=== PATIENT | male | born 1985 | race African-American/Black ===

== ENCOUNTER 2016-09-14 19:05 | Inpatient (IN) | payer SELFPAY ==
[~2016-09-14] VITALS: Ht 160 cm; Wt 56.0 kg
[2016-09-14] MEDS ORDERED: IV NORMAL SALINE 1000ML BAG 1,000 ML IV SCH (19:35)
--- NOTE | 2016-09-14 19:35 | PHYS DOC ---
Past Medical History Past Medical History: Pancreatitis Past Surgical History: No Surgical History Alcohol Use: Heavy Drug Use: None Adult General Chief Complaint Chief Complaint: ABDOMINAL PAIN HPI HPI Patient is a 31 year old male who presents with abdominal pain. Patient reports since Friday night (when he drank some alcohol) he has been having LUQ pain and N/V. Patient describes a pressure-like pain that is worse when he tries to eat or drink. He has been feeling nauseous as well; he vomited on but not since then. No fever, no diarrhea. Patient reports symptoms similar to prior episodes of pancreatitis. Review of Systems Review of Systems Constitutional: Denies fever or chills Eyes: Denies change in visual acuity or eye pain HENT: Denies nasal congestion or sore throat Respiratory: Denies cough or shortness of breath Cardiovascular: Denies chest pain GI: LUQ abdominal pain, nausea, vomiting. Denies bloody stools or diarrhea : Denies dysuria or hematuria Musculoskeletal: Denies back pain or joint pain Integument: Denies rash or skin lesions Neurologic: Denies headache, focal weakness or sensory changes Current Medications Current Medications Current Medications Medications (Trade) Dose Ordered Sig/Estuardo Start Time Stop Time Status Last Admin Dose Admin Famotidine (Pepcid) 20 mg 1X ONCE 09/14/16 19:45 09/14/16 19:46 DC 09/14/16 19:56 20 MG Morphine Sulfate 2 mg 1X ONCE 09/14/16 19:45 09/14/16 19:46 DC 09/14/16 19:55 2 MG Sodium Chloride (Iv Sodium Chloride 0.9% 1000ml Bag) 1,000 ml @ 1,000 mls/hr Q1H 09/14/16 19:35 09/14/16 20:34 DC 09/14/16 19:59 1,000 MLS/HR Allergies Allergies Allergies Coded Allergies Type Severity Reaction Last Updated Verified No Known Drug Allergies 03/24/14 No Physical Exam Physical Exam Constitutional: Well developed, well nourished, no acute distress, non-toxic appearance HENT: Normocephalic, atraumatic, bilateral external ears normal Eyes: EOMI, conjunctiva normal, no discharge Neck: Normal range of motion, no stridor Cardiovascular: Heart rate normal, regular rhythm, no murmur Lungs & Thorax: Bilateral breath sounds clear to auscultation Abdomen: Bowel sounds normal, soft, non-distended, LUQ/epigastric TTP without guarding or rebound Skin: Warm, dry, no erythema, no rash Extremities: No obvious deformity, no edema Neurologic: Alert and oriented X 3, no gross deficits noted Current Patient Data Vital Signs Vital Signs Date Time Temp Pulse Resp B/P Pulse Ox O2 Delivery O2 Flow Rate FiO2 09/14/16 19:55 13 98 Room Air 09/14/16 19:08 98.2 93 143/104 98.2 Lab Values Laboratory Tests Test 09/14/16 19:15 White Blood Count 8.8x10^3/uL (4.0-11.0) Red Blood Count 5.20x10^6/uL (4.30-5.70) Hemoglobin 14.5g/dL (13.0-17.5) Hematocrit 44.7% (39.0-53.0) Mean Corpuscular Volume 86fL (79-100) Mean Corpuscular Hemoglobin 28pg (25-35) Mean Corpuscular Hemoglobin Concent 33g/dL (31-37) Red Cell Distribution Width 15.6% (11.5-14.5) H Platelet Count 181x10^3/uL (140-400) Neutrophils (%) (Auto) 82% (31-73) H Lymphocytes (%) (Auto) 9% (24-48) L Monocytes (%) (Auto) 8% (0-9) Eosinophils (%) (Auto) 1% (0-3) Basophils (%) (Auto) 0% (0-3) Neutrophils # (Auto) 7.2x10^3uL (1.8-7.7) Lymphocytes # (Auto) 0.8x10^3/uL (1.0-4.8) L Monocytes # (Auto) 0.7x10^3/uL (0.0-1.1) Eosinophils # (Auto) 0.1x10^3/uL (0.0-0.7) Basophils # (Auto) 0.0x10^3/uL (0.0-0.2) Platelet Estimate Adequate (ADEQUATE) Giant Platelets Occ Sodium Level 140mmol/L (136-145) Potassium Level 4.1mmol/L (3.5-5.1) Chloride Level 99mmol/L (98-107) Carbon Dioxide Level 29mmol/L (21-32) Anion Gap 12 (6-14) Blood Urea Nitrogen 9mg/dL (8-26) Creatinine 0.8mg/dL (0.7-1.3) Estimated GFR (Cockcroft-Gault) 137.3 BUN/Creatinine Ratio 11 (6-20) Glucose Level 86mg/dL (70-99) Calcium Level 9.9mg/dL (8.5-10.1) Total Bilirubin 0.5mg/dL (0.2-1.0) Aspartate Amino Transferase (AST) 31U/L (15-37) Alanine Aminotransferase (ALT) 22U/L (16-63) Alkaline Phosphatase 54U/L (46-116) Total Protein 8.5g/dL (6.4-8.2) H Albumin 4.5g/dL (3.4-5.0) Albumin/Globulin Ratio 1.1 (1.0-1.7) Lipase 5026U/L (73-393) H Laboratory Tests 09/14/16 19:15 Laboratory Tests 09/14/16 19:15 EKG EKG [] Radiology/Procedures Radiology/Procedures [] Course & Med Decision Making Course & Med Decision Making Pertinent Labs and Imaging studies reviewed. (See chart for details) Patient is 31 year old male who presents with abdominal pain, nausea for the past few days after drinking alcohol. DDx includes pancreatitis, gastritis. Will check labs to evaluate. IVF bolus, pepcid, nausea meds, pain meds ordered for relief of symptoms. Labs notable for lipase >5000. Calcium, glucose wnl. Discussed results with patient, who continues to have significant pain. Discussed with Dr. Rose, will admit under his care for further evaluation and treatment. Dragon Disclaimer Dragon Disclaimer This electronic medical record was generated, in whole or in part, using a voice recognition dictation system. Departure Departure Impression: Primary Impression: Pancreatitis Disposition: ADMITTED INPATIENT Admitting Physician: Shaun Rose Condition: STABLE Referrals: NO PCP (PCP) Scripts No Active Prescriptions or Reported Meds OSBALDO HOGAN MD Sep 14, 2016 19:35
[2016-09-14 19:44] LABS: BASO % 0 % (0-3); EOS % 1 % (0-3); HEMATOCRIT 44.7 % (39.0-53.0); HEMOGLOBIN 14.5 g/dL (13.0-17.5); LYMPH # 0.8 x10^3/uL (1.0-4.8); LYMPH % 9 % (24-48); MEAN CORPUSCULAR HEMOGLOBIN 28 pg (25-35); MEAN CORPUSCULAR HGB CONC 33 g/dL (31-37); MEAN CORPUSCULAR VOLUME 86 fL (79-100); MONO % 8 % (0-9); NEUT % 82 % (31-73); PLATELET COUNT 181 x10^3/uL (140-400); RED CELL DISTRIBUTION WIDTH 15.6 % (11.5-14.5); WHITE BLOOD COUNT 8.8 x10^3/uL (4.0-11.0)
[2016-09-14] MEDS ORDERED: MORPHINE SULFATE 4 MG/ML DISP.SYRIN. IV ONE ×2 (19:45→21:30)
[2016-09-14] MEDS ORDERED: FAMOTIDINE 20 MG/2 ML VIAL IVP ONE (19:45)
[2016-09-14 19:59] LABS: CALCIUM 9.9 mg/dL (8.5-10.1); CREATININE 0.8 mg/dL (0.7-1.3); GFR 137.3
[2016-09-14 20:01] LABS: POTASSIUM 4.1 mmol/L (3.5-5.1)
[2016-09-14 20:05] LABS: ALBUMIN 4.5 g/dL (3.4-5.0); ALBUMIN/GLOBULIN RATIO 1.1 (1.0-1.7); TOTAL BILIRUBIN 0.5 mg/dL (0.2-1.0); TOTAL PROTEIN 8.5 g/dL (6.4-8.2)
[2016-09-14 20:35] LABS: PLT ESTIMATE ADEQUATE (ADEQUATE)
[2016-09-14] MEDS ORDERED: ONDANSETRON PF 4 MG/2 ML VIAL. IV ONE (21:30)
--- NOTE | 2016-09-14 21:50 | ACF ---
Admission Forms Criteria PANCREATITIS Clinical Indications for Admission to Inpatient Care (Place 'X' for any and all applicable criteria): Admission is indicated for ANY ONE of the following (1)(2)(3)(4): [X]I. Acute pancreatitis[A] as indicated by 2 or more of the following: [X]a) Abdominal pain (eg, epigastric, left upper quadrant) [X]b) Serum amylase or serum lipase greater than 3 times the upper limit of normal [ ]c) Characteristic findings from abdominal imaging (eg, pancreatic inflammation, pancreatic necrosis, peripancreatic fluid collection)[B] [ ]II. Pancreatitis (acute or chronic ) requiring inpatient care as indicated by 1 or more of the following : [ ]a) Inability to maintain oral hydration Hypoxemia [ ]b) Evidence of infection (eg, fever, peripancreatic abscess) [ ]c) Severe pain requiring acute inpatient management [ ]d) Hemodynamic instability [ ]e) Hypoxemia [ ]f) Acute renal failure [ ]g) Severe electrolyte abnormalities Extended stay beyond goal length of stay may be needed for (1)(11) [ ]a) Severe acute pancreatitis (10)(19) [ ]b) Persistent symptoms, ascites, or pleural effusion [ ]c) Abdominal compartment syndrome (10) [ ]d) Late complications [ ]e) Acute renal failure (27) [ ]f) Gallstones in gallbladder The original [employer] content created by [employer] has been revised. The portions of the content which have been revised are identified through the use of italic text or in bold,and [facility] has neither reviewed nor approved the modified material.All other unmodified content is copyright [employer]. Please see references footnoted in the original [employer] edition 2016 Admission Criteria Met?: Yes ALIA MCKINNEY Sep 14, 2016 21:50
[2016-09-14] MEDS: IV NORMAL SALINE 1000ML BAG 1,000 ML IV SCH (22:13)
[2016-09-14 22:25] VITALS: BP 118/78
[2016-09-14 23:00] VITALS: BP 141/76
[2016-09-15] MEDS: MORPHINE SULFATE 4 MG/ML DISP.SYRIN. IV PRN ×3 (00:10→14:49)
[2016-09-15 03:08] VITALS: BP 116/74
[2016-09-15] MEDS: IV NORMAL SALINE 1000ML BAG 1,000 ML IV SCH ×4 (05:48→20:20)
[2016-09-15 06:14] LABS: BASO % 1 % (0-3); EOS % 3 % (0-3); HEMATOCRIT 36.4 % (39.0-53.0); HEMOGLOBIN 11.9 g/dL (13.0-17.5); LYMPH # 1.1 x10^3/uL (1.0-4.8); LYMPH % 21 % (24-48); MEAN CORPUSCULAR HEMOGLOBIN 28 pg (25-35); MEAN CORPUSCULAR HGB CONC 33 g/dL (31-37); MEAN CORPUSCULAR VOLUME 85 fL (79-100); MONO % 11 % (0-9); NEUT % 65 % (31-73); PLATELET COUNT 144 x10^3/uL (140-400); RED BLOOD COUNT 4.27 x10^6/uL (4.30-5.70); RED CELL DISTRIBUTION WIDTH 15.6 % (11.5-14.5); WHITE BLOOD COUNT 5.4 x10^3/uL (4.0-11.0)
[2016-09-15 06:54] LABS: CALCIUM 8.5 mg/dL (8.5-10.1); CREATININE 0.8 mg/dL (0.7-1.3); GFR 137.3
[2016-09-15 07:00] VITALS: BP 123/73
[2016-09-15 07:30] LABS: POTASSIUM 2.9 mmol/L (3.5-5.1)
[2016-09-15] MEDS: ONDANSETRON PF 4 MG/2 ML VIAL. IV PRN ×3 (08:43→23:59)
[2016-09-15] MEDS: POTASSIUM CHLORIDE 10MEQ 100 ML IV SCH ×4 (08:44→12:42)
[2016-09-15] MEDS ORDERED: LORAZEPAM 2 MG/ML VIAL IV PRN (10:30)
[2016-09-15] MEDS ORDERED: HALOPERIDOL LACT 5 MG/ML VIAL. IVP PRN (10:30)
--- NOTE | 2016-09-15 10:32 | PDOC1 ---
History and Physical Past Medical History Past Medical History pancreatitis. Family History Family History no pancreatitis. Social History Smoke: No ALCOHOL: heavy Current Problem List Problem List Problems Medical Problems: (1) Pancreatitis Status: Acute Current Medications Current Medications Current Medications Medications (Trade) Dose Ordered Sig/Estuardo Start Time Stop Time Status Last Admin Dose Admin Famotidine (Pepcid) 20 mg 1X ONCE 09/14/16 19:45 09/14/16 19:46 DC 09/14/16 19:56 20 MG Haloperidol Lactate (Haldol) 5 mg PRN Q4HRS PRN 09/15/16 10:30 Lorazepam (Ativan) 2 mg PRN Q1HR PRN 09/15/16 10:30 Morphine Sulfate 4 mg 4 mg PRN Q2HR PRN 09/14/16 21:30 09/15/16 21:29 09/15/16 05:48 4 MG Multivitamins/ Minerals/Thiamine HCl/Folic Acid/ Sodium Chloride (Infuvite Adult/ Iv Sodium Chloride 0.9% 1000ml Bag) 1,011.2 ml @ 100 mls/ hr DAILY 09/15/16 11:30 09/21/16 11:29 Ondansetron HCl (Zofran) 4 mg PRN Q8HRS PRN 09/14/16 21:30 09/15/16 21:29 09/15/16 08:43 4 MG Potassium Chloride 100 ml @ 100 mls/hr Q1H 09/15/16 08:30 09/15/16 12:29 09/15/16 08:44 100 MLS/HR Sodium Chloride 1,000 ml @ 125 mls/hr Q8H 09/14/16 21:30 09/15/16 21:29 09/15/16 05:48 125 MLS/HR Sodium Chloride (Iv Sodium Chloride 0.9% 1000ml Bag) 1,000 ml @ 1,000 mls/hr Q1H 09/14/16 19:35 09/14/16 20:34 DC 09/14/16 19:59 1,000 MLS/HR Allergies Allergies Allergies Coded Allergies Type Severity Reaction Last Updated Verified No Known Drug Allergies 03/24/14 No ROS Review of System CONSTITUTIONAL: No fever or chills EYES: No recent changes SKIN: No rash or itching CARDIOVASCULAR: No chest pain, syncope, palpitations, or edema RESPIRATORY: No SOB or cough GASTROINTESTINAL: nausea, vomiting or abdominal pain NEUROLOGICAL: No headaches or weakness ENDOCRINE: No cold or heat intolerance GENITOURINARY: No urgency or frequency of urination MUSCULOSKELETAL: No back pain or joint pain LYMPHATICS: No enlarged lymph nodes PSYCHIATRIC: No anxiety or depression Physical Exam Physical Exam GEN.: No apparent distress. Alert and oriented. HEENT: Head is normocephalic, atraumatic NECK: Supple. no jvd LUNGS: Clear to auscultation. normal airflow HEART: RRR, S1, S2 present. Peripheral pulses intact ABDOMEN: Soft, nontender. Positive bowel sounds. EXTREMITIES: Without any cyanosis. NEUROLOGIC: Normal speech, normal tone PSYCHIATRIC: Normal affect, normal mood. SKIN: No visible ulcerations Vitals Vitals Vital Signs Date Time Temp Pulse Resp B/P Pulse Ox O2 Delivery O2 Flow Rate FiO2 09/15/16 08:00 Room Air 09/15/16 07:00 97.3 75 16 123/73 96 97.3 09/15/16 05:48 3.0 Labs Labs Laboratory Tests Test 09/14/16 19:15 09/15/16 05:10 White Blood Count 8.8x10^3/uL (4.0-11.0) 5.4x10^3/uL (4.0-11.0) Red Blood Count 5.20x10^6/uL (4.30-5.70) 4.27x10^6/uL (4.30-5.70) Hemoglobin 14.5g/dL (13.0-17.5) 11.9g/dL (13.0-17.5) Hematocrit 44.7% (39.0-53.0) 36.4% (39.0-53.0) Mean Corpuscular Volume 86fL (79-100) 85fL (79-100) Mean Corpuscular Hemoglobin 28pg (25-35) 28pg (25-35) Mean Corpuscular Hemoglobin Concent 33g/dL (31-37) 33g/dL (31-37) Red Cell Distribution Width 15.6% (11.5-14.5) 15.6% (11.5-14.5) Platelet Count 181x10^3/uL (140-400) 144x10^3/uL (140-400) Neutrophils (%) (Auto) 82% (31-73) 65% (31-73) Lymphocytes (%) (Auto) 9% (24-48) 21% (24-48) Monocytes (%) (Auto) 8% (0-9) 11% (0-9) Eosinophils (%) (Auto) 1% (0-3) 3% (0-3) Basophils (%) (Auto) 0% (0-3) 1% (0-3) Neutrophils # (Auto) 7.2x10^3uL (1.8-7.7) 3.5x10^3uL (1.8-7.7) Lymphocytes # (Auto) 0.8x10^3/uL (1.0-4.8) 1.1x10^3/uL (1.0-4.8) Monocytes # (Auto) 0.7x10^3/uL (0.0-1.1) 0.6x10^3/uL (0.0-1.1) Eosinophils # (Auto) 0.1x10^3/uL (0.0-0.7) 0.1x10^3/uL (0.0-0.7) Basophils # (Auto) 0.0x10^3/uL (0.0-0.2) 0.0x10^3/uL (0.0-0.2) Platelet Estimate Adequate (ADEQUATE) Giant Platelets Occ Sodium Level 140mmol/L (136-145) 139mmol/L (136-145) Potassium Level 4.1mmol/L (3.5-5.1) 2.9mmol/L (3.5-5.1) Chloride Level 99mmol/L (98-107) 104mmol/L (98-107) Carbon Dioxide Level 29mmol/L (21-32) 27mmol/L (21-32) Anion Gap 12 (6-14) 8 (6-14) Blood Urea Nitrogen 9mg/dL (8-26) 8mg/dL (8-26) Creatinine 0.8mg/dL (0.7-1.3) 0.8mg/dL (0.7-1.3) Estimated GFR (Cockcroft-Gault) 137.3 137.3 BUN/Creatinine Ratio 11 (6-20) Glucose Level 86mg/dL (70-99) 129mg/dL (70-99) Calcium Level 9.9mg/dL (8.5-10.1) 8.5mg/dL (8.5-10.1) Total Bilirubin 0.5mg/dL (0.2-1.0) Aspartate Amino Transf (AST/SGOT) 31U/L (15-37) Alanine Aminotransferase (ALT/SGPT) 22U/L (16-63) Alkaline Phosphatase 54U/L (46-116) Total Protein 8.5g/dL (6.4-8.2) Albumin 4.5g/dL (3.4-5.0) Albumin/Globulin Ratio 1.1 (1.0-1.7) Lipase 5026U/L (73-393) Laboratory Tests Test 09/14/16 19:15 09/15/16 05:10 White Blood Count 8.8x10^3/uL (4.0-11.0) 5.4x10^3/uL (4.0-11.0) Red Blood Count 5.20x10^6/uL (4.30-5.70) 4.27x10^6/uL (4.30-5.70) Hemoglobin 14.5g/dL (13.0-17.5) 11.9g/dL (13.0-17.5) Hematocrit 44.7% (39.0-53.0) 36.4% (39.0-53.0) Mean Corpuscular Volume 86fL (79-100) 85fL (79-100) Mean Corpuscular Hemoglobin 28pg (25-35) 28pg (25-35) Mean Corpuscular Hemoglobin Concent 33g/dL (31-37) 33g/dL (31-37) Red Cell Distribution Width 15.6% (11.5-14.5) 15.6% (11.5-14.5) Platelet Count 181x10^3/uL (140-400) 144x10^3/uL (140-400) Neutrophils (%) (Auto) 82% (31-73) 65% (31-73) Lymphocytes (%) (Auto) 9% (24-48) 21% (24-48) Monocytes (%) (Auto) 8% (0-9) 11% (0-9) Eosinophils (%) (Auto) 1% (0-3) 3% (0-3) Basophils (%) (Auto) 0% (0-3) 1% (0-3) Neutrophils # (Auto) 7.2x10^3uL (1.8-7.7) 3.5x10^3uL (1.8-7.7) Lymphocytes # (Auto) 0.8x10^3/uL (1.0-4.8) 1.1x10^3/uL (1.0-4.8) Monocytes # (Auto) 0.7x10^3/uL (0.0-1.1) 0.6x10^3/uL (0.0-1.1) Eosinophils # (Auto) 0.1x10^3/uL (0.0-0.7) 0.1x10^3/uL (0.0-0.7) Basophils # (Auto) 0.0x10^3/uL (0.0-0.2) 0.0x10^3/uL (0.0-0.2) Platelet Estimate Adequate (ADEQUATE) Giant Platelets Occ Sodium Level 140mmol/L (136-145) 139mmol/L (136-145) Potassium Level 4.1mmol/L (3.5-5.1) 2.9mmol/L (3.5-5.1) Chloride Level 99mmol/L (98-107) 104mmol/L (98-107) Carbon Dioxide Level 29mmol/L (21-32) 27mmol/L (21-32) Anion Gap 12 (6-14) 8 (6-14) Blood Urea Nitrogen 9mg/dL (8-26) 8mg/dL (8-26) Creatinine 0.8mg/dL (0.7-1.3) 0.8mg/dL (0.7-1.3) Estimated GFR (Cockcroft-Gault) 137.3 137.3 BUN/Creatinine Ratio 11 (6-20) Glucose Level 86mg/dL (70-99) 129mg/dL (70-99) Calcium Level 9.9mg/dL (8.5-10.1) 8.5mg/dL (8.5-10.1) Total Bilirubin 0.5mg/dL (0.2-1.0) Aspartate Amino Transf (AST/SGOT) 31U/L (15-37) Alanine Aminotransferase (ALT/SGPT) 22U/L (16-63) Alkaline Phosphatase 54U/L (46-116) Total Protein 8.5g/dL (6.4-8.2) Albumin 4.5g/dL (3.4-5.0) Albumin/Globulin Ratio 1.1 (1.0-1.7) Lipase 5026U/L (73-393) VTE Prophylaxis Ordered VTE Prophylaxis Devices: Yes VTE Pharmacological Prophylaxi: Yes PAVAN BROWN MD Sep 15, 2016 10:32
[2016-09-15 11:00] VITALS: BP 127/76
[2016-09-15] MEDS: MVI, ADULT NO.4 WITH VIT K 10 ML, THIAMINE 100 MG, FOLIC ACID 1 MG in IV NORMAL SALINE ... IV SCH ×4 (11:28)
[2016-09-15] MEDS: ENOXAPARIN 40 MG/0.4 ML DISP.SYRIN. SQ SCH (11:29)
[2016-09-15 15:00] VITALS: BP 131/82
--- NOTE | 2016-09-15 18:11 | HP ---
ADMIT DATE: 09/15/2016 CHIEF COMPLAINT: Abdominal pain. HISTORY OF PRESENT ILLNESS: This is a 31-year-old -[place] male. The patient has prior history of pancreatitis who presented to the ER with severe abdominal pain since Friday. It was started after he drank some alcohol. The patient has a prior history of pancreatitis. Abdominal pain is located in the left upper quadrant and epigastric in nature. He also noted to have some nausea and vomiting. The patient noted this is his fourth episode of pancreatitis and is getting better with treatment and pain control. However, he tried to eat something and his pain made worse again. He denies any fever, chills, nausea, vomiting or any complications ____ in the past. PAST MEDICAL HISTORY: Please see my electronic H and P. REVIEW OF SYSTEMS: Please see my electronic H and P. PHYSICAL EXAMINATION: Please see my electronic H and P. LABORATORY FINDINGS: Sodium 140, potassium 4.1, chloride is 99, carbon dioxide 29, anion gap is 12, BUN is 9, creatinine 0.3, glucose is 86, albumin is 1.1, lipase is 5026. Hematology: Hemoglobin is 14.5, MCV is 86, platelets 181. Potassium is down to 2.9 today this morning. IMAGING STUDIES: No imaging studies done. However, I did review his old CAT scan from 02/2016. There was suspicion for acute pancreatitis. ASSESSMENT: 1. Acute on chronic pancreatitis. 2. Severe hypokalemia. 3. Intractable abdominal pain due to above. PLAN: 1. Keep the patient n.p.o. and IV hydration at least 125 mL/hour and replace potassium chloride with IV KCl. 2. Pain control with IV morphine q. 2 hours as needed and avoid CO2 narcosis 3. Multivitamin replacement and CIWA protocol to prevent alcohol withdrawal prevention with Ativan and p.r.n. Haldol. 4. If the patient symptoms did not improve or have worsening of symptoms such as fever or increased abdominal pain, consult Gastroenterology and repeat CT of the abdomen. 5. No DVT prophylaxis. 6. Plan has been explained to the patient. All questions answered. PAVAN BROWN MD DR: LUIS/david JOB#: [id number] / [id number] MTDD
[2016-09-15 19:09] VITALS: BP 130/88
[2016-09-15 23:00] VITALS: BP 126/90
[2016-09-15] MEDS ORDERED: MORPHINE SULFATE 4 MG/ML DISP.SYRIN. IV PRN (23:45)
[2016-09-16] MEDS: IV NORMAL SALINE 1000ML BAG 1,000 ML IV SCH ×3 (02:21→10:28)
[2016-09-16 03:00] VITALS: BP 121/77
[2016-09-16 07:00] VITALS: BP 123/86
--- NOTE | 2016-09-16 07:59 | PDOC ---
PROGRESS NOTES Chief Complaint Chief Complaint Alcoholic pancreatitis ASSESEMENT AND PLAN: 1. pancreatitis: acute. worsening by labs, although clinically improved. keep clear liquids for now, advance poss tonight 2. Hypokalemia: improving. replete IV 3. Hypomagnesimia: new. replete IV 4. Abd pain: on Morphine PRN. minimize use 5. EtOH W/D: CIWA protocol 6. Prophylaxis: lovenox Vitals Vitals Vital Signs Date Time Temp Pulse Resp B/P Pulse Ox O2 Delivery O2 Flow Rate FiO2 09/16/16 03:00 97.6 78 20 121/77 99 Room Air 97.6 Physical Exam General: Alert, Oriented X3, Cooperative Heart: Regular rate Lungs: Clear Abdomen: Normal bowel sounds, Other (min TTP throughout) Extremities: No edema Skin: No rashes Labs LABS Laboratory Tests Test 09/16/16 05:00 Lipase 8989U/L (73-393) Review of Systems Review of Systems feels much improved. abd pain with movement or pressure only. Comment Review of Relevant I have reviewed the following items donnie (where applicable) has been applied. Labs Laboratory Tests Test 09/14/16 19:15 09/15/16 05:10 09/16/16 05:00 White Blood Count 8.8x10^3/uL (4.0-11.0) 5.4x10^3/uL (4.0-11.0) Red Blood Count 5.20x10^6/uL (4.30-5.70) 4.27x10^6/uL (4.30-5.70) Hemoglobin 14.5g/dL (13.0-17.5) 11.9g/dL (13.0-17.5) Hematocrit 44.7% (39.0-53.0) 36.4% (39.0-53.0) Mean Corpuscular Volume 86fL (79-100) 85fL (79-100) Mean Corpuscular Hemoglobin 28pg (25-35) 28pg (25-35) Mean Corpuscular Hemoglobin Concent 33g/dL (31-37) 33g/dL (31-37) Red Cell Distribution Width 15.6% (11.5-14.5) 15.6% (11.5-14.5) Platelet Count 181x10^3/uL (140-400) 144x10^3/uL (140-400) Neutrophils (%) (Auto) 82% (31-73) 65% (31-73) Lymphocytes (%) (Auto) 9% (24-48) 21% (24-48) Monocytes (%) (Auto) 8% (0-9) 11% (0-9) Eosinophils (%) (Auto) 1% (0-3) 3% (0-3) Basophils (%) (Auto) 0% (0-3) 1% (0-3) Neutrophils # (Auto) 7.2x10^3uL (1.8-7.7) 3.5x10^3uL (1.8-7.7) Lymphocytes # (Auto) 0.8x10^3/uL (1.0-4.8) 1.1x10^3/uL (1.0-4.8) Monocytes # (Auto) 0.7x10^3/uL (0.0-1.1) 0.6x10^3/uL (0.0-1.1) Eosinophils # (Auto) 0.1x10^3/uL (0.0-0.7) 0.1x10^3/uL (0.0-0.7) Basophils # (Auto) 0.0x10^3/uL (0.0-0.2) 0.0x10^3/uL (0.0-0.2) Platelet Estimate Adequate (ADEQUATE) Giant Platelets Occ Sodium Level 140mmol/L (136-145) 139mmol/L (136-145) Potassium Level 4.1mmol/L (3.5-5.1) 2.9mmol/L (3.5-5.1) Chloride Level 99mmol/L (98-107) 104mmol/L (98-107) Carbon Dioxide Level 29mmol/L (21-32) 27mmol/L (21-32) Anion Gap 12 (6-14) 8 (6-14) Blood Urea Nitrogen 9mg/dL (8-26) 8mg/dL (8-26) Creatinine 0.8mg/dL (0.7-1.3) 0.8mg/dL (0.7-1.3) Estimated GFR (Cockcroft-Gault) 137.3 137.3 BUN/Creatinine Ratio 11 (6-20) Glucose Level 86mg/dL (70-99) 129mg/dL (70-99) Calcium Level 9.9mg/dL (8.5-10.1) 8.5mg/dL (8.5-10.1) Total Bilirubin 0.5mg/dL (0.2-1.0) Aspartate Amino Transf (AST/SGOT) 31U/L (15-37) Alanine Aminotransferase (ALT/SGPT) 22U/L (16-63) Alkaline Phosphatase 54U/L (46-116) Total Protein 8.5g/dL (6.4-8.2) Albumin 4.5g/dL (3.4-5.0) Albumin/Globulin Ratio 1.1 (1.0-1.7) Lipase 5026U/L (73-393) 8989U/L (73-393) Laboratory Tests Test 09/16/16 05:00 Lipase 8989U/L (73-393) Medications Current Medications Sodium Chloride (Iv Sodium Chloride 0.9% 1000ml Bag) 1,000 ml @ 1,000 mls/hr Q1H IV Last administered on 09/14/16 19:59; Start 09/14/16 at 19:35; Stop at 20:34; Status DC Famotidine (Pepcid) 20 mg 1X ONCE IVP Last administered on 09/14/16 19:56; Start 09/14/16 at 19:45; Stop 09/14/16 at 19:46; Status DC Morphine Sulfate 2 mg 1X ONCE IV Last administered on 09/14/16 19:55; Start 09/14/16 at 19:45; Stop 09/14/16 at 19:46; Status DC Morphine Sulfate 4 mg 1X ONCE IV Last administered on 09/14/16 21:36; Start 09/14/16 at 21:30; Stop 09/14/16 at 21:31; Status DC Ondansetron HCl (Zofran) 4 mg 1X ONCE IV Last administered on 09/14/16 21:32 ; Start 09/14/16 at 21:30; Stop 09/14/16 at 21:31; Status DC Ondansetron HCl (Zofran) 4 mg PRN Q8HRS PRN IV NAUSEA/VOMITING Last administered on 09/15/16 16:48; Start 09/14/16 at 21:30; Stop 09/15/16 at 21:29 ; Status DC Morphine Sulfate 4 mg 4 mg PRN Q2HR PRN IV PAIN Last administered on 09/15/16 14:49; Start 09/14/16 at 21:30; Stop 09/15/16 at 21:29; Status DC Sodium Chloride 1,000 ml @ 125 mls/hr Q8H IV Last administered on 09/15/16 05 :48; Start 09/14/16 at 21:30; Stop 09/15/16 at 10:30; Status DC Potassium Chloride 100 ml @ 100 mls/hr Q1H IV Last administered on 09/15/16 12:42; Start 09/15/16 at 08:30; Stop 09/15/16 at 12:29; Status DC Multivitamins/ Minerals/Thiamine HCl/Folic Acid/ Sodium Chloride (Infuvite Adult / Iv Sodium Chloride 0.9% 1000ml Bag) 1,011.2 ml @ 100 mls/ hr DAILY IV Last administered on 09/15/16 11:28; Start 09/15/16 at 11:30; Stop 09/21/16 at 11:29 Lorazepam (Ativan) 2 mg PRN Q1HR PRN IV For CIWA 8-14; Start 09/15/16 at 10:30 Haloperidol Lactate 5 mg 5 mg PRN Q4HRS PRN IVP Hallucinatns,Confusn,Delirium; Start 09/15/16 at 10:30 Sodium Chloride (Iv Sodium Chloride 0.9% 1000ml Bag) 1,000 ml @ 125 mls/hr Q8H IV Last administered on 09/16/16 02:21; Start 09/15/16 at 10:28; Stop at 10:27 Enoxaparin Sodium 40 mg 40 mg Q24H SQ Last administered on 09/15/16 11:29; Start 09/15/16 at 11:00 Sodium Chloride (Iv Sodium Chloride 0.9% 1000ml Bag) 1,000 ml @ 125 mls/hr Q8H IV Last administered on 09/16/16 02:21; Start 09/15/16 at 19:30 Morphine Sulfate 4 mg PRN Q4HRS PRN IV PAIN Last administered on 09/16/16 00: 00; Start 09/15/16 at 23:45 Ondansetron HCl (Zofran) 4 mg PRN Q6HRS PRN IV NAUSEA/VOMITING Last administered on 09/15/16 23:59; Start 09/15/16 at 23:45 Active Scripts Active No Active Prescriptions or Reported Medications Vitals/I & O Vital Sign - Last 24 Hours 09/15/16 09/15/16 09/15/16 09/15/16 08:00 11:00 15:00 19:09 Temp 97.9 98.1 98.0 97.9 98.1 98.0 Pulse 84 71 70 Resp 16 16 20 B/P 127/76 131/82 130/88 Pulse Ox 99 100 99 O2 Delivery Room Air Room Air Room Air Room Air 09/15/16 09/15/16 09/16/16 09/16/16 20:03 23:00 00:00 00:32 Temp 98.2 98.2 Pulse 74 Resp 20 18 18 B/P 126/90 Pulse Ox 97 97 97 O2 Delivery Room Air Room Air Room Air Room Air 09/16/16 03:00 Temp 97.6 97.6 Pulse 78 Resp 20 B/P 121/77 Pulse Ox 99 O2 Delivery Room Air Intake and Output 09/15/16 09/15/16 09/16/16 15:00 23:00 07:00 Intake Total 480 ml 1491.2 ml 1895 ml Output Total 800 ml 700 ml Balance 480 ml 691.2 ml 1195 ml MIRA LIU MD Sep 16, 2016 07:59
[2016-09-16 08:11] LABS: BASO % 0 % (0-3); EOS % 2 % (0-3); HEMATOCRIT 35.6 % (39.0-53.0); HEMOGLOBIN 11.5 g/dL (13.0-17.5); LYMPH % 21 % (24-48); MEAN CORPUSCULAR HEMOGLOBIN 28 pg (25-35); MEAN CORPUSCULAR HGB CONC 32 g/dL (31-37); MEAN CORPUSCULAR VOLUME 86 fL (79-100); MONO % 8 % (0-9); NEUT % 68 % (31-73); PLATELET COUNT 143 x10^3/uL (140-400); RED BLOOD COUNT 4.13 x10^6/uL (4.30-5.70); RED CELL DISTRIBUTION WIDTH 15.2 % (11.5-14.5); WHITE BLOOD COUNT 4.6 x10^3/uL (4.0-11.0)
[2016-09-16 08:16] LABS: CALCIUM 8.8 mg/dL (8.5-10.1); CREATININE 0.8 mg/dL (0.7-1.3); GFR 137.3; POTASSIUM 3.3 mmol/L (3.5-5.1)
[2016-09-16 08:22] LABS: ALBUMIN 3.2 g/dL (3.4-5.0); ALBUMIN/GLOBULIN RATIO 0.9 (1.0-1.7); MAGNESIUM 1.7 mg/dL (1.8-2.4); TOTAL BILIRUBIN 0.4 mg/dL (0.2-1.0); TOTAL PROTEIN 6.8 g/dL (6.4-8.2)
[2016-09-16] MEDS: MVI, ADULT NO.4 WITH VIT K 10 ML, THIAMINE 100 MG, FOLIC ACID 1 MG in IV NORMAL SALINE ... IV SCH ×4 (09:55)
[2016-09-16] MEDS ORDERED: MORPHINE SULFATE 2 MG/ML DISP.SYRIN. IV PRN (11:00)
[2016-09-16 11:20] VITALS: BP 124/82
[2016-09-16] MEDS: ENOXAPARIN 40 MG/0.4 ML DISP.SYRIN. SQ SCH (11:29)
[2016-09-16] MEDS ORDERED: MAGNESIUM SULFATE 2GM 50 ML IV ONE (11:30)
[2016-09-16 15:00] VITALS: BP 132/81
[2016-09-16] MEDS: POTASSIUM CHLORIDE 30 MEQ in IV 1/2 NORMAL SALINE 1,000 ML IV SCH (15:15)
[2016-09-16 19:00] VITALS: BP 135/88
[2016-09-16] MEDS: ONDANSETRON PF 4 MG/2 ML VIAL. IV PRN (21:03)
[2016-09-16] MEDS: MORPHINE SULFATE 2 MG/ML DISP.SYRIN. IV PRN (21:11)
[2016-09-16 23:00] VITALS: BP 129/89
[2016-09-17] MEDS: MORPHINE SULFATE 2 MG/ML DISP.SYRIN. IV PRN ×2 (01:13→23:07)
[2016-09-17 05:39] LABS: BASO % 1 % (0-3); EOS % 2 % (0-3); HEMATOCRIT 35.4 % (39.0-53.0); HEMOGLOBIN 11.3 g/dL (13.0-17.5); LYMPH # 1.2 x10^3/uL (1.0-4.8); LYMPH % 27 % (24-48); MEAN CORPUSCULAR HEMOGLOBIN 28 pg (25-35); MEAN CORPUSCULAR HGB CONC 32 g/dL (31-37); MEAN CORPUSCULAR VOLUME 86 fL (79-100); MONO % 11 % (0-9); NEUT % 59 % (31-73); PLATELET COUNT 152 x10^3/uL (140-400); RED CELL DISTRIBUTION WIDTH 15.1 % (11.5-14.5); WHITE BLOOD COUNT 4.3 x10^3/uL (4.0-11.0)
[2016-09-17 05:50] LABS: ALBUMIN 3.1 g/dL (3.4-5.0); ALBUMIN/GLOBULIN RATIO 0.8 (1.0-1.7); CALCIUM 8.7 mg/dL (8.5-10.1); CREATININE 0.9 mg/dL (0.7-1.3); GFR 119.9; MAGNESIUM 2.2 mg/dL (1.8-2.4); POTASSIUM 3.8 mmol/L (3.5-5.1); TOTAL BILIRUBIN 0.2 mg/dL (0.2-1.0); TOTAL PROTEIN 6.8 g/dL (6.4-8.2)
[2016-09-17 07:00] VITALS: BP 120/84
[2016-09-17] MEDS: POTASSIUM CHLORIDE 30 MEQ in IV 1/2 NORMAL SALINE 1,000 ML IV SCH ×2 (10:01→23:01)
[2016-09-17] MEDS: MVI, ADULT NO.4 WITH VIT K 10 ML, THIAMINE 100 MG, FOLIC ACID 1 MG in IV NORMAL SALINE ... IV SCH ×4 (10:01)
[2016-09-17] MEDS: ENOXAPARIN 40 MG/0.4 ML DISP.SYRIN. SQ SCH (10:03)
[2016-09-17] MEDS ORDERED: ACETAMINOPHEN 325 MG TABLET. PO PRN (10:15)
--- NOTE | 2016-09-17 10:21 | PDOC ---
PROGRESS NOTES Chief Complaint Chief Complaint Alcoholic pancreatitis ASSESEMENT AND PLAN: 1. pancreatitis: acute. worsening by labs, although clinically improved. keep clear liquids for now, advance poss tonight 2. Hypokalemia: improving. replete IV 3. Hypomagnesimia: new. replete IV 4. Abd pain: on Morphine PRN. minimize use 5. EtOH W/D: CIWA protocol 6. Prophylaxis: lovenox increase IVF, hope lipase to decrease tm and dc tmr Vitals Vitals Vital Signs Date Time Temp Pulse Resp B/P Pulse Ox O2 Delivery O2 Flow Rate FiO2 09/17/16 08:00 Room Air 09/17/16 07:00 97.8 75 17 120/84 100 97.8 Physical Exam General: Alert, Oriented X3, Cooperative Heart: Regular rate Lungs: Clear Abdomen: Normal bowel sounds, No tenderness, Other ( ) Extremities: No edema Skin: No rashes Labs LABS Laboratory Tests Test 09/17/16 04:55 White Blood Count 4.3x10^3/uL (4.0-11.0) Red Blood Count 4.10x10^6/uL (4.30-5.70) Hemoglobin 11.3g/dL (13.0-17.5) Hematocrit 35.4% (39.0-53.0) Mean Corpuscular Volume 86fL (79-100) Mean Corpuscular Hemoglobin 28pg (25-35) Mean Corpuscular Hemoglobin Concent 32g/dL (31-37) Red Cell Distribution Width 15.1% (11.5-14.5) Platelet Count 152x10^3/uL (140-400) Neutrophils (%) (Auto) 59% (31-73) Lymphocytes (%) (Auto) 27% (24-48) Monocytes (%) (Auto) 11% (0-9) Eosinophils (%) (Auto) 2% (0-3) Basophils (%) (Auto) 1% (0-3) Neutrophils # (Auto) 2.5x10^3uL (1.8-7.7) Lymphocytes # (Auto) 1.2x10^3/uL (1.0-4.8) Monocytes # (Auto) 0.5x10^3/uL (0.0-1.1) Eosinophils # (Auto) 0.1x10^3/uL (0.0-0.7) Basophils # (Auto) 0.0x10^3/uL (0.0-0.2) Sodium Level 141mmol/L (136-145) Potassium Level 3.8mmol/L (3.5-5.1) Chloride Level 108mmol/L (98-107) Carbon Dioxide Level 26mmol/L (21-32) Anion Gap 7 (6-14) Blood Urea Nitrogen 5mg/dL (8-26) Creatinine 0.9mg/dL (0.7-1.3) Estimated GFR (Cockcroft-Gault) 119.9 BUN/Creatinine Ratio 6 (6-20) Glucose Level 105mg/dL (70-99) Calcium Level 8.7mg/dL (8.5-10.1) Magnesium Level 2.2mg/dL (1.8-2.4) Total Bilirubin 0.2mg/dL (0.2-1.0) Aspartate Amino Transf (AST/SGOT) 22U/L (15-37) Alanine Aminotransferase (ALT/SGPT) 18U/L (16-63) Alkaline Phosphatase 42U/L (46-116) Total Protein 6.8g/dL (6.4-8.2) Albumin 3.1g/dL (3.4-5.0) Albumin/Globulin Ratio 0.8 (1.0-1.7) Lipase 2044U/L (73-393) Review of Systems Review of Systems no fever, chills, sob or chest pain Assessment and Plan Assessmemt and Plan Problems Medical Problems: (1) Pancreatitis Status: Acute Problems: Comment Review of Relevant I have reviewed the following items donnie (where applicable) has been applied. Labs Laboratory Tests Test 09/16/16 05:00 09/17/16 04:55 White Blood Count 4.6x10^3/uL (4.0-11.0) 4.3x10^3/uL (4.0-11.0) Red Blood Count 4.13x10^6/uL (4.30-5.70) 4.10x10^6/uL (4.30-5.70) Hemoglobin 11.5g/dL (13.0-17.5) 11.3g/dL (13.0-17.5) Hematocrit 35.6% (39.0-53.0) 35.4% (39.0-53.0) Mean Corpuscular Volume 86fL (79-100) 86fL (79-100) Mean Corpuscular Hemoglobin 28pg (25-35) 28pg (25-35) Mean Corpuscular Hemoglobin Concent 32g/dL (31-37) 32g/dL (31-37) Red Cell Distribution Width 15.2% (11.5-14.5) 15.1% (11.5-14.5) Platelet Count 143x10^3/uL (140-400) 152x10^3/uL (140-400) Neutrophils (%) (Auto) 68% (31-73) 59% (31-73) Lymphocytes (%) (Auto) 21% (24-48) 27% (24-48) Monocytes (%) (Auto) 8% (0-9) 11% (0-9) Eosinophils (%) (Auto) 2% (0-3) 2% (0-3) Basophils (%) (Auto) 0% (0-3) 1% (0-3) Neutrophils # (Auto) 3.2x10^3uL (1.8-7.7) 2.5x10^3uL (1.8-7.7) Lymphocytes # (Auto) 1.0x10^3/uL (1.0-4.8) 1.2x10^3/uL (1.0-4.8) Monocytes # (Auto) 0.4x10^3/uL (0.0-1.1) 0.5x10^3/uL (0.0-1.1) Eosinophils # (Auto) 0.1x10^3/uL (0.0-0.7) 0.1x10^3/uL (0.0-0.7) Basophils # (Auto) 0.0x10^3/uL (0.0-0.2) 0.0x10^3/uL (0.0-0.2) Sodium Level 140mmol/L (136-145) 141mmol/L (136-145) Potassium Level 3.3mmol/L (3.5-5.1) 3.8mmol/L (3.5-5.1) Chloride Level 106mmol/L (98-107) 108mmol/L (98-107) Carbon Dioxide Level 27mmol/L (21-32) 26mmol/L (21-32) Anion Gap 7 (6-14) 7 (6-14) Blood Urea Nitrogen 3mg/dL (8-26) 5mg/dL (8-26) Creatinine 0.8mg/dL (0.7-1.3) 0.9mg/dL (0.7-1.3) Estimated GFR (Cockcroft-Gault) 137.3 119.9 BUN/Creatinine Ratio 4 (6-20) 6 (6-20) Glucose Level 111mg/dL (70-99) 105mg/dL (70-99) Calcium Level 8.8mg/dL (8.5-10.1) 8.7mg/dL (8.5-10.1) Magnesium Level 1.7mg/dL (1.8-2.4) 2.2mg/dL (1.8-2.4) Total Bilirubin 0.4mg/dL (0.2-1.0) 0.2mg/dL (0.2-1.0) Aspartate Amino Transf (AST/SGOT) 25U/L (15-37) 22U/L (15-37) Alanine Aminotransferase (ALT/SGPT) 17U/L (16-63) 18U/L (16-63) Alkaline Phosphatase 41U/L (46-116) 42U/L (46-116) Total Protein 6.8g/dL (6.4-8.2) 6.8g/dL (6.4-8.2) Albumin 3.2g/dL (3.4-5.0) 3.1g/dL (3.4-5.0) Albumin/Globulin Ratio 0.9 (1.0-1.7) 0.8 (1.0-1.7) Lipase 8989U/L (73-393) 2044U/L (73-393) Laboratory Tests Test 09/17/16 04:55 White Blood Count 4.3x10^3/uL (4.0-11.0) Red Blood Count 4.10x10^6/uL (4.30-5.70) Hemoglobin 11.3g/dL (13.0-17.5) Hematocrit 35.4% (39.0-53.0) Mean Corpuscular Volume 86fL (79-100) Mean Corpuscular Hemoglobin 28pg (25-35) Mean Corpuscular Hemoglobin Concent 32g/dL (31-37) Red Cell Distribution Width 15.1% (11.5-14.5) Platelet Count 152x10^3/uL (140-400) Neutrophils (%) (Auto) 59% (31-73) Lymphocytes (%) (Auto) 27% (24-48) Monocytes (%) (Auto) 11% (0-9) Eosinophils (%) (Auto) 2% (0-3) Basophils (%) (Auto) 1% (0-3) Neutrophils # (Auto) 2.5x10^3uL (1.8-7.7) Lymphocytes # (Auto) 1.2x10^3/uL (1.0-4.8) Monocytes # (Auto) 0.5x10^3/uL (0.0-1.1) Eosinophils # (Auto) 0.1x10^3/uL (0.0-0.7) Basophils # (Auto) 0.0x10^3/uL (0.0-0.2) Sodium Level 141mmol/L (136-145) Potassium Level 3.8mmol/L (3.5-5.1) Chloride Level 108mmol/L (98-107) Carbon Dioxide Level 26mmol/L (21-32) Anion Gap 7 (6-14) Blood Urea Nitrogen 5mg/dL (8-26) Creatinine 0.9mg/dL (0.7-1.3) Estimated GFR (Cockcroft-Gault) 119.9 BUN/Creatinine Ratio 6 (6-20) Glucose Level 105mg/dL (70-99) Calcium Level 8.7mg/dL (8.5-10.1) Magnesium Level 2.2mg/dL (1.8-2.4) Total Bilirubin 0.2mg/dL (0.2-1.0) Aspartate Amino Transf (AST/SGOT) 22U/L (15-37) Alanine Aminotransferase (ALT/SGPT) 18U/L (16-63) Alkaline Phosphatase 42U/L (46-116) Total Protein 6.8g/dL (6.4-8.2) Albumin 3.1g/dL (3.4-5.0) Albumin/Globulin Ratio 0.8 (1.0-1.7) Lipase 2044U/L (73-393) Medications Current Medications Sodium Chloride (Iv Sodium Chloride 0.9% 1000ml Bag) 1,000 ml @ 1,000 mls/hr Q1H IV Last administered on 09/14/16 19:59; Start 09/14/16 at 19:35; Stop at 20:34; Status DC Famotidine (Pepcid) 20 mg 1X ONCE IVP Last administered on 09/14/16 19:56; Start 09/14/16 at 19:45; Stop 09/14/16 at 19:46; Status DC Morphine Sulfate 2 mg 1X ONCE IV Last administered on 09/14/16 19:55; Start 09/14/16 at 19:45; Stop 09/14/16 at 19:46; Status DC Morphine Sulfate 4 mg 1X ONCE IV Last administered on 09/14/16 21:36; Start 09/14/16 at 21:30; Stop 09/14/16 at 21:31; Status DC Ondansetron HCl (Zofran) 4 mg 1X ONCE IV Last administered on 09/14/16 21:32 ; Start 09/14/16 at 21:30; Stop 09/14/16 at 21:31; Status DC Ondansetron HCl (Zofran) 4 mg PRN Q8HRS PRN IV NAUSEA/VOMITING Last administered on 09/15/16 16:48; Start 09/14/16 at 21:30; Stop 09/15/16 at 21:29 ; Status DC Morphine Sulfate 4 mg 4 mg PRN Q2HR PRN IV PAIN Last administered on 09/15/16 14:49; Start 09/14/16 at 21:30; Stop 09/15/16 at 21:29; Status DC Sodium Chloride 1,000 ml @ 125 mls/hr Q8H IV Last administered on 09/15/16 05 :48; Start 09/14/16 at 21:30; Stop 09/15/16 at 10:30; Status DC Potassium Chloride 100 ml @ 100 mls/hr Q1H IV Last administered on 09/15/16 12:42; Start 09/15/16 at 08:30; Stop 09/15/16 at 12:29; Status DC Multivitamins/ Minerals/Thiamine HCl/Folic Acid/ Sodium Chloride (Infuvite Adult / Iv Sodium Chloride 0.9% 1000ml Bag) 1,011.2 ml @ 100 mls/ hr DAILY IV Last administered on 09/17/16 10:01; Start 09/15/16 at 11:30; Stop 09/21/16 at 11:29 Lorazepam (Ativan) 2 mg PRN Q1HR PRN IV For CIWA 8-14; Start 09/15/16 at 10:30 Haloperidol Lactate 5 mg 5 mg PRN Q4HRS PRN IVP Hallucinatns,Confusn,Delirium; Start 09/15/16 at 10:30 Sodium Chloride (Iv Sodium Chloride 0.9% 1000ml Bag) 1,000 ml @ 125 mls/hr Q8H IV Last administered on 09/16/16 02:21; Start 09/15/16 at 10:28; Stop at 10:27 Enoxaparin Sodium 40 mg 40 mg Q24H SQ Last administered on 09/17/16 10:03; Start 09/15/16 at 11:00 Sodium Chloride (Iv Sodium Chloride 0.9% 1000ml Bag) 1,000 ml @ 125 mls/hr Q8H IV Last administered on 09/16/16 02:21; Start 09/15/16 at 19:30; Stop at 15:29; Status DC Morphine Sulfate 4 mg PRN Q4HRS PRN IV PAIN Last administered on 09/16/16 00: 00; Start 09/15/16 at 23:45; Stop 09/16/16 at 10:49; Status DC Ondansetron HCl 4 mg 4 mg PRN Q6HRS PRN IV NAUSEA/VOMITING Last administered on 09/16/16 21:03; Start 09/15/16 at 23:45 Potassium Chloride/Sodium Chloride (Iv Sodium Chloride 0.45%) 1,015 ml @ 75 mls /hr [id number] IV Last administered on 09/17/16 10:01; Start 09/16/16 at 11:00 Morphine Sulfate 1 mg 1 mg PRN Q4HRS PRN IV PAIN SCORE 5-7; Start 09/16/16 at 11:00 Magnesium Sulfate/ Dextrose (Magnesium Sulfate PREMIX 2GM) 50 ml @ 25 mls/hr 1X ONCE IV Last administered on 09/16/16 11:30; Start 09/16/16 at 11:30; Stop 09/16/16 at 13:29; Status DC Morphine Sulfate 2 mg PRN Q4HRS PRN IV PAIN SCORE 8/10 Last administered on 01:13; Start 09/16/16 at 11:00 Active Scripts Active No Active Prescriptions or Reported Medications Vitals/I & O Vital Sign - Last 24 Hours 09/16/16 09/16/16 09/16/16 09/16/16 11:20 15:00 19:00 20:00 Temp 97.5 97.6 98.1 97.5 97.6 98.1 Pulse 87 78 86 Resp 16 16 17 B/P 124/82 132/81 135/88 Pulse Ox 95 100 99 O2 Delivery Room Air Room Air Room Air Room Air 09/16/16 09/16/16 09/17/16 09/17/16 21:11 23:00 01:13 01:43 Temp 97.9 97.9 Pulse 74 Resp 20 17 20 20 B/P 129/89 Pulse Ox 99 O2 Delivery Room Air Room Air Room Air Room Air 09/17/16 09/17/16 07:00 08:00 Temp 97.8 97.8 Pulse 75 Resp 17 B/P 120/84 Pulse Ox 100 O2 Delivery Room Air Room Air Intake and Output 09/16/16 09/16/16 09/17/16 15:00 23:00 07:00 Intake Total 840 ml Output Total 900 ml 490 ml Balance -60 ml -490 ml ELVIN MANN MD Sep 17, 2016 10:21
[2016-09-17 11:16] VITALS: BP 119/76
[2016-09-17 15:00] VITALS: BP 126/84
[2016-09-17 19:00] VITALS: BP 118/81
[2016-09-17 23:00] VITALS: BP 119/88
[2016-09-18 03:00] VITALS: BP 121/87
[2016-09-18 07:00] VITALS: BP 120/73
[2016-09-18] MEDS: MVI, ADULT NO.4 WITH VIT K 10 ML, THIAMINE 100 MG, FOLIC ACID 1 MG in IV NORMAL SALINE ... IV SCH ×4 (07:58)
[2016-09-18 10:54] VITALS: BP 114/74
--- NOTE | 2016-09-18 13:15 | PDOC3 ---
Discharge Summary [facility] Date of Admission: Sep 14, 2016 Discharge Date: Sep 18, 2016 Admitting Diagnosis 1. pancreatitis, acute, etoh induced 2. Hypokalemia 3. Hypomagnesimia 4. Abd pain 5. EtOH W/D: 6. h/o etoh pancreatitis Problems: Final Diagnosis Problems Medical Problems: (1) Pancreatitis Status: Acute Brief Hospital Course Mr. 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 HE DRank some ETOH then started to feel abd pain, lipase >5000. abd pain and lipase improved with bowl rest, IVF. dc home dc time 35min General: Alert, Oriented X3, Cooperative Heart: Regular rate Lungs: Clear Abdomen: Normal bowel sounds, No tenderness, Other ( ) Extremities: No edema Skin: No rashes Patient History: Problems: Disposition home CONDITION AT DISCHARGE: Improved Diet regular No Active Prescriptions or Reported Meds Follow Up pcp in 2 weeks ELVIN MANN MD Sep 18, 2016 13:14
== END 2016-09-18 11:46 | disposition home or self-care (01) | DRG 439 ==
LOC: ER 19:05 → 5 SOUTH 21:21
PROVIDERS: ADMIT Internal Medicine; ATTEND Internal Medicine
DX: K85.20 Alcohol induced acute pancreatitis without necrosis or infection (principal); F10.239 Alcohol dependence with withdrawal, unspecified; E87.6 Hypokalemia; K86.1 Other chronic pancreatitis
CPT/HCPCS: 36415; 80048; 80053; 83690; 83735; 85007; 85027; 96374; 96375; 96376; J1650; J2270; J2405; J3480; J7030; J7060; S0028; 99285-25

== ENCOUNTER 2017-04-09 14:09 | Emergency (ER) | payer SELFPAY ==
[~2017-04-09] VITALS: Ht 160 cm; Wt 56.7 kg
[2017-04-09 14:21] VITALS: BP 116/74
--- NOTE | 2017-04-09 14:35 | PHYS DOC ---
Past Medical History Past Medical History: Pancreatitis Past Surgical History: No Surgical History Alcohol Use: Heavy Drug Use: None Adult General Chief Complaint Chief Complaint: HEMORRHOIDS HPI HPI Patient is a 32 year old male presents to the emergency department stating that he has a history of hemorrhoids in the past. Patient states that last night had hemorrhoids they were not is painful as they are at this time. He denies any constipation. Denies any bleeding or drainage coming around the sites. He states that he's used some hemorrhoids with elevator cream however this is made her feel worse and felt like it is larger. Patient denies any straining when having a bowel movement. Denies any fever, chills he denies any abdominal pain or discomfort. Review of Systems Review of Systems Constitutional: Denies fever or chills [] Eyes: Denies change in visual acuity, redness, or eye pain [] HENT: Denies nasal congestion or sore throat [] Respiratory: Denies cough or shortness of breath [] Cardiovascular: No additional information not addressed in HPI [] GI: Denies abdominal pain, nausea, vomiting, bloody stools or diarrhea [] : Denies dysuria or hematuria. Complaint of hemorrhoids Musculoskeletal: Denies back pain or joint pain [] Integument: Denies rash or skin lesions [] Neurologic: Denies headache, focal weakness or sensory changes [] Endocrine: Denies polyuria or polydipsia [] Allergies Allergies Allergies Coded Allergies Type Severity Reaction Last Updated Verified No Known Drug Allergies 03/24/14 No Physical Exam Physical Exam Constitutional: Well developed, well nourished, no acute distress, non-toxic appearance. [] HENT: Normocephalic, atraumatic, bilateral external ears normal, oropharynx moist, no oral exudates, nose normal. [] Eyes: PERRLA, EOMI, conjunctiva normal, no discharge. [] Neck: Normal range of motion, no tenderness, supple, no stridor. [] Cardiovascular:Heart rate regular rhythm, no murmur [] Lungs & Thorax: Bilateral breath sounds clear to auscultation [] Skin: Warm, dry, no erythema, no rash. [] Back: No tenderness] Extremities: No tenderness, no cyanosis, no clubbing, ROM intact, no edema. [] Neurologic: Alert and oriented X 3, normal motor function, normal sensory function, no focal deficits noted. [] Psychologic: Affect normal, judgement normal, mood normal. [] Current Patient Data Vital Signs Vital Signs Date Time Temp Pulse Resp B/P (MAP) Pulse Ox O2 Delivery O2 Flow Rate FiO2 04/09/17 14:21 98.9 92 16 96 Room Air 98.9 EKG EKG [] Radiology/Procedures Radiology/Procedures [] Course & Med Decision Making Course & Med Decision Making Pertinent Labs and Imaging studies reviewed. (See chart for details) Rectal area appears to have a thrombosed hemorrhoid area appears hard tender and red. I was assisted with examination by RN. Patient will be referred to a colorectal surgeon at [facility] as the patient states he does not have insurance. Recommended warm sitz baths. Patient will be provided with hydrocodone for severe pain and discomfort. Recommended Colace and MiraLAX to help promote bowel movements. Patient was also encouraged to use ibuprofen or Tylenol [id number]. Patient will be discharged home in stable condition signs and symptoms to return back to emergency department as been provided. All questions and concerns have been answered at the patient's bedside. Patient will be provided with hydrocodone for severe pain and discomfort in which she was instructed will cause drowsiness as well as constipation. Recommended him not to be driving or doing anything that requires him to be alert and oriented. Also highly recommended Colace and MiraLAX as mentioned above. Dragon Disclaimer Dragon Disclaimer This electronic medical record was generated, in whole or in part, using a voice recognition dictation system. Departure Departure Impression: Primary Impression: Thrombosed hemorrhoids Disposition: 01 HOME, SELF-CARE Condition: STABLE Referrals: NO PCP (PCP) Patient Instructions: Hemorrhoids, [id number] Additional Instructions: Activity as tolerated. Medications as prescribed. Hydrocodone will cause drowsiness do not take any be alert and oriented. This medication will also cause constipation so make sure you take the Colace and MiraLAX. Follow-up with colorectal physician as listed below. Return back to emergency prior signs symptoms of become worse. Maia Mejia MD Scripts Hydrocodone/Apap 5-325 (NORCO 5-325 TABLET) 1 Each Tablet 1 TAB PO PRN Q6HRS Y for PAIN, #15 TAB 0 Refills Prov: JOCE OCAMPO [employer] 04/09/17 JOCE OCAMPO APRN Apr 09, 2017 14:35
[2017-04-09] MEDS ORDERED: HYDR-971 PO (14:55)
== END 2017-04-09 15:00 | disposition home or self-care (01) ==
LOC: ER 14:09
DX: K64.5 Perianal venous thrombosis (principal)
CPT/HCPCS: 99283

== ENCOUNTER 2017-08-01 19:00 | Emergency (ER) | payer SELFPAY ==
[~2017-08-01] VITALS: Ht 160 cm; Wt 59.0 kg
[2017-08-01 19:00] VITALS: BP 133/87
[~2017-08-01 19:00] MED LIST: HYDR-971 PO
--- NOTE | 2017-08-01 19:11 | PHYS DOC ---
Past Medical History Past Medical History: Pancreatitis Past Surgical History: No Surgical History Alcohol Use: Heavy Drug Use: None Adult General Chief Complaint Chief Complaint: HAND PROBLEM HPI HPI Patient is a 32 year old male presents the ED complaining of right hand injury times one week ago. Patient states he got mad and punched a wall. Describes the pain as sharp. Rates the pain as 7/10. Denies wrist pain, laceration, head/neck injury, nausea/vomiting, weakness, dizziness, chest pain or shortness of breath. Review of Systems Review of Systems Constitutional: Denies fever or chills [] Eyes: Denies change in visual acuity, redness, or eye pain [] HENT: Denies nasal congestion or sore throat [] Respiratory: Denies cough or shortness of breath [] Cardiovascular: No additional information not addressed in HPI [] GI: Denies abdominal pain, nausea, vomiting, bloody stools or diarrhea [] : Denies dysuria or hematuria [] Musculoskeletal: Complains of right hand injury. Denies back pain. [] Integument: Denies rash or skin lesions [] Neurologic: Denies headache, focal weakness or sensory changes [] Endocrine: Denies polyuria or polydipsia [] All other systems were reviewed and found to be within normal limits, except as documented in this note. Allergies Allergies Allergies Coded Allergies Type Severity Reaction Last Updated Verified No Known Drug Allergies 03/24/14 No Physical Exam Physical Exam Constitutional: Well developed, well nourished, no acute distress, non-toxic appearance. [] HENT: Normocephalic, atraumatic, oropharynx moist Skin: Warm, dry, no erythema, no rash. [] Back: No tenderness, no CVA tenderness. [] Extremities: MILD RIGHT 5TH FINGER TENDERNESS, NO SWELLING OR OVERLYING SKIN CHANGES. NO SNUFFBOX TENDERNESS. no cyanosis, no clubbing, ROM intact, no edema. [] Neurologic: Alert and oriented X 3, normal motor function, normal sensory function, no focal deficits noted. [] Psychologic: Affect normal, judgement normal, mood normal. [] Current Patient Data Vital Signs Vital Signs Date Time Temp Pulse Resp B/P (MAP) Pulse Ox O2 Delivery O2 Flow Rate FiO2 08/01/17 19:00 98.4 80 16 100 Room Air 98.4 EKG EKG [] Radiology/Procedures Radiology/Procedures [] PROCEDURE: HAND RIGHT 3V 3 views right hand 08/01/2017 Clinical indication: Right hand pain status post injury. Comparison: None. Findings: There is a transverse fracture of the fifth metacarpal neck with impaction and palmar angulation of the distal fracture fragment. No evidence of intra-articular extension. There is soft tissue swelling at the ulnar aspect of the hand. Joint spaces are maintained. Impression: Fifth metacarpal neck fracture with distal palmar angulation. Course & Med Decision Making Course & Med Decision Making Pertinent Labs and Imaging studies reviewed. (See chart for details) []Discussed imaging findings with patient. Patient's pain improved. Ulnar gutter splint placed. Neurovascular intact post placement. Discussed follow-up with hand surgeon early next week. Provided contact information/education. Discussed reasons to return to the ED. Patient understands and agrees with plan. Dragon Disclaimer Dragon Disclaimer This electronic medical record was generated, in whole or in part, using a voice recognition dictation system. Departure Departure Impression: Primary Impression: Boxers fracture Disposition: 01 HOME, SELF-CARE Condition: IMPROVED Referrals: NO PCP (PCP) KRISTINA RAMOS MD Patient Instructions: Boxer's Fracture Additional Instructions: HAND SURGEON: DR. SOHA Lopez Tramadol Hcl (TRAMADOL HCL) 50 Mg Tablet 1 TAB PO PRN Q6HRS, #12 TAB Prov: GINGER DAUGHERTY 08/01/17 GINGER DAUGHERTY Aug 01, 2017 19:11
[2017-08-01] MEDS ORDERED: TRAM50TA PO (19:42)
--- NOTE | 2017-08-02 08:15 | RAD ---
3 views right hand 08/01/2017 Clinical indication: Right hand pain status post injury. Comparison: None. Findings: There is a transverse fracture of the fifth metacarpal neck with impaction and palmar angulation of the distal fracture fragment. No evidence of intra-articular extension. There is soft tissue swelling at the ulnar aspect of the hand. Joint spaces are maintained. Impression: Fifth metacarpal neck fracture with distal palmar angulation.
== END 2017-08-01 20:15 | disposition home or self-care (01) ==
LOC: ER 19:00
DX: S62.336A Displaced fracture of neck of fifth metacarpal bone, right hand, initial encounter for closed fracture (principal); F10.20 Alcohol dependence, uncomplicated; Y33.XXXA Other specified events, undetermined intent, initial encounter; Y93.89 Activity, other specified; Y92.89 Other specified places as the place of occurrence of the external cause; Y99.8 Other external cause status
CPT/HCPCS: 29125; 73130; 99284-25

== ENCOUNTER 2017-09-29 06:47 | Inpatient (IN) | payer SELFPAY ==
[2017-09-29 07:21] LABS: BASO % 0 % (0-3); EOS % 0 % (0-3); HEMATOCRIT 46.4 % (39.0-53.0); HEMOGLOBIN 15.4 g/dL (13.0-17.5); LYMPH # 0.5 x10^3/uL (1.0-4.8); LYMPH % 4 % (24-48); MEAN CORPUSCULAR HEMOGLOBIN 28 pg (25-35); MEAN CORPUSCULAR HGB CONC 33 g/dL (31-37); MEAN CORPUSCULAR VOLUME 85 fL (79-100); MONO # 0.6 x10^3/uL (0.0-1.1); MONO % 4 % (0-9); NEUT # 12.4 x10^3uL (1.8-7.7); NEUT % 92 % (31-73); PLATELET COUNT 196 x10^3/uL (140-400); RED BLOOD COUNT 5.48 x10^6/uL (4.30-5.70); RED CELL DISTRIBUTION WIDTH 16.8 % (11.5-14.5); WHITE BLOOD COUNT 13.5 x10^3/uL (4.0-11.0)
[2017-09-29] MEDS: IV NORMAL SALINE 1000ML BAG 1,000 ML IV ×3 (07:22→16:43)
[2017-09-29] MEDS: MORPHINE SULFATE 10 MG/ML VIAL. IV (07:24)
[2017-09-29 07:25] LABS: ANION GAP 10 (6-14); BLOOD UREA NITROGEN 15 mg/dL (8-26); BUN/CREATININE RATIO 15 (6-20); CALCIUM 9.2 mg/dL (8.5-10.1); CARBON DIOXIDE 29 mmol/L (21-32); CHLORIDE 103 mmol/L (98-107); GFR 105.5; GLUCOSE 118 mg/dL (70-99); POTASSIUM 3.9 mmol/L (3.5-5.1); SODIUM 142 mmol/L (136-145)
[2017-09-29 07:28] LABS: ADD MAN DIFF? YES
[2017-09-29 07:31] LABS: ALK PHOS 50 U/L (46-116); ALT (SGPT) 26 U/L (16-63); AST (SGOT) 31 U/L (15-37); LIPASE 856 U/L (73-393); TOTAL BILIRUBIN 0.5 mg/dL (0.2-1.0); TOTAL PROTEIN 7.9 g/dL (6.4-8.2)
[2017-09-29] MEDS: ONDANSETRON PF 4 MG/2 ML VIAL. IV ×2 (07:45→09:03)
[2017-09-29 08:05] LABS: BILIRUBIN,URINE NEGATIVE (NEG); CLARITY,URINE CLEAR; COLOR,URINE YELLOW; GLUCOSE,URINE NEGATIVE (NEG); NITRITE,URINE NEGATIVE (NEG); PROTEIN,URINE NEGATIVE (NEG-TRACE); UROBILINOGEN,URINE 0.2 mg/dL (0.2 mg/dL)
[2017-09-29 08:08] LABS: BACTERIA,URINE FEW /HPF (0-FEW); RBC,URINE 0 /HPF (0-2)
[2017-09-29] MEDS ORDERED: diphenhydrAMINE 50 MG/ML VIAL IVP (09:15)
[2017-09-29] MEDS ORDERED: HALOPERIDOL LACTATE 5 MG/ML VIAL. IVP (09:15)
[2017-09-29] MEDS: fentaNYL PF VIAL 100 MCG/2 ML VIAL IV ×6 (09:24→21:42)
[2017-09-29 09:27] LABS: BARBITURATES NEG (NEG); BENZODIAZEPINES NEG (NEG); CANNABINOIDS NEG (NEG); COCAINE NEG (NEG); METHADONE NEG (NEG); OPIATES POS (NEG); PHENCYCLIDINE POS (NEG)
[2017-09-29 09:28] LABS: AMPHETAMINE/METHAMPHETAMINE NEG (NEG); ETHANOL, URINE NEG (NEG)
[2017-09-29 09:35] LABS: DIRECT BILIRUBIN 0.1 mg/dL (0.0-0.2)
[2017-09-29 10:37] LABS: % BANDS 1 % (0-9); % LYMPHS 7 % (24-48); % MONOS 4 % (0-10); % SEGS 88 % (35-66)
[2017-09-29 10:38] LABS: PLT ESTIMATE ADEQUATE (ADEQUATE)
[2017-09-29] MEDS: MULTIVIT INFUSN,ADULT 4,VIT K 10 ML, THIAMINE 100 MG, FOLIC ACID 1 MG in IV NORMAL SALI... IV (17:12)
[2017-09-30] MEDS: fentaNYL PF VIAL 100 MCG/2 ML VIAL IV ×6 (00:07→18:31)
[2017-09-30] MEDS: IV NORMAL SALINE 1000ML BAG 1,000 ML IV (02:14)
[2017-09-30] MEDS: ONDANSETRON PF 4 MG/2 ML VIAL. IV (02:19)
[2017-09-30 04:22] LABS: ADD MAN DIFF? NO
[2017-09-30 04:34] LABS: BASO % 0 % (0-3); EOS % 1 % (0-3); HEMATOCRIT 41.5 % (39.0-53.0); HEMOGLOBIN 13.8 g/dL (13.0-17.5); LYMPH # 0.6 x10^3/uL (1.0-4.8); LYMPH % 7 % (24-48); MEAN CORPUSCULAR HEMOGLOBIN 28 pg (25-35); MEAN CORPUSCULAR HGB CONC 33 g/dL (31-37); MEAN CORPUSCULAR VOLUME 86 fL (79-100); MONO # 0.8 x10^3/uL (0.0-1.1); MONO % 10 % (0-9); NEUT # 7.3 x10^3uL (1.8-7.7); NEUT % 83 % (31-73); PLATELET COUNT 155 x10^3/uL (140-400); RED BLOOD COUNT 4.85 x10^6/uL (4.30-5.70); RED CELL DISTRIBUTION WIDTH 16.8 % (11.5-14.5); WHITE BLOOD COUNT 8.8 x10^3/uL (4.0-11.0)
[2017-09-30 05:02] LABS: ALBUMIN 3.4 g/dL (3.4-5.0); ALBUMIN/GLOBULIN RATIO 1.1 (1.0-1.7); ALK PHOS 40 U/L (46-116); ALT (SGPT) 20 U/L (16-63); ANION GAP 9 (6-14); AST (SGOT) 23 U/L (15-37); BLOOD UREA NITROGEN 8 mg/dL (8-26); BUN/CREATININE RATIO 10 (6-20); CALCIUM 8.7 mg/dL (8.5-10.1); CARBON DIOXIDE 27 mmol/L (21-32); CHLORIDE 105 mmol/L (98-107); CREATININE 0.8 mg/dL (0.7-1.3); GFR 136.4; GLUCOSE 92 mg/dL (70-99); POTASSIUM 3.6 mmol/L (3.5-5.1); SODIUM 141 mmol/L (136-145); TOTAL BILIRUBIN 0.5 mg/dL (0.2-1.0); TOTAL PROTEIN 6.6 g/dL (6.4-8.2)
[2017-09-30] MEDS: MULTIVIT INFUSN,ADULT 4,VIT K 10 ML, THIAMINE 100 MG, FOLIC ACID 1 MG in IV NORMAL SALI... IV (09:14)
[2017-09-30] MEDS: LORazepam 1 MG TABLET PO (09:14)
[2017-09-30 13:09] LABS: LIPASE 4613 U/L (73-393)
[2017-10-01] MEDS: ONDANSETRON PF 4 MG/2 ML VIAL. IV ×2 (01:42→20:14)
[2017-10-01] MEDS: fentaNYL PF VIAL 100 MCG/2 ML VIAL IV ×4 (01:45→19:30)
[2017-10-01 06:19] LABS: ADD MAN DIFF? NO
[2017-10-01 06:48] LABS: BASO % 0 % (0-3); EOS # 0.2 x10^3/uL (0.0-0.7); EOS % 2 % (0-3); HEMATOCRIT 39.5 % (39.0-53.0); HEMOGLOBIN 13.1 g/dL (13.0-17.5); LYMPH # 0.8 x10^3/uL (1.0-4.8); LYMPH % 11 % (24-48); MEAN CORPUSCULAR HEMOGLOBIN 28 pg (25-35); MEAN CORPUSCULAR HGB CONC 33 g/dL (31-37); MEAN CORPUSCULAR VOLUME 85 fL (79-100); MONO # 0.6 x10^3/uL (0.0-1.1); MONO % 9 % (0-9); NEUT # 5.2 x10^3uL (1.8-7.7); NEUT % 77 % (31-73); PLATELET COUNT 149 x10^3/uL (140-400); RED BLOOD COUNT 4.65 x10^6/uL (4.30-5.70); RED CELL DISTRIBUTION WIDTH 16.6 % (11.5-14.5); WHITE BLOOD COUNT 6.8 x10^3/uL (4.0-11.0)
[2017-10-01 07:01] LABS: ANION GAP 6 (6-14); BLOOD UREA NITROGEN 5 mg/dL (8-26); CALCIUM 8.7 mg/dL (8.5-10.1); CARBON DIOXIDE 30 mmol/L (21-32); CHLORIDE 102 mmol/L (98-107); CREATININE 0.8 mg/dL (0.7-1.3); GFR 136.4; GLUCOSE 110 mg/dL (70-99); POTASSIUM 3.3 mmol/L (3.5-5.1); SODIUM 138 mmol/L (136-145)
[2017-10-01] MEDS: MULTIVIT INFUSN,ADULT 4,VIT K 10 ML, THIAMINE 100 MG, FOLIC ACID 1 MG in IV NORMAL SALI... IV (09:44)
[2017-10-01 11:17] LABS: LIPASE 2670 U/L (73-393)
[2017-10-01] MEDS: POTASSIUM CHLORIDE 20 MEQ TABLET.ER. PO (11:49)
[2017-10-01] MEDS ORDERED: CONTRAST GIVEN MC (14:30)
[2017-10-01] MEDS: IOHEXOL 300 MG/ML 100ML VIAL. IV (14:36)
[2017-10-01] MEDS: POLYETHYLENE GLYCOL 3350 17 GM PACKET. PO (14:59)
[2017-10-01] MEDS: LORazepam 1 MG TABLET PO (20:14)
[2017-10-02] MEDS: fentaNYL PF VIAL 100 MCG/2 ML VIAL IV ×6 (03:04→21:53)
[2017-10-02 06:22] LABS: ADD MAN DIFF? NO
[2017-10-02 06:48] LABS: ALBUMIN 3.2 g/dL (3.4-5.0); ALK PHOS 42 U/L (46-116); ALT (SGPT) 18 U/L (16-63); ANION GAP 7 (6-14); AST (SGOT) 22 U/L (15-37); BLOOD UREA NITROGEN 5 mg/dL (8-26); CARBON DIOXIDE 31 mmol/L (21-32); CHLORIDE 104 mmol/L (98-107); CREATININE 0.9 mg/dL (0.7-1.3); DIRECT BILIRUBIN 0.1 mg/dL (0.0-0.2); GFR 119.1; GLUCOSE 110 mg/dL (70-99); POTASSIUM 3.2 mmol/L (3.5-5.1); SODIUM 142 mmol/L (136-145); TOTAL BILIRUBIN 0.3 mg/dL (0.2-1.0); TOTAL PROTEIN 7.1 g/dL (6.4-8.2)
[2017-10-02 06:50] LABS: LIPASE 1749 U/L (73-393)
[2017-10-02 06:51] LABS: BASO % 1 % (0-3); EOS # 0.1 x10^3/uL (0.0-0.7); EOS % 4 % (0-3); HEMATOCRIT 41.7 % (39.0-53.0); LYMPH # 0.9 x10^3/uL (1.0-4.8); LYMPH % 21 % (24-48); MEAN CORPUSCULAR HEMOGLOBIN 28 pg (25-35); MEAN CORPUSCULAR HGB CONC 34 g/dL (31-37); MEAN CORPUSCULAR VOLUME 85 fL (79-100); MONO # 0.5 x10^3/uL (0.0-1.1); MONO % 11 % (0-9); NEUT # 2.7 x10^3uL (1.8-7.7); NEUT % 64 % (31-73); PLATELET COUNT 143 x10^3/uL (140-400); RED BLOOD COUNT 4.91 x10^6/uL (4.30-5.70); RED CELL DISTRIBUTION WIDTH 16.3 % (11.5-14.5); WHITE BLOOD COUNT 4.3 x10^3/uL (4.0-11.0)
[2017-10-02] MEDS: POLYETHYLENE GLYCOL 3350 17 GM PACKET. PO (08:39)
[2017-10-02] MEDS: MULTIVIT INFUSN,ADULT 4,VIT K 10 ML, THIAMINE 100 MG, FOLIC ACID 1 MG in IV NORMAL SALI... IV (08:39)
[2017-10-02] MEDS: ONDANSETRON PF 4 MG/2 ML VIAL. IV ×2 (09:17→19:24)
[2017-10-02 18:14] LABS: HCV ANTIBODY <0.1 s/co ratio (0.0-0.9); HEP A IGM ABDY Negative (Negative); HEP B SURFACE AG Negative (Negative)
[2017-10-03] MEDS: fentaNYL PF VIAL 100 MCG/2 ML VIAL IV ×9 (01:10→23:48)
[2017-10-03 06:04] LABS: ADD MAN DIFF? NO; BASO % 1 % (0-3); EOS # 0.1 x10^3/uL (0.0-0.7); EOS % 2 % (0-3); HEMATOCRIT 40.7 % (39.0-53.0); HEMOGLOBIN 13.7 g/dL (13.0-17.5); LYMPH # 0.9 x10^3/uL (1.0-4.8); LYMPH % 17 % (24-48); MEAN CORPUSCULAR HEMOGLOBIN 28 pg (25-35); MEAN CORPUSCULAR HGB CONC 34 g/dL (31-37); MEAN CORPUSCULAR VOLUME 83 fL (79-100); MONO # 0.5 x10^3/uL (0.0-1.1); MONO % 9 % (0-9); NEUT # 3.9 x10^3uL (1.8-7.7); NEUT % 71 % (31-73); PLATELET COUNT 151 x10^3/uL (140-400); RED BLOOD COUNT 4.91 x10^6/uL (4.30-5.70); RED CELL DISTRIBUTION WIDTH 16.2 % (11.5-14.5); WHITE BLOOD COUNT 5.5 x10^3/uL (4.0-11.0)
[2017-10-03] MEDS: ONDANSETRON PF 4 MG/2 ML VIAL. IV ×2 (06:16→20:31)
[2017-10-03 06:33] LABS: ANION GAP 7 (6-14); BLOOD UREA NITROGEN 5 mg/dL (8-26); CARBON DIOXIDE 32 mmol/L (21-32); CHLORIDE 104 mmol/L (98-107); CREATININE 0.8 mg/dL (0.7-1.3); GFR 136.4; GLUCOSE 95 mg/dL (70-99); POTASSIUM 3.6 mmol/L (3.5-5.1); SODIUM 143 mmol/L (136-145)
[2017-10-03 08:30] LABS: LIPASE 1745 U/L (73-393)
[2017-10-03] MEDS: POLYETHYLENE GLYCOL 3350 17 GM PACKET. PO ×3 (10:02→20:31)
[2017-10-03] MEDS: BISACODYL 5 MG TABLET.DR. PO (11:30)
[2017-10-03] MEDS: MULTIVIT INFUSN,ADULT 4,VIT K 10 ML, THIAMINE 100 MG, FOLIC ACID 1 MG in IV NORMAL SALI... IV (11:34)
[2017-10-04] MEDS: fentaNYL PF VIAL 100 MCG/2 ML VIAL IV ×4 (02:49→20:25)
[2017-10-04 04:29] LABS: ADD MAN DIFF? NO
[2017-10-04 04:36] LABS: BASO % 1 % (0-3); EOS # 0.1 x10^3/uL (0.0-0.7); EOS % 3 % (0-3); HEMATOCRIT 40.9 % (39.0-53.0); HEMOGLOBIN 13.6 g/dL (13.0-17.5); LYMPH % 21 % (24-48); MEAN CORPUSCULAR HEMOGLOBIN 28 pg (25-35); MEAN CORPUSCULAR HGB CONC 33 g/dL (31-37); MEAN CORPUSCULAR VOLUME 85 fL (79-100); MONO # 0.5 x10^3/uL (0.0-1.1); MONO % 10 % (0-9); NEUT # 3.1 x10^3uL (1.8-7.7); NEUT % 66 % (31-73); PLATELET COUNT 178 x10^3/uL (140-400); RED BLOOD COUNT 4.83 x10^6/uL (4.30-5.70); RED CELL DISTRIBUTION WIDTH 16.4 % (11.5-14.5); WHITE BLOOD COUNT 4.7 x10^3/uL (4.0-11.0)
[2017-10-04 05:24] LABS: ANION GAP 7 (6-14); BLOOD UREA NITROGEN 6 mg/dL (8-26); CALCIUM 9.6 mg/dL (8.5-10.1); CARBON DIOXIDE 29 mmol/L (21-32); CHLORIDE 104 mmol/L (98-107); CREATININE 0.8 mg/dL (0.7-1.3); GFR 136.4; GLUCOSE 115 mg/dL (70-99); POTASSIUM 4.3 mmol/L (3.5-5.1); SODIUM 140 mmol/L (136-145)
[2017-10-04] MEDS: ONDANSETRON PF 4 MG/2 ML VIAL. IV (05:25)
[2017-10-04 05:47] LABS: LIPASE 2971 U/L (73-393)
[2017-10-04] MEDS: MULTIVITAMIN with MINERAL TABLET. PO (09:40)
[2017-10-04] MEDS: BISACODYL 5 MG TABLET.DR. PO (09:41)
[2017-10-04] MEDS: POLYETHYLENE GLYCOL 3350 17 GM PACKET. PO ×2 (09:41→20:28)
[2017-10-04] MEDS: FOLIC ACID 1 MG TABLET. PO (09:41)
[2017-10-04] MEDS: oxyCODONE/APAP 5/325 1 TAB TABLET PO ×2 (09:41→22:34)
[2017-10-04] MEDS: MAGNESIUM HYDROXIDE 2,400 MG/30 ML ORAL.SUSP. PO (17:32)
[2017-10-05] MEDS: fentaNYL PF VIAL 100 MCG/2 ML VIAL IV ×2 (04:18→08:41)
[2017-10-05 05:51] LABS: LIPASE 2013 U/L (73-393)
[2017-10-05] MEDS: oxyCODONE/APAP 5/325 1 TAB TABLET PO (07:06)
[2017-10-05] MEDS: MULTIVITAMIN with MINERAL TABLET. PO (08:41)
[2017-10-05] MEDS: FOLIC ACID 1 MG TABLET. PO (08:41)
[2017-10-05] MEDS: POLYETHYLENE GLYCOL 3350 17 GM PACKET. PO (08:41)
== END 2017-10-05 11:59 | disposition home or self-care (01) | DRG 439 ==
LOC: ER 06:47 → 5 SOUTH 08:42
DX: K85.90 Acute pancreatitis without necrosis or infection, unspecified (principal); R18.8 Other ascites; F10.20 Alcohol dependence, uncomplicated; K86.0 Alcohol-induced chronic pancreatitis; E87.6 Hypokalemia; F17.200 Nicotine dependence, unspecified, uncomplicated; K59.00 Constipation, unspecified; K64.5 Perianal venous thrombosis
CPT/HCPCS: 36415; 74018; 74177; 80048; 80053; 80074; 80076; 80307; 81001; 82248; 83690; 85007; 85025; 96361; 96374; 96375; 99285; 99285-25; J2270; J2405; J3010; J7030; Q9967

== ENCOUNTER 2018-03-22 00:05 | Inpatient (IN) | payer SELFPAY ==
[2018-03-22] MEDS: IV NORMAL SALINE 1000ML BAG 1,000 ML IV ×5 (00:41→19:15)
[2018-03-22] MEDS: PANTOPRAZOLE IV PUSH 40 MG VIAL. IVP (00:41)
[2018-03-22] MEDS: MORPHINE SULFATE 10 MG/ML VIAL. IV (00:42)
[2018-03-22 00:43] LABS: BASO % 0 % (0-3); EOS % 0 % (0-3); HEMATOCRIT 47.2 % (39.0-53.0); HEMOGLOBIN 16.1 g/dL (13.0-17.5); LYMPH # 0.7 x10^3/uL (1.0-4.8); LYMPH % 7 % (24-48); MEAN CORPUSCULAR HEMOGLOBIN 29 pg (25-35); MEAN CORPUSCULAR HGB CONC 34 g/dL (31-37); MEAN CORPUSCULAR VOLUME 85 fL (79-100); MONO # 0.5 x10^3/uL (0.0-1.1); MONO % 5 % (0-9); NEUT # 9.1 x10^3uL (1.8-7.7); NEUT % 88 % (31-73); PLATELET COUNT 178 x10^3/uL (140-400); RED BLOOD COUNT 5.53 x10^6/uL (4.30-5.70); RED CELL DISTRIBUTION WIDTH 16.5 % (11.5-14.5); WHITE BLOOD COUNT 10.4 x10^3/uL (4.0-11.0)
[2018-03-22 00:56] LABS: ADD MAN DIFF? YES
[2018-03-22] MEDS ORDERED: CONTRAST GIVEN. MC (01:00)
[2018-03-22 02:16] LABS: ETHANOL < 10 mg/dL (0-10)
[2018-03-22 02:53] LABS: BILIRUBIN,URINE NEGATIVE (NEG); CLARITY,URINE CLEAR; COLOR,URINE YELLOW; GLUCOSE,URINE NEGATIVE (NEG); NITRITE,URINE NEGATIVE (NEG); PH,URINE 5.5; PROTEIN,URINE NEGATIVE (NEG-TRACE); UROBILINOGEN,URINE 0.2 mg/dL (0.2 mg/dL)
[2018-03-22] MEDS: MORPHINE SULFATE 4 MG/ML DISP.SYRIN. IV (02:55)
[2018-03-22 02:59] LABS: BARBITURATES NEG (NEG); BENZODIAZEPINES NEG (NEG); CANNABINOIDS NEG (NEG); COCAINE NEG (NEG); METHADONE NEG (NEG); OPIATES POS (NEG); PHENCYCLIDINE POS (NEG)
[2018-03-22 03:00] LABS: AMPHETAMINE/METHAMPHETAMINE NEG (NEG); ANION GAP 9 (6-14); BLOOD UREA NITROGEN 10 mg/dL (8-26); BUN/CREATININE RATIO 13 (6-20); CALCIUM 8.5 mg/dL (8.5-10.1); CARBON DIOXIDE 26 mmol/L (21-32); CHLORIDE 106 mmol/L (98-107); CREATININE 0.8 mg/dL (0.7-1.3); ETHANOL, URINE NEG (NEG); GFR 135.6; GLUCOSE 101 mg/dL (70-99); POTASSIUM 3.6 mmol/L (3.5-5.1); SODIUM 141 mmol/L (136-145)
[2018-03-22 03:06] LABS: ALBUMIN 3.1 g/dL (3.4-5.0); ALBUMIN/GLOBULIN RATIO 1.1 (1.0-1.7); ALK PHOS 43 U/L (46-116); ALT (SGPT) 24 U/L (16-63); AST (SGOT) 22 U/L (15-37); TOTAL BILIRUBIN 0.5 mg/dL (0.2-1.0)
[2018-03-22 03:07] LABS: BACTERIA,URINE 0 /HPF (0-FEW); RBC,URINE 0 /HPF (0-2); SQUAMOUS EPITHELIAL CELL,UR OCC /LPF; WBC,URINE OCC /HPF (0-4)
[2018-03-22] MEDS: IOHEXOL 300 MG/ML 100ML VIAL. IV (03:15)
[2018-03-22 03:19] LABS: LIPASE 2212 U/L (73-393)
[2018-03-22] MEDS ORDERED: ONDANSETRON PF 4 MG/2 ML VIAL. IV (03:45)
[2018-03-22 04:26] LABS: % EOS 1 % (0-5); % LYMPHS 13 % (24-48); % MONOS 4 % (0-10); % SEGS 82 % (35-66); PLT ESTIMATE ADEQUATE (ADEQUATE)
[2018-03-22] MEDS: MORPHINE SULFATE 2 MG/ML DISP.SYRIN. IV ×6 (05:55→21:22)
[2018-03-22] MEDS ORDERED: BISACODYL 10 MG SUPP.RECT. PR (14:00)
[2018-03-22] MEDS ORDERED: LORazepam 1 MG TABLET PO (14:00)
[2018-03-22] MEDS: MULTIVIT INFUSN,ADULT 4,VIT K 10 ML, THIAMINE 100 MG, FOLIC ACID 1 MG in IV NORMAL SALI... IV (14:01)
[2018-03-23] MEDS: MORPHINE SULFATE 2 MG/ML DISP.SYRIN. IV ×5 (00:34→22:51)
[2018-03-23 05:49] LABS: ADD MAN DIFF? NO
[2018-03-23 05:53] LABS: BASO % 1 % (0-3); EOS # 0.1 x10^3/uL (0.0-0.7); EOS % 2 % (0-3); HEMATOCRIT 41.8 % (39.0-53.0); LYMPH # 1.2 x10^3/uL (1.0-4.8); LYMPH % 23 % (24-48); MEAN CORPUSCULAR HEMOGLOBIN 29 pg (25-35); MEAN CORPUSCULAR HGB CONC 34 g/dL (31-37); MEAN CORPUSCULAR VOLUME 86 fL (79-100); MONO # 0.4 x10^3/uL (0.0-1.1); MONO % 8 % (0-9); NEUT # 3.5 x10^3uL (1.8-7.7); NEUT % 68 % (31-73); PLATELET COUNT 151 x10^3/uL (140-400); RED BLOOD COUNT 4.85 x10^6/uL (4.30-5.70); RED CELL DISTRIBUTION WIDTH 16.2 % (11.5-14.5); WHITE BLOOD COUNT 5.2 x10^3/uL (4.0-11.0)
[2018-03-23 06:36] LABS: ANION GAP 8 (6-14); BLOOD UREA NITROGEN 4 mg/dL (8-26); CARBON DIOXIDE 27 mmol/L (21-32); CHLORIDE 105 mmol/L (98-107); CREATININE 0.9 mg/dL (0.7-1.3); GFR 118.3; GLUCOSE 95 mg/dL (70-99); POTASSIUM 3.9 mmol/L (3.5-5.1); SODIUM 140 mmol/L (136-145)
[2018-03-24] MEDS: MORPHINE SULFATE 2 MG/ML DISP.SYRIN. IV ×7 (01:07→21:54)
[2018-03-24 05:43] LABS: ADD MAN DIFF? NO
[2018-03-24 05:48] LABS: BASO % 0 % (0-3); EOS # 0.1 x10^3/uL (0.0-0.7); EOS % 2 % (0-3); HEMATOCRIT 42.1 % (39.0-53.0); HEMOGLOBIN 14.3 g/dL (13.0-17.5); LYMPH # 1.1 x10^3/uL (1.0-4.8); LYMPH % 29 % (24-48); MEAN CORPUSCULAR HEMOGLOBIN 29 pg (25-35); MEAN CORPUSCULAR HGB CONC 34 g/dL (31-37); MEAN CORPUSCULAR VOLUME 86 fL (79-100); MONO # 0.4 x10^3/uL (0.0-1.1); MONO % 9 % (0-9); NEUT # 2.2 x10^3uL (1.8-7.7); NEUT % 59 % (31-73); PLATELET COUNT 152 x10^3/uL (140-400); RED CELL DISTRIBUTION WIDTH 16.4 % (11.5-14.5); WHITE BLOOD COUNT 3.8 x10^3/uL (4.0-11.0)
[2018-03-24 06:01] LABS: ANION GAP 6 (6-14); BLOOD UREA NITROGEN 8 mg/dL (8-26); CALCIUM 9.2 mg/dL (8.5-10.1); CARBON DIOXIDE 29 mmol/L (21-32); CHLORIDE 105 mmol/L (98-107); CREATININE 0.9 mg/dL (0.7-1.3); GFR 118.3; GLUCOSE 95 mg/dL (70-99); LIPASE 780 U/L (73-393); POTASSIUM 3.9 mmol/L (3.5-5.1); SODIUM 140 mmol/L (136-145)
[2018-03-25 05:16] LABS: ADD MAN DIFF? NO
[2018-03-25 05:34] LABS: ANION GAP 6 (6-14); BLOOD UREA NITROGEN 6 mg/dL (8-26); CALCIUM 9.1 mg/dL (8.5-10.1); CARBON DIOXIDE 28 mmol/L (21-32); CHLORIDE 105 mmol/L (98-107); CREATININE 0.9 mg/dL (0.7-1.3); GFR 118.3; GLUCOSE 119 mg/dL (70-99); POTASSIUM 3.7 mmol/L (3.5-5.1); SODIUM 139 mmol/L (136-145)
[2018-03-25 06:47] LABS: BASO % 1 % (0-3); EOS # 0.1 x10^3/uL (0.0-0.7); EOS % 2 % (0-3); HEMATOCRIT 43.3 % (39.0-53.0); HEMOGLOBIN 14.7 g/dL (13.0-17.5); LYMPH # 1.1 x10^3/uL (1.0-4.8); LYMPH % 32 % (24-48); MEAN CORPUSCULAR HEMOGLOBIN 29 pg (25-35); MEAN CORPUSCULAR HGB CONC 34 g/dL (31-37); MEAN CORPUSCULAR VOLUME 85 fL (79-100); MONO # 0.3 x10^3/uL (0.0-1.1); MONO % 9 % (0-9); NEUT % 56 % (31-73); PLATELET COUNT 160 x10^3/uL (140-400); RED BLOOD COUNT 5.08 x10^6/uL (4.30-5.70); RED CELL DISTRIBUTION WIDTH 16.2 % (11.5-14.5); WHITE BLOOD COUNT 3.6 x10^3/uL (4.0-11.0)
== END 2018-03-25 13:45 | disposition home or self-care (01) | DRG 440 ==
LOC: ER 00:05 → 5 SOUTH 03:45
DX: K85.20 Alcohol induced acute pancreatitis without necrosis or infection (principal); F16.10 Hallucinogen abuse, uncomplicated; F10.10 Alcohol abuse, uncomplicated; F11.10 Opioid abuse, uncomplicated; Y90.0 Blood alcohol level of less than 20 mg/100 ml; Z81.1 Family history of alcohol abuse and dependence
CPT/HCPCS: 36415; 74177; 80048; 80053; 80307; 81001; 83690; 85007; 85025; 85610; 96365; 96374; 96375; 96376; 99285; 99285-25; C9113; G0480; J2270; J7030; Q9967

== ENCOUNTER 2018-11-27 07:32 | Observation (INO) | payer SELFPAY ==
[~2018-11-27] VITALS: Ht 160 cm; Wt 59.0 kg
[~2018-11-27 07:32] MED LIST changes: +HYDR-3164 PO; -HYDR-971 PO; +TRAM50TA PO
--- NOTE | 2018-11-27 07:46 | PHYS DOC ---
Past Medical History Past Medical History: Alcoholism, Constipation, Pancreatitis Additional Past Medical Histor: finger fx Past Surgical History: No Surgical History Additional Information: non smoker Alcohol Use: Heavy Drug Use: None Adult General Chief Complaint Chief Complaint: ABDOMINAL PAIN HPI HPI 34-year-old male with history of chronic pancreatitis presenting to the emergency department today with epigastric abdominal pain. It is sharp shooting pain that started about 3 days ago. It radiates to the back similar to his previous episodes of pancreatitis. He has stopped eating because he says that's what normally helps. It mildly helped that he still is having the pain. He has not had any vomiting. He denies fevers or chills. Review of systems is negative for chest pain shortness of breath nausea vomiting. All other review of systems is negative unless otherwise noted in history of present illness. ED course: 33-year-old male presenting to the emergency department today with epigastric abdominal pain. CBC unremarkable. Chemistry panel shows lipase of the upper limits of normal. Otherwise unremarkable. Urinalysis negative. Patient clinically seems to be more acute on chronic pancreatitis. We will place the patient nothing by mouth and admit the patient for IV fluids and pain medication. Also we will seek GI consultation. Basic bridge orders placed. I spoke with Dr. Molina who accepts the patient for admission. Review of Systems Review of Systems SEE ABOVE. Current Medications Current Medications Current Medications Medications (Trade) Dose Ordered Sig/Estuardo Start Time Stop Time Status Last Admin Dose Admin Hydromorphone HCl (Dilaudid) 0.5 mg PRN Q1HR PRN 11/27/18 08:00 11/28/18 07:59 11/27/18 08:07 0.5 MG Iohexol (Omnipaque 300 Mg/ml) 75 ml 1X ONCE 11/27/18 10:00 11/27/18 10:01 DC Ondansetron HCl (Zofran) 4 mg 1X ONCE 11/27/18 08:00 11/27/18 08:01 DC 11/27/18 08:07 4 MG Sodium Chloride 1,000 ml @ 1,000 mls/hr Q1H 11/27/18 07:50 11/27/18 08:49 DC 11/27/18 08:07 1,000 MLS/HR Allergies Allergies Allergies Coded Allergies Type Severity Reaction Last Updated Verified No Known Drug Allergies 03/24/14 No Physical Exam Physical Exam SEE ABOVE Constitutional: Well developed, well nourished, no acute distress, non-toxic appearance. [] HENT: Normocephalic, atraumatic, bilateral external ears normal, oropharynx moist, no oral exudates, nose normal. [] Eyes: PERRLA, EOMI, conjunctiva normal, no discharge. [] Neck: Normal range of motion, no tenderness, supple, no stridor. [] Cardiovascular:Heart rate regular rhythm, no murmur [] Lungs & Thorax: Bilateral breath sounds clear to auscultation [] Abdomen: Bowel sounds normal, soft, no tenderness, no masses, no pulsatile masses. [] Skin: Warm, dry, no erythema, no rash. [] Back: No tenderness, no CVA tenderness. [] Extremities: No tenderness, no cyanosis, no clubbing, ROM intact, no edema. [] Neurologic: Alert and oriented X 3, normal motor function, normal sensory function, no focal deficits noted. [] Psychologic: Affect normal, judgement normal, mood normal. [] Current Patient Data Vital Signs Vital Signs Date Time Temp Pulse Resp B/P (MAP) Pulse Ox O2 Delivery O2 Flow Rate FiO2 11/27/18 08:44 74 118/81 (93) 97 Room Air 11/27/18 08:07 16 11/27/18 07:55 98.6 98.6 Lab Values Laboratory Tests Test 11/27/18 08:00 White Blood Count 6.4 x10^3/uL (4.0-11.0) Red Blood Count 5.84 x10^6/uL (4.30-5.70) H Hemoglobin 16.6 g/dL (13.0-17.5) Hematocrit 50.1 % (39.0-53.0) Mean Corpuscular Volume 86 fL (79-100) Mean Corpuscular Hemoglobin 28 pg (25-35) Mean Corpuscular Hemoglobin Concent 33 g/dL (31-37) Red Cell Distribution Width 16.0 % (11.5-14.5) H Platelet Count 210 x10^3/uL (140-400) Neutrophils (%) (Auto) 69 % (31-73) Lymphocytes (%) (Auto) 23 % (24-48) L Monocytes (%) (Auto) 7 % (0-9) Eosinophils (%) (Auto) 1 % (0-3) Basophils (%) (Auto) 0 % (0-3) Neutrophils # (Auto) 4.4 x10^3uL (1.8-7.7) Lymphocytes # (Auto) 1.5 x10^3/uL (1.0-4.8) Monocytes # (Auto) 0.4 x10^3/uL (0.0-1.1) Eosinophils # (Auto) 0.1 x10^3/uL (0.0-0.7) Basophils # (Auto) 0.0 x10^3/uL (0.0-0.2) Sodium Level 139 mmol/L (136-145) Potassium Level 3.7 mmol/L (3.5-5.1) Chloride Level 102 mmol/L (98-107) Carbon Dioxide Level 24 mmol/L (21-32) Anion Gap 13 (6-14) Blood Urea Nitrogen 7 mg/dL (8-26) L Creatinine 0.9 mg/dL (0.7-1.3) Estimated GFR (Cockcroft-Gault) 118.3 Glucose Level 104 mg/dL (70-99) H Calcium Level 9.4 mg/dL (8.5-10.1) Total Bilirubin 0.3 mg/dL (0.2-1.0) Direct Bilirubin 0.1 mg/dL (0.0-0.2) Aspartate Amino Transferase (AST) 29 U/L (15-37) Alanine Aminotransferase (ALT) 29 U/L (16-63) Alkaline Phosphatase 51 U/L (46-116) Total Protein 7.8 g/dL (6.4-8.2) Albumin 4.0 g/dL (3.4-5.0) Lipase 380 U/L (73-393) Laboratory Tests 11/27/18 08:00 Laboratory Tests 11/27/18 08:00 EKG EKG [] Radiology/Procedures Radiology/Procedures [] Course & Med Decision Making Course & Med Decision Making Pertinent Labs and Imaging studies reviewed. (See chart for details) [] Dragon Disclaimer Dragon Disclaimer This electronic medical record was generated, in whole or in part, using a voice recognition dictation system. Departure Departure Impression: Primary Impression: Pancreatitis Disposition: ADMITTED INPATIENT Admitting Physician: Taylor Molina Condition: STABLE Referrals: NO PCP (PCP) Scripts No Active Prescriptions or Reported Meds YONG HURT MD Nov 27, 2018 07:46
[2018-11-27] MEDS ORDERED: IV NORMAL SALINE 1000ML BAG 1,000 ML IV SCH (07:50)
[2018-11-27] MEDS ORDERED: HYDROmorphone 2 MG/ML VIAL IV/SQ PRN (08:00)
[2018-11-27] MEDS ORDERED: ONDANSETRON PF 4 MG/2 ML VIAL. IV ONE (08:00)
[2018-11-27 08:11] LABS: BASO % 0 % (0-3); EOS # 0.1 x10^3/uL (0.0-0.7); EOS % 1 % (0-3); HEMATOCRIT 50.1 % (39.0-53.0); HEMOGLOBIN 16.6 g/dL (13.0-17.5); LYMPH # 1.5 x10^3/uL (1.0-4.8); LYMPH % 23 % (24-48); MEAN CORPUSCULAR HEMOGLOBIN 28 pg (25-35); MEAN CORPUSCULAR HGB CONC 33 g/dL (31-37); MEAN CORPUSCULAR VOLUME 86 fL (79-100); MONO # 0.4 x10^3/uL (0.0-1.1); MONO % 7 % (0-9); NEUT # 4.4 x10^3uL (1.8-7.7); NEUT % 69 % (31-73); PLATELET COUNT 210 x10^3/uL (140-400); RED BLOOD COUNT 5.84 x10^6/uL (4.30-5.70); WHITE BLOOD COUNT 6.4 x10^3/uL (4.0-11.0)
[2018-11-27 08:23] LABS: CALCIUM 9.4 mg/dL (8.5-10.1); CREATININE 0.9 mg/dL (0.7-1.3); GFR 118.3; POTASSIUM 3.7 mmol/L (3.5-5.1)
[2018-11-27 08:29] LABS: DIRECT BILIRUBIN 0.1 mg/dL (0.0-0.2); TOTAL BILIRUBIN 0.3 mg/dL (0.2-1.0); TOTAL PROTEIN 7.8 g/dL (6.4-8.2)
[2018-11-27] MEDS ORDERED: IOHEXOL 300 MG/ML 100ML VIAL. IV ONE (10:00)
--- NOTE | 2018-11-27 10:41 | RAD ---
PQRS Compliance Statement: One or more of the following individualized dose reduction techniques were utilized for this examination: 1. Automated exposure control 2. Adjustment of the mA and/or kV according to patient size 3. Use of iterative reconstruction technique CT abdomen/pelvis with contrast 11/27/2018 9:34 AM INDICATION: Abdominal pain COMPARISON: CT abdomen/pelvis March 22, 2018 TECHNIQUE: Multiple axial CT images of the abdomen and pelvis were obtained after the intravenous administration of 75 mL Omnipaque 300. Coronal and sagittal reformats are provided. FINDINGS: Visualized portions of the lung bases are clear. Heart size is within normal limits. No suspicious hepatic masses are identified. Liver is homogeneous in enhancement. Spleen, bilateral adrenal glands are normal in appearance. Gallbladder is present without adjacent inflammatory changes. Coarse calcification is identified in the region of the uncinate process of the pancreas, likely from chronic pancreatitis. There is no dilatation of the main pancreatic duct. The abdominal aorta is normal in course and caliber. There are no pathologically enlarged lymph nodes in the abdomen and pelvis. There is no abdominal free fluid. There is no free intraperitoneal air. Small and large bowel are normal in caliber. There is no evidence for bowel obstruction. There are no pericolonic inflammatory changes. A normal, nondilated appendix is visualized without adjacent inflammatory changes. The kidneys enhance symmetrically. There is no suspicious renal mass. There is no hydronephrosis. There are no suspected calculi within the kidneys, ureters or urinary bladder. Urinary bladder is within normal limits given degree of distention. Prostate and seminal vesicles are normal in appearance. No suspicious osseous amount is identified. IMPRESSION: Stable coarse calcifications are identified within the uncinate process of the pancreas suggestive of sequela of chronic pancreatitis. Further evaluation with MRCP may be of benefit assess for any pancreatic ductal abnormality. No evidence for bowel obstruction or inflammation. Electronically signed by: Ginger Jasso MD (11/27/2018 10:38 AM) [id number]
[2018-11-27] MEDS ORDERED: ONDANSETRON PF 4 MG/2 ML VIAL. IV PRN (11:00)
[2018-11-27] MEDS ORDERED: ACETAMINOPHEN 500 MG TABLET PO PRN (11:00)
[2018-11-27] MEDS ORDERED: ONDANSETRON ODT 4 MG TAB.RAPDIS. PO PRN (11:00)
[2018-11-27] MEDS: IV NORMAL SALINE 1000ML BAG 1,000 ML IV SCH ×2 (11:49→20:58)
--- NOTE | 2018-11-27 12:47 | PDOC2 ---
GI CONSULT Reason For Consult: MRCP? HPI: HPI: 33 y/o male who has seen Dr. Townsend before. Back to ER w/ upper abd pain x 2 days, associated w/ nausea. Feels like previous episodes of pancreatitis. Precipitated by drinking alcohol (drinks 1/2 pint of vodka QOD and 24 can of beer daily). Improved at home w/ hydrocodone and aggravated by eating. Denies reflux/heartburn, dysphagia, vomiting, diarrhea, constipation, hematochezia, and melena. Weight fluctuates. Was eating/drinking normally until pain recurred. No previous EGD or colonoscopy. No GB or PUD history. Chart lists h/o Hep C - viral serologies negative here in the past. No NSAIDs. Asks how he can find a primary care doctor. PMH: PMH: pancreatitis, substance abuse, hemorrhoids FH: Family History: No pertinent hx (denies GI cancer, pancreatitis, liver disease) Social History: Smoke: No ALCOHOL: heavy Drugs: Other (past PCP use) ROS: GEN: Denies fevers, chills, sweats HEENT: Denies blurred vision, sore throat CV: Denies chest pain RESP: Denies shortness of air, cough GI: Per HPI : Denies hematuria, dysuria ENDO: fluctuating weight NEURO: Denies confusion, dizziness MSK: Denies weakness, joint pain/swelling SKIN: Denies jaundice, pruritus Vitals: Vitals: Vital Signs Date Time Temp Pulse Resp B/P (MAP) Pulse Ox O2 Delivery O2 Flow Rate FiO2 11/27/18 08:44 74 118/81 (93) 97 Room Air 11/27/18 08:07 16 11/27/18 07:55 98.6 98.6 Labs: Labs: Laboratory Tests Test 11/27/18 08:00 White Blood Count 6.4 x10^3/uL (4.0-11.0) Red Blood Count 5.84 x10^6/uL (4.30-5.70) Hemoglobin 16.6 g/dL (13.0-17.5) Hematocrit 50.1 % (39.0-53.0) Mean Corpuscular Volume 86 fL (79-100) Mean Corpuscular Hemoglobin 28 pg (25-35) Mean Corpuscular Hemoglobin Concent 33 g/dL (31-37) Red Cell Distribution Width 16.0 % (11.5-14.5) Platelet Count 210 x10^3/uL (140-400) Neutrophils (%) (Auto) 69 % (31-73) Lymphocytes (%) (Auto) 23 % (24-48) Monocytes (%) (Auto) 7 % (0-9) Eosinophils (%) (Auto) 1 % (0-3) Basophils (%) (Auto) 0 % (0-3) Neutrophils # (Auto) 4.4 x10^3uL (1.8-7.7) Lymphocytes # (Auto) 1.5 x10^3/uL (1.0-4.8) Monocytes # (Auto) 0.4 x10^3/uL (0.0-1.1) Eosinophils # (Auto) 0.1 x10^3/uL (0.0-0.7) Basophils # (Auto) 0.0 x10^3/uL (0.0-0.2) Sodium Level 139 mmol/L (136-145) Potassium Level 3.7 mmol/L (3.5-5.1) Chloride Level 102 mmol/L (98-107) Carbon Dioxide Level 24 mmol/L (21-32) Anion Gap 13 (6-14) Blood Urea Nitrogen 7 mg/dL (8-26) Creatinine 0.9 mg/dL (0.7-1.3) Estimated GFR (Cockcroft-Gault) 118.3 Glucose Level 104 mg/dL (70-99) Calcium Level 9.4 mg/dL (8.5-10.1) Total Bilirubin 0.3 mg/dL (0.2-1.0) Direct Bilirubin 0.1 mg/dL (0.0-0.2) Aspartate Amino Transf (AST/SGOT) 29 U/L (15-37) Alanine Aminotransferase (ALT/SGPT) 29 U/L (16-63) Alkaline Phosphatase 51 U/L (46-116) Total Protein 7.8 g/dL (6.4-8.2) Albumin 4.0 g/dL (3.4-5.0) Lipase 380 U/L (73-393) Allergies: Coded Allergies: No Known Drug Allergies (Unverified , 03/24/14) Medications: Current Medications Medications (Trade) Dose Ordered Sig/Estuardo Route PRN Reason Start Time Stop Time Status Last Admin Dose Admin Hydromorphone HCl (Dilaudid) 0.5 mg PRN Q1HR PRN IV/SQ PAIN GREATER THAN 3/10 11/27/18 08:00 11/28/18 07:59 11/27/18 08:07 Sodium Chloride 1,000 ml @ 1,000 mls/hr Q1H IV 11/27/18 07:50 11/27/18 08:49 DC 11/27/18 08:07 Ondansetron HCl (Zofran) 4 mg 1X ONCE IV 11/27/18 08:00 11/27/18 08:01 DC 11/27/18 08:07 Sodium Chloride 1,000 ml @ 100 mls/hr Q10H IV 11/27/18 11:00 11/27/18 11:49 Imaging: Imaging: CT A/P IMPRESSION: Stable coarse calcifications are identified within the uncinate process of the pancreas suggestive of sequela of chronic pancreatitis. Further evaluation with MRCP may be of benefit assess for any pancreatic ductal abnormality. No evidence for bowel obstruction or inflammation. PE: GEN: NAD - playing on his phone HEENT: Atraumatic, PERRL LUNGS: CTAB HEART: RRR ABD: quiet, S/ND, epigastric discomfort EXTREMITY: No edema SKIN: No rashes, no jaundice NEURO/PSYCH: A & O 3, flat A/P: A/P: Abd pain, nausea Chronic pancreatitis Alcohol abuse CRC screen - average risk -- Pain control per primary. Consider trying clear liquids, advance as tolerated. Will ask SW to see re: his questions about establishing care w/ a PCP. Quit drinking. Asked to see re: need for MRCP - will review this w/ Dr. Townsend. ZAY AMADOR Nov 27, 2018 12:47
--- NOTE | 2018-11-27 12:48 | PDOC1 ---
History and Physical Date of Admission Date of Admission DATE: 11/27/18 TIME: 12:45 Identification/Chief Complaint Chief Complaint abd pain Source Source: Caregiver, Chart review, Patient History of Present Illness History of Present Illness 33-year-old -[place] male who drinks alcohol, history of chronic pancreatitis comes in again because of abdominal pain with borderline high lipase. Acute on chronic pancreatitis. CAT scan: Stable coarse calcifications are identified within the uncinate process of the pancreas suggestive of sequela of chronic pancreatitis. Further evaluation with MRCP may be of benefit assess for any pancreatic ductal abnormality. No evidence for bowel obstruction or inflammation. He otherwise looks comfortable watching TV, no abdominal pain, I'm comfortable starting a liquid diet especially since lipase is only borderline high Past Medical History Cardiovascular: No pertinent hx Pulmonary: No pertinent hx GI: Other (chronic pancreatitis) Heme/Onc: No pertinent hx Hepatobiliary: No pertinent hx Psych: No pertinent hx Rheumatologic: No pertinent hx Infectious disease: No pertinent hx ENT: No pertinent hx Renal/: No pertinent hx Endocrine: No pertinent hx Dermatology: No pertinent hx Past Surgical History Past Surgical History: No pertinent history Family History Family History: No Significant Social History Smoke: No ALCOHOL: heavy Drugs: Other Current Medications Current Medications Current Medications Hydromorphone HCl (Dilaudid) 0.5 mg PRN Q1HR PRN IV/SQ PAIN GREATER THAN 3/10 Last administered on 11/27/18at 08:07; Start 11/27/18 at 08:00; Stop 11/28/18 at 07:59 Sodium Chloride 1,000 ml @ 1,000 mls/hr Q1H IV Last administered on 11/27/18at 08:07; Start 11/27/18 at 07:50; Stop 11/27/18 at 08:49; Status DC Ondansetron HCl (Zofran) 4 mg 1X ONCE IV Last administered on 11/27/18at 08:07 ; Start 11/27/18 at 08:00; Stop 11/27/18 at 08:01; Status DC Iohexol (Omnipaque 300 Mg/ml) 75 ml 1X ONCE IV ; Start 11/27/18 at 10:00; Stop 11/27/18 at 10:01; Status DC Acetaminophen (Tylenol) 500 mg PRN Q6HRS PRN PO MILD PAIN / TEMP; Start at 11:00 Acetaminophen/ Codeine Phosphate (Tylenol #3) 1 tab PRN Q6HRS PRN PO MODERATE PAIN; Start 11/27/18 at 11:00 Ondansetron HCl (Zofran) 4 mg PRN Q6HRS PRN IV NAUSEA/VOMITING; Start 11/27/18 at 11:00 Ondansetron HCl (Zofran Odt) 4 mg PRN Q6HRS PRN PO NAUSEA/VOMITING; Start 11/27 at 11:00 Famotidine (Pepcid Vial) 20 mg QHS IVP ; Start 11/27/18 at 21:00 Sodium Chloride 1,000 ml @ 100 mls/hr Q10H IV Last administered on 11/27/18at 11:49; Start 11/27/18 at 11:00 Fentanyl Citrate (Fentanyl 2ml Vial) 50 mcg PRN Q2HR PRN IV PAIN; Start at 11:00 Active Scripts Active No Active Prescriptions or Reported Medications Allergies Allergies: Coded Allergies: No Known Drug Allergies (Unverified , 03/24/14) ROS Review of System As per history of present illness, the rest of ROS 14 point negative Physical Exam General: Alert, Oriented X3, Cooperative, No acute distress HEENT: PERRLA, EOMI Lungs: Clear to auscultation, Normal air movement Heart: S1S2, RRR, no thrills, no rubs, no gallops, no murmurs Cardiovascular: S1, S2 Abdomen: Normal bowel sounds, Soft, No tenderness Male Genitals Exam: normal genitalia, normal prostate Rectal Exam: not examined PELVIC: Nml ext genitalia Extremities: No clubbing, No cyanosis, No edema, Normal pulses, No tenderness/ swelling Skin: No rashes, No breakdown, No significant lesion Neuro: Normal gait, Normal speech, Strength at 5/5 X4 ext, Normal tone, Sensation intact, Cranial nerves 3-12 NL, Reflexes 2+ Psych/Mental Status: Mental status NL, Mood NL Vitals Vitals Vital Signs Date Time Temp Pulse Resp B/P (MAP) Pulse Ox O2 Delivery O2 Flow Rate FiO2 11/27/18 08:44 74 118/81 (93) 97 Room Air 11/27/18 08:07 16 11/27/18 07:55 98.6 98.6 Labs Labs Laboratory Tests Test 11/27/18 08:00 White Blood Count 6.4 x10^3/uL (4.0-11.0) Red Blood Count 5.84 x10^6/uL (4.30-5.70) Hemoglobin 16.6 g/dL (13.0-17.5) Hematocrit 50.1 % (39.0-53.0) Mean Corpuscular Volume 86 fL (79-100) Mean Corpuscular Hemoglobin 28 pg (25-35) Mean Corpuscular Hemoglobin Concent 33 g/dL (31-37) Red Cell Distribution Width 16.0 % (11.5-14.5) Platelet Count 210 x10^3/uL (140-400) Neutrophils (%) (Auto) 69 % (31-73) Lymphocytes (%) (Auto) 23 % (24-48) Monocytes (%) (Auto) 7 % (0-9) Eosinophils (%) (Auto) 1 % (0-3) Basophils (%) (Auto) 0 % (0-3) Neutrophils # (Auto) 4.4 x10^3uL (1.8-7.7) Lymphocytes # (Auto) 1.5 x10^3/uL (1.0-4.8) Monocytes # (Auto) 0.4 x10^3/uL (0.0-1.1) Eosinophils # (Auto) 0.1 x10^3/uL (0.0-0.7) Basophils # (Auto) 0.0 x10^3/uL (0.0-0.2) Sodium Level 139 mmol/L (136-145) Potassium Level 3.7 mmol/L (3.5-5.1) Chloride Level 102 mmol/L (98-107) Carbon Dioxide Level 24 mmol/L (21-32) Anion Gap 13 (6-14) Blood Urea Nitrogen 7 mg/dL (8-26) Creatinine 0.9 mg/dL (0.7-1.3) Estimated GFR (Cockcroft-Gault) 118.3 Glucose Level 104 mg/dL (70-99) Calcium Level 9.4 mg/dL (8.5-10.1) Total Bilirubin 0.3 mg/dL (0.2-1.0) Direct Bilirubin 0.1 mg/dL (0.0-0.2) Aspartate Amino Transf (AST/SGOT) 29 U/L (15-37) Alanine Aminotransferase (ALT/SGPT) 29 U/L (16-63) Alkaline Phosphatase 51 U/L (46-116) Total Protein 7.8 g/dL (6.4-8.2) Albumin 4.0 g/dL (3.4-5.0) Lipase 380 U/L (73-393) Laboratory Tests Test 11/27/18 08:00 White Blood Count 6.4 x10^3/uL (4.0-11.0) Red Blood Count 5.84 x10^6/uL (4.30-5.70) Hemoglobin 16.6 g/dL (13.0-17.5) Hematocrit 50.1 % (39.0-53.0) Mean Corpuscular Volume 86 fL (79-100) Mean Corpuscular Hemoglobin 28 pg (25-35) Mean Corpuscular Hemoglobin Concent 33 g/dL (31-37) Red Cell Distribution Width 16.0 % (11.5-14.5) Platelet Count 210 x10^3/uL (140-400) Neutrophils (%) (Auto) 69 % (31-73) Lymphocytes (%) (Auto) 23 % (24-48) Monocytes (%) (Auto) 7 % (0-9) Eosinophils (%) (Auto) 1 % (0-3) Basophils (%) (Auto) 0 % (0-3) Neutrophils # (Auto) 4.4 x10^3uL (1.8-7.7) Lymphocytes # (Auto) 1.5 x10^3/uL (1.0-4.8) Monocytes # (Auto) 0.4 x10^3/uL (0.0-1.1) Eosinophils # (Auto) 0.1 x10^3/uL (0.0-0.7) Basophils # (Auto) 0.0 x10^3/uL (0.0-0.2) Sodium Level 139 mmol/L (136-145) Potassium Level 3.7 mmol/L (3.5-5.1) Chloride Level 102 mmol/L (98-107) Carbon Dioxide Level 24 mmol/L (21-32) Anion Gap 13 (6-14) Blood Urea Nitrogen 7 mg/dL (8-26) Creatinine 0.9 mg/dL (0.7-1.3) Estimated GFR (Cockcroft-Gault) 118.3 Glucose Level 104 mg/dL (70-99) Calcium Level 9.4 mg/dL (8.5-10.1) Total Bilirubin 0.3 mg/dL (0.2-1.0) Direct Bilirubin 0.1 mg/dL (0.0-0.2) Aspartate Amino Transf (AST/SGOT) 29 U/L (15-37) Alanine Aminotransferase (ALT/SGPT) 29 U/L (16-63) Alkaline Phosphatase 51 U/L (46-116) Total Protein 7.8 g/dL (6.4-8.2) Albumin 4.0 g/dL (3.4-5.0) Lipase 380 U/L (73-393) VTE Prophylaxis Ordered VTE Prophylaxis Devices: Yes VTE Pharmacological Prophylaxi: Yes Assessment/Plan Assessment/Plan Acute on chronic pancreatitis Borderline elevated lipase Alcohol drinker Plan: Admit , liquid diet, lipase tomorrow, IV fluids, GI consulted because of mention of MRCP/on abnormal CT NO home meds to reconcile? CIWA< WOF withdrawals NEIDA POLANCO MD Nov 27, 2018 12:48
[2018-11-27 13:00] VITALS: BP 135/99
[2018-11-27] MEDS: POLYETHYLENE GLYCOL 3350 17 GM PACKET. PO SCH (13:00)
[2018-11-27] MEDS ORDERED: chlordiazePOXIDE HCL 25 MG CAPSULE PO PRN (13:00)
[2018-11-27] MEDS: MULTIVITAMIN with MINERAL TABLET. PO SCH (13:13)
[2018-11-27] MEDS: THIAMINE 100 MG TABLET. PO SCH (13:13)
[2018-11-27] MEDS: ACETAMINOPHEN/CODEINE 300/30MG TABLET. PO PRN (13:14)
[2018-11-27] MEDS: FOLIC ACID 1 MG TABLET. PO SCH (13:14)
[2018-11-27 13:34] LABS: BILIRUBIN,URINE NEGATIVE (NEG); CLARITY,URINE CLEAR; COLOR,URINE YELLOW; NITRITE,URINE NEGATIVE (NEG); PH,URINE 5.5; PROTEIN,URINE NEGATIVE (NEG-TRACE); UROBILINOGEN,URINE 0.2 mg/dL (0.2 mg/dL)
[2018-11-27 13:41] LABS: BACTERIA,URINE 0 /HPF (0-FEW); RBC,URINE 0 /HPF (0-2); WBC,URINE 0 /HPF (0-4)
--- NOTE | 2018-11-27 14:10 | NUR ---
pt arrived to unit at 1125 via wheelchair from ED. pt is in stable condition. pt has call light within reach and is alert and oriented. pt is rating his pain 6/10. will continue to monitor. received report from RYANN nichols in ER.
[2018-11-27 15:00] VITALS: BP 129/92
[2018-11-27] MEDS: fentaNYL PF VIAL 100 MCG/2 ML VIAL IV PRN ×2 (18:05→20:58)
[2018-11-27 19:00] VITALS: BP 120/81
[2018-11-27] MEDS ORDERED: FAMOTIDINE 20 MG/2 ML VIAL IVP SCH (21:00)
[2018-11-27 23:00] VITALS: BP 112/75
[2018-11-28 03:00] VITALS: BP 123/86
[2018-11-28] MEDS: fentaNYL PF VIAL 100 MCG/2 ML VIAL IV PRN (03:45)
[2018-11-28 07:00] VITALS: BP 116/78
[2018-11-28] MEDS: IV NORMAL SALINE 1000ML BAG 1,000 ML IV SCH (07:00)
[2018-11-28] MEDS ORDERED: OXYC1TAB15 PO (08:15)
[2018-11-28] MEDS: MULTIVITAMIN with MINERAL TABLET. PO SCH (08:29)
[2018-11-28] MEDS: THIAMINE 100 MG TABLET. PO SCH (08:29)
[2018-11-28] MEDS: FOLIC ACID 1 MG TABLET. PO SCH (08:29)
[2018-11-28] MEDS: ACETAMINOPHEN/CODEINE 300/30MG TABLET. PO PRN (08:29)
[2018-11-28] MEDS: POLYETHYLENE GLYCOL 3350 17 GM PACKET. PO SCH (08:30)
--- NOTE | 2018-11-28 09:11 | PDOC3 ---
Discharge Summary Visit Information Date of Admission: Nov 27, 2018 Date of Discharge: Nov 28, 2018 Admitting Diagnosis Comment: Acute on chronic pancreatitis Borderline elevated lipase- now normalized Alcohol drinker Final Diagnosis Problems Medical Problems: (1) Pancreatitis Status: Acute Brief Hospital Course Allergies Allergies Coded Allergies Type Severity Reaction Last Updated Verified No Known Drug Allergies 03/24/14 No Vital Signs Vital Signs Date Time Temp Pulse Resp B/P (MAP) Pulse Ox O2 Delivery O2 Flow Rate FiO2 11/28/18 08:29 100 Room Air 11/28/18 07:00 97.6 69 18 116/78 (91) 97.6 Lab Results Laboratory Tests Test 11/27/18 08:00 11/27/18 13:15 11/28/18 07:33 White Blood Count 6.4 x10^3/uL (4.0-11.0) Red Blood Count 5.84 x10^6/uL (4.30-5.70) Hemoglobin 16.6 g/dL (13.0-17.5) Hematocrit 50.1 % (39.0-53.0) Mean Corpuscular Volume 86 fL (79-100) Mean Corpuscular Hemoglobin 28 pg (25-35) Mean Corpuscular Hemoglobin Concent 33 g/dL (31-37) Red Cell Distribution Width 16.0 % (11.5-14.5) Platelet Count 210 x10^3/uL (140-400) Neutrophils (%) (Auto) 69 % (31-73) Lymphocytes (%) (Auto) 23 % (24-48) Monocytes (%) (Auto) 7 % (0-9) Eosinophils (%) (Auto) 1 % (0-3) Basophils (%) (Auto) 0 % (0-3) Neutrophils # (Auto) 4.4 x10^3uL (1.8-7.7) Lymphocytes # (Auto) 1.5 x10^3/uL (1.0-4.8) Monocytes # (Auto) 0.4 x10^3/uL (0.0-1.1) Eosinophils # (Auto) 0.1 x10^3/uL (0.0-0.7) Basophils # (Auto) 0.0 x10^3/uL (0.0-0.2) Sodium Level 139 mmol/L (136-145) Potassium Level 3.7 mmol/L (3.5-5.1) Chloride Level 102 mmol/L (98-107) Carbon Dioxide Level 24 mmol/L (21-32) Anion Gap 13 (6-14) Blood Urea Nitrogen 7 mg/dL (8-26) Creatinine 0.9 mg/dL (0.7-1.3) Estimated GFR (Cockcroft-Gault) 118.3 Glucose Level 104 mg/dL (70-99) Calcium Level 9.4 mg/dL (8.5-10.1) Total Bilirubin 0.3 mg/dL (0.2-1.0) Direct Bilirubin 0.1 mg/dL (0.0-0.2) Aspartate Amino Transf (AST/SGOT) 29 U/L (15-37) Alanine Aminotransferase (ALT/SGPT) 29 U/L (16-63) Alkaline Phosphatase 51 U/L (46-116) Total Protein 7.8 g/dL (6.4-8.2) Albumin 4.0 g/dL (3.4-5.0) Lipase 380 U/L (73-393) 150 U/L (73-393) Urine Collection Type Unknown Urine Color Yellow Urine Clarity Clear Urine pH 5.5 Urine Specific [place] >=1.030 Urine Protein Negative mg/dL (NEG-TRACE) Urine Glucose (UA) Negative mg/dL (NEG) Urine Ketones (Stick) Trace mg/dL (NEG) Urine Blood Negative (NEG) Urine Nitrite Negative (NEG) Urine Bilirubin Negative (NEG) Urine Urobilinogen Dipstick 0.2 mg/dL (0.2 mg/dL) Urine Leukocyte Esterase Negative (NEG) Urine RBC 0 /HPF (0-2) Urine WBC 0 /HPF (0-4) Urine Bacteria 0 /HPF (0-FEW) Urine Mucus Slight /LPF Laboratory Tests Test 11/27/18 13:15 11/28/18 07:33 Urine Collection Type Unknown Urine Color Yellow Urine Clarity Clear Urine pH 5.5 Urine Specific [place] >=1.030 Urine Protein Negative mg/dL (NEG-TRACE) Urine Glucose (UA) Negative mg/dL (NEG) Urine Ketones (Stick) Trace mg/dL (NEG) Urine Blood Negative (NEG) Urine Nitrite Negative (NEG) Urine Bilirubin Negative (NEG) Urine Urobilinogen Dipstick 0.2 mg/dL (0.2 mg/dL) Urine Leukocyte Esterase Negative (NEG) Urine RBC 0 /HPF (0-2) Urine WBC 0 /HPF (0-4) Urine Bacteria 0 /HPF (0-FEW) Urine Mucus Slight /LPF Lipase 150 U/L (73-393) Brief Hospital Course Mr. Pa is a 33 old [sex] who presented with [ ] 33-year-old -[place] male who drinks alcohol, history of chronic pancreatitis comes in again because of abdominal pain with borderline high lipase. Acute on chronic pancreatitis. CAT scan: Stable coarse calcifications are identified within the uncinate process of the pancreas suggestive of sequela of chronic pancreatitis. Further evaluation with MRCP may be of benefit assess for any pancreatic ductal abnormality. No evidence for bowel obstruction or inflammation. He otherwise looks comfortable watching TV, no abdominal pain, I'm comfortable starting a liquid diet especially since lipase is only borderline high COURSE: Seen by GI, cleared from their perspective, not sure what the role of MRCP is hence okay to ADA T and go home. I did educate advise him about sequela of chronic pancreatitis namely insulin-dependent diabetes He will try to cut back on his alcohol Rx on chart (pain med only) PRoc; none Dc < 30 Discharge Information Condition at Discharge: Improved, Stable Disposition/Orders: D/C to Home Scheduled PRN Oxycodone/Apap 5-325 (Percocet 5-325 Mg Tablet ) 1 Each Tablet, 1 TAB PO PRN Q6HRS PRN for PAIN for 10 Days, #30 Ref 0 Prescribed by: NEIDA POLANCO on 11/28/18 0815 NEIDA POLANCO MD Nov 28, 2018 09:11
[2018-11-28 11:00] VITALS: BP 117/79
--- NOTE | 2018-11-28 13:27 | NUR ---
Pt was given all discharge instructions, follow up information, contact for primary physician, new prescriptions and teaching. Pt is stable. Alert x4. He is returning home with self care, he is aware that his pancreatitis is now diagnosed as a chronic condition secondary to his alcoholism. Pt says he is willing to quit drinking. Pt left at 1115, escorted by express transportation via wheelchair, all belongings left with pt at time of discharge. Iv removed, no tele.
[2018-11-28] MEDS ORDERED: FAMOTIDINE 20 MG TABLET. PO SCH (21:00)
== END 2018-11-28 11:15 | disposition home or self-care (01) ==
LOC: ER 07:32 → 4 NORTH 10:47
PROVIDERS: ADMIT Internal Medicine; ATTEND Internal Medicine
DX: K85.90 Acute pancreatitis without necrosis or infection, unspecified (principal); K86.1 Other chronic pancreatitis; K59.00 Constipation, unspecified; F10.20 Alcohol dependence, uncomplicated; R74.8 Abnormal levels of other serum enzymes
CPT/HCPCS: 36415; 74177; 80048; 80076; 81001; 83690; 85025; 96374; 96375; 96376; 99284; G0378; J1170; J2405; J3010; J3490; J7030; G0379

== ENCOUNTER 2019-03-18 10:32 | Inpatient (IN) | payer SELFPAY ==
[~2019-03-18] VITALS: Ht 160 cm; Wt 58.5 kg
[~2019-03-18 10:32] MED LIST changes: +OXYC1TAB15 PO
[2019-03-18] MEDS ORDERED: ONDANSETRON PF 4 MG/2 ML VIAL. IV ONE (11:15)
[2019-03-18] MEDS ORDERED: fentaNYL PF VIAL 100 MCG/2 ML VIAL IV ONE ×2 (11:15→13:45)
[2019-03-18] MEDS ORDERED: IV NORMAL SALINE 1000ML BAG 1,000 ML IV ONE (11:15)
[2019-03-18 11:17] LABS: BASO % 1 % (0-3); EOS % 0 % (0-3); HEMATOCRIT 43.3 % (39.0-53.0); HEMOGLOBIN 14.8 g/dL (13.0-17.5); LYMPH # 0.9 x10^3/uL (1.0-4.8); LYMPH % 15 % (24-48); MEAN CORPUSCULAR HEMOGLOBIN 30 pg (25-35); MEAN CORPUSCULAR HGB CONC 34 g/dL (31-37); MEAN CORPUSCULAR VOLUME 88 fL (79-100); MONO # 0.5 x10^3/uL (0.0-1.1); MONO % 8 % (0-9); NEUT # 4.4 x10^3/uL (1.8-7.7); NEUT % 76 % (31-73); PLATELET COUNT 164 x10^3/uL (140-400); RED BLOOD COUNT 4.95 x10^6/uL (4.30-5.70); RED CELL DISTRIBUTION WIDTH 16.6 % (11.5-14.5); WHITE BLOOD COUNT 5.7 x10^3/uL (4.0-11.0)
--- NOTE | 2019-03-18 11:29 | PHYS DOC ---
Past Medical History Past Medical History: Pancreatitis, Other Additional Past Medical Histor: finger fx Past Surgical History: No Surgical History Alcohol Use: Heavy Additional Information: DRINKS DAILY 1 PINT DAILY, DECREASED TO 1/4 PINT & BEER DAILY. Drug Use: None Adult General Chief Complaint Chief Complaint: ABDOMINAL PAIN HPI HPI Patient is a 34 year old AA male who presents to the ER with complaints of epigastric and right upper quadrant abdominal pain x 2-3 days. Pt reports a hx of pancreatitis and states that he has been drinking alochol since his birthday. Pt states he drinks about a fourth of a pint and a few beers daily. Currently, he rates his pain a 8/10 on the pain scale and describes it as squeezing discomfort. There are no alleviating or exacerbating factors. ROS Pt denies any fever, SOA, cough, sore throat, ear pain, vomiting, diarrhea, bloo dy stools, back pain, dysuria, hematuria, or increased urinary frequency. He reports nausea with the pain. He denies any swelling, numbness, or tingling of extremities. All other ROS is neg unless otherwise noted in HPI. Review of Systems Review of Systems See Above Current Medications Current Medications Current Medications Medications (Trade) Dose Ordered Sig/Estuardo Start Time Stop Time Status Last Admin Dose Admin Fentanyl Citrate (Fentanyl 2ml Vial) 50 mcg 1X ONCE 03/18/19 13:45 03/18/19 13:46 DC 03/18/19 13:38 50 MCG Ondansetron HCl (Zofran) 4 mg 1X ONCE 03/18/19 11:15 03/18/19 11:16 DC 03/18/19 11:21 4 MG Sodium Chloride 1,000 ml @ 1,000 mls/hr 1X ONCE 03/18/19 11:15 03/18/19 12:14 DC 03/18/19 11:19 1,000 MLS/HR Allergies Allergies Allergies Coded Allergies Type Severity Reaction Last Updated Verified No Known Drug Allergies 03/24/14 No Physical Exam Physical Exam See Above Constitutional: Well developed, well nourished, no acute distress, non-toxic appearance. [] HENT: Normocephalic, atraumatic, bilateral external ears normal, oropharynx moist, no oral exudates, nose normal. [] Eyes: PERRLA, EOMI, conjunctiva normal, no discharge. [] Neck: Normal range of motion, no tenderness, supple, no stridor. [] Cardiovascular:Heart rate regular rhythm, no murmur [] Lungs & Thorax: Bilateral breath sounds clear to auscultation [] Abdomen: Bowel sounds normal, soft, no masses, no pulsatile masses; RUQ and epigastric TTP, no rebound, no guarding Skin: Warm, dry, no erythema, no rash. [] Back: No tenderness, no CVA tenderness. [] Extremities: No tenderness, no cyanosis, no clubbing, ROM intact, no edema. [] Neurologic: Alert and oriented X 3, no focal deficits noted. [] Psychologic: Affect normal, judgement normal, mood normal. [] Current Patient Data Vital Signs Vital Signs Date Time Temp Pulse Resp B/P (MAP) Pulse Ox O2 Delivery O2 Flow Rate FiO2 03/18/19 13:45 85 13 134/83 (100) 95 Room Air 03/18/19 10:48 98.2 98.2 Lab Values Laboratory Tests Test 03/18/19 11:00 03/18/19 12:05 03/18/19 13:28 White Blood Count 5.7 x10^3/uL (4.0-11.0) Red Blood Count 4.95 x10^6/uL (4.30-5.70) Hemoglobin 14.8 g/dL (13.0-17.5) Hematocrit 43.3 % (39.0-53.0) Mean Corpuscular Volume 88 fL (79-100) Mean Corpuscular Hemoglobin 30 pg (25-35) Mean Corpuscular Hemoglobin Concent 34 g/dL (31-37) Red Cell Distribution Width 16.6 % (11.5-14.5) H Platelet Count 164 x10^3/uL (140-400) Neutrophils (%) (Auto) 76 % (31-73) H Lymphocytes (%) (Auto) 15 % (24-48) L Monocytes (%) (Auto) 8 % (0-9) Eosinophils (%) (Auto) 0 % (0-3) Basophils (%) (Auto) 1 % (0-3) Neutrophils # (Auto) 4.4 x10^3/uL (1.8-7.7) Lymphocytes # (Auto) 0.9 x10^3/uL (1.0-4.8) L Monocytes # (Auto) 0.5 x10^3/uL (0.0-1.1) Eosinophils # (Auto) 0.0 x10^3/uL (0.0-0.7) Basophils # (Auto) 0.0 x10^3/uL (0.0-0.2) Sodium Level 142 mmol/L (136-145) Potassium Level 3.7 mmol/L (3.5-5.1) Chloride Level 106 mmol/L (98-107) Carbon Dioxide Level 25 mmol/L (21-32) Anion Gap 11 (6-14) Blood Urea Nitrogen 9 mg/dL (8-26) Creatinine 0.9 mg/dL (0.7-1.3) Estimated GFR (Cockcroft-Gault) 117.6 BUN/Creatinine Ratio 10 (6-20) Glucose Level 89 mg/dL (70-99) Calcium Level 8.3 mg/dL (8.5-10.1) L Magnesium Level 1.6 mg/dL (1.8-2.4) L Total Bilirubin 0.7 mg/dL (0.2-1.0) Aspartate Amino Transferase (AST) 28 U/L (15-37) Alanine Aminotransferase (ALT) 22 U/L (16-63) Alkaline Phosphatase 46 U/L (46-116) Total Protein 6.8 g/dL (6.4-8.2) Albumin 3.6 g/dL (3.4-5.0) Albumin/Globulin Ratio 1.1 (1.0-1.7) Lipase 977 U/L (73-393) H Ethyl Alcohol Level < 10 mg/dL (0-10) Urine Collection Type Unknown Urine Color Yellow Urine Clarity Clear Urine pH 7.0 Urine Specific [place] 1.020 Urine Protein Negative mg/dL (NEG-TRACE) Urine Glucose (UA) Negative mg/dL (NEG) Urine Ketones (Stick) >=80 mg/dL (NEG) Urine Blood Negative (NEG) Urine Nitrite Negative (NEG) Urine Bilirubin Negative (NEG) Urine Urobilinogen Dipstick 1.0 mg/dL (0.2 mg/dL) Urine Leukocyte Esterase Negative (NEG) Urine RBC 0 /HPF (0-2) Urine WBC 0 /HPF (0-4) Urine Squamous Epithelial Cells Occ /LPF Urine Bacteria 0 /HPF (0-FEW) Urine Mucus Marked /LPF Urine Opiates Screen Neg (NEG) Urine Methadone Screen Neg (NEG) Urine Barbiturates Neg (NEG) Urine Phencyclidine Screen Neg (NEG) Urine Amphetamine/Methamphetamine Neg (NEG) Urine Benzodiazepines Screen Neg (NEG) Urine Cocaine Screen Neg (NEG) Urine Cannabinoids Screen Neg (NEG) Urine Ethyl Alcohol Neg (NEG) Laboratory Tests 03/18/19 11:00 Laboratory Tests 03/18/19 12:05 EKG EKG [] Radiology/Procedures Radiology/Procedures [] Course & Med Decision Making Course & Med Decision Making Pertinent Labs and Imaging studies reviewed. (See chart for details) Dx: Alcoholic pancreatitis Pt presented to ER with complaints of N/V and upper abd pain x 2 days, with reported hx of pancreatitis. CBC unremarkable, Lipase 977, calcium 8.3, mg 1.6, UA unremarkable Pt was given 1L of NS, 4 mg of zofran, and 2 doses of Fentanyl 50 mcg each, reports feeling better after these medications. VSS 1412- Spoke with Dr. Franco will admit patient for alcoholic pancreatitis Dragon Disclaimer Dragon Disclaimer This electronic medical record was generated, in whole or in part, using a voice recognition dictation system. Departure Departure Impression: Primary Impression: Alcoholic pancreatitis Disposition: ADMITTED INPATIENT Admitting Physician: ANI mckeon) Condition: STABLE Referrals: NO PCP (PCP) Problem Qualifiers Primary Impression: Alcoholic pancreatitis Chronicity: chronic Qualified Codes: K86.0 - Alcohol-induced chronic pancreatitis ORTIZ BAXTER [employer] Mar 18, 2019 11:29
[2019-03-18 12:23] LABS: CALCIUM 8.3 mg/dL (8.5-10.1); CREATININE 0.9 mg/dL (0.7-1.3); GFR 117.6; POTASSIUM 3.7 mmol/L (3.5-5.1)
[2019-03-18 12:30] LABS: ALBUMIN 3.6 g/dL (3.4-5.0); ALBUMIN/GLOBULIN RATIO 1.1 (1.0-1.7); MAGNESIUM 1.6 mg/dL (1.8-2.4); TOTAL BILIRUBIN 0.7 mg/dL (0.2-1.0); TOTAL PROTEIN 6.8 g/dL (6.4-8.2)
[2019-03-18 13:37] LABS: BILIRUBIN,URINE NEGATIVE (NEG); CLARITY,URINE CLEAR; COLOR,URINE YELLOW; NITRITE,URINE NEGATIVE (NEG); PROTEIN,URINE NEGATIVE (NEG-TRACE)
[2019-03-18 13:43] LABS: BARBITURATES NEG (NEG); BENZODIAZEPINES NEG (NEG); CANNABINOIDS NEG (NEG); COCAINE NEG (NEG); METHADONE NEG (NEG); OPIATES NEG (NEG); PHENCYCLIDINE NEG (NEG)
[2019-03-18 13:46] LABS: AMPHETAMINE/METHAMPHETAMINE NEG (NEG)
[2019-03-18 13:53] LABS: BACTERIA,URINE 0 /HPF (0-FEW); RBC,URINE 0 /HPF (0-2); SQUAMOUS EPITHELIAL CELL,UR OCC /LPF; WBC,URINE 0 /HPF (0-4)
[2019-03-18 15:00] VITALS: BP 150/102
[2019-03-18] MEDS ORDERED: ONDANSETRON PF 4 MG/2 ML VIAL. IV PRN (17:15)
[2019-03-18] MEDS: fentaNYL PF VIAL 100 MCG/2 ML VIAL IV PRN ×2 (17:20→19:52)
[2019-03-18] MEDS: IV NORMAL SALINE 1000ML BAG 1,000 ML IV SCH (17:20)
[2019-03-18 19:00] VITALS: BP 152/93
[2019-03-18] MEDS ORDERED: MAGNESIUM SULFATE 2GM 50 ML IV ONE (19:45)
[2019-03-18] MEDS ORDERED: oxyCODONE IR 5 MG TABLET PO ONE (22:00)
--- NOTE | 2019-03-18 22:07 | PDOC1 ---
History and Physical Date of Admission Date of Admission DATE: 03/18/19 TIME: 22:04 History of Present Illness History of Present Illness Mr. Pa, is a 34 year old male admit for acute abd pain. He has prior pancreatitis, and was drinking EtOH on his birthday for 4 days, [place] 2 days ago , acute pain, epigastric and right upper quadrant abdominal pain x 2 days. . Pt states he drinks about a fourth of a pint and a few beers daily. pain a 8/10, goes down to 5./10 after fentanyl 50 on the pain scale and describes it as squeezing discomfort. There are no alleviating or exacerbating factors. ROS Pt denies any fever, SOA, cough, sore throat, ear pain, vomiting, diarrhea, bloody stools, back pain, dysuria, hematuria, or increased urinary frequency. He reports nausea with the pain. He denies any swelling, numbness, or tingling of extremities. All other ROS is neg unless otherwise noted in HPI. Past Medical History Past Medical History pancreatitis Past Surgical History Past Surgical History: No pertinent history Family History Family History: No Significant Social History ALCOHOL: heavy Drugs: Other Current Medications Current Medications Current Medications Sodium Chloride 1,000 ml @ 1,000 mls/hr 1X ONCE IV Last administered on 03/18/19at 11:19; Start 03/18/19 at 11:15; Stop 03/18/19 at 12:14; Status DC Ondansetron HCl (Zofran) 4 mg 1X ONCE IV Last administered on 03/18/19at 11:21; Start 03/18/19 at 11:15; Stop 03/18/19 at 11:16; Status DC Fentanyl Citrate (Fentanyl 2ml Vial) 50 mcg 1X ONCE IV Last administered on 03/18/19at 11:20; Start 03/18/19 at 11:15; Stop 03/18/19 at 11:16; Status DC Fentanyl Citrate (Fentanyl 2ml Vial) 50 mcg 1X ONCE IV Last administered on 03/18/19at 13:38; Start 03/18/19 at 13:45; Stop 03/18/19 at 13:46; Status DC Ondansetron HCl (Zofran) 4 mg PRN Q6HRS PRN IV NAUSEA/VOMITING; Start 03/18/19 at 17:15 Sodium Chloride 1,000 ml @ 125 mls/hr Q8H IV Last administered on 03/18/19at 17:20; Start 03/18/19 at 17:15 Fentanyl Citrate (Fentanyl 2ml Vial) 50 mcg PRN Q2HR PRN IV PAIN Last administered on 03/18/19at 19:52; Start 03/18/19 at 17:15 Lorazepam (Ativan Inj) 2 mg PRN Q1HR PRN IV For CIWA 8-14; Start 03/18/19 at 17:15 Lorazepam (Ativan Inj) 4 mg PRN Q1HR PRN IV For CIWA 15 or greater; Start 03/18/19 at 17:15 Magnesium Sulfate 50 ml @ 25 mls/hr 1X ONCE IV Last administered on 03/18/19at 20:02; Start 03/18/19 at 19:45; Stop 03/18/19 at 21:44; Status DC Oxycodone HCl (Roxicodone) 10 mg 1X ONCE PO Last administered on 03/18/19at 22:01; Start 03/18/19 at 22:00; Stop 03/18/19 at 22:01; Status DC Oxycodone HCl (Roxicodone) 5 mg PRN Q4HRS PRN PO SEVERE PAIN 7-10; Start 03/18/19 at 22:00 Active Scripts Active Percocet 5-325 Mg Tablet (Oxycodone/Acetaminophen) 1 Each Tablet 1 Tab PO PRN Q6HRS PRN 10 Days Allergies Allergies: Coded Allergies: No Known Drug Allergies (Unverified , 03/24/14) ROS General: No: Chills, Night Sweats, Fatigue, Malaise, Appetite, Other PSYCHOLOGICAL ROS: No: Anxiety, Behavioral Disorder, Concentration difficultie, Decreased libido, Depression, Disorientation, Hallucinations, Hostility, Irritablity, Memory difficulties, Mood Swings, Obsessive thoughts, Physical abuse, Sexual abuse, Sleep disturbances, Suicidal ideation, Other Eyes: No Blurry vision, No Decreased vision, No Double vision, No Dry eyes, No Excessive tearing, No Eye Pain, No Itchy Eyes, No Loss of vision, No Photophobia, No Scotomata, No Uses contacts, No Uses glasses, No Other HEENT: No: Heacaches, Visual Changes, Hearing change, Nasal congestion, Nasal discharge, Oral lesions, Sinus pain, Sore Throat, Epistaxis, Sneezing, Snoring, Tinnitus, Vertigo, Vocal changes, Other Respiratory: No: Cough, Hemoptysis, Orthopnea, Pleuritic Pain, Shortness of breath, SOB with excertion, Sputum Changes, Stridor, Tachypnea, Wheezing, Other Cardiovascular: No Chest Pain, No Palpitations, No Orthopnea, No Paroxysmal Noc. Dyspnea, No Edema, No Lt Headedness, No Other Gastrointestinal: Yes Nausea, Yes Abdominal Pain; No Vomiting, No Diarrhea, No Constipation, No Melena, No Hematochezia, No Other Genitourinary: No Dysuria, No Frequency, No Incontinence, No Hematuria, No Retention, No Discharge, No Urgency, No Pain, No Flank Pain, No Other, No , No , No , No , No , No , No Musculoskeletal: No Gait Disturbance, No Joint Pain, No Joint Stiffness, No Joint Swelling, No Muscle Pain, No Muscular Weakness, No Pain In:, No Swelling In:, No Other Neurological: No Behavorial Changes, No Bowel/Bladder ControlChng, No Confus ion, No Dizziness, No Gait Disturbance, No Headaches, No Impaired Coord/balance, No Memory Loss, No Numbness/Tingling, No Seizures, No Speech Problems, No Tremors, No Visual Changes, No Weakness, No Other Skin: No Dry Skin, No Eczema, No Hair Changes, No Lumps, No Mole Changes, No Mottling, No Nail Changes, No Pruritus, No Rash, No Skin Lesion Changes, No Othe r, No Acne Physical Exam General: Alert, Oriented X3, Cooperative, mild distress HEENT: Atraumatic, PERRLA, EOMI Lungs: Clear to auscultation Heart: RRR, no gallops Abdomen: Normal bowel sounds, Soft Extremities: No cyanosis, No edema, Normal pulses Skin: No breakdown Neuro: Normal speech, Cranial nerves 3-12 NL Psych/Mental Status: Mental status NL, Mood NL Vitals Vitals Vital Signs Date Time Temp Pulse Resp B/P (MAP) Pulse Ox O2 Delivery O2 Flow Rate FiO2 03/18/19 20:00 Room Air 03/18/19 19:00 98.2 89 17 152/93 (112) 97 98.2 Labs Labs Laboratory Tests Test 03/18/19 11:00 03/18/19 12:05 03/18/19 13:28 White Blood Count 5.7 x10^3/uL (4.0-11.0) Red Blood Count 4.95 x10^6/uL (4.30-5.70) Hemoglobin 14.8 g/dL (13.0-17.5) Hematocrit 43.3 % (39.0-53.0) Mean Corpuscular Volume 88 fL (79-100) Mean Corpuscular Hemoglobin 30 pg (25-35) Mean Corpuscular Hemoglobin Concent 34 g/dL (31-37) Red Cell Distribution Width 16.6 % (11.5-14.5) Platelet Count 164 x10^3/uL (140-400) Neutrophils (%) (Auto) 76 % (31-73) Lymphocytes (%) (Auto) 15 % (24-48) Monocytes (%) (Auto) 8 % (0-9) Eosinophils (%) (Auto) 0 % (0-3) Basophils (%) (Auto) 1 % (0-3) Neutrophils # (Auto) 4.4 x10^3/uL (1.8-7.7) Lymphocytes # (Auto) 0.9 x10^3/uL (1.0-4.8) Monocytes # (Auto) 0.5 x10^3/uL (0.0-1.1) Eosinophils # (Auto) 0.0 x10^3/uL (0.0-0.7) Basophils # (Auto) 0.0 x10^3/uL (0.0-0.2) Sodium Level 142 mmol/L (136-145) Potassium Level 3.7 mmol/L (3.5-5.1) Chloride Level 106 mmol/L (98-107) Carbon Dioxide Level 25 mmol/L (21-32) Anion Gap 11 (6-14) Blood Urea Nitrogen 9 mg/dL (8-26) Creatinine 0.9 mg/dL (0.7-1.3) Estimated GFR (Cockcroft-Gault) 117.6 BUN/Creatinine Ratio 10 (6-20) Glucose Level 89 mg/dL (70-99) Calcium Level 8.3 mg/dL (8.5-10.1) Magnesium Level 1.6 mg/dL (1.8-2.4) Total Bilirubin 0.7 mg/dL (0.2-1.0) Aspartate Amino Transf (AST/SGOT) 28 U/L (15-37) Alanine Aminotransferase (ALT/SGPT) 22 U/L (16-63) Alkaline Phosphatase 46 U/L (46-116) Total Protein 6.8 g/dL (6.4-8.2) Albumin 3.6 g/dL (3.4-5.0) Albumin/Globulin Ratio 1.1 (1.0-1.7) Lipase 977 U/L (73-393) Ethyl Alcohol Level < 10 mg/dL (0-10) Urine Collection Type Unknown Urine Color Yellow Urine Clarity Clear Urine pH 7.0 Urine Specific [place] 1.020 Urine Protein Negative mg/dL (NEG-TRACE) Urine Glucose (UA) Negative mg/dL (NEG) Urine Ketones (Stick) >=80 mg/dL (NEG) Urine Blood Negative (NEG) Urine Nitrite Negative (NEG) Urine Bilirubin Negative (NEG) Urine Urobilinogen Dipstick 1.0 mg/dL (0.2 mg/dL) Urine Leukocyte Esterase Negative (NEG) Urine RBC 0 /HPF (0-2) Urine WBC 0 /HPF (0-4) Urine Squamous Epithelial Cells Occ /LPF Urine Bacteria 0 /HPF (0-FEW) Urine Mucus Marked /LPF Urine Opiates Screen Neg (NEG) Urine Methadone Screen Neg (NEG) Urine Barbiturates Neg (NEG) Urine Phencyclidine Screen Neg (NEG) Urine Amphetamine/Methamphetamine Neg (NEG) Urine Benzodiazepines Screen Neg (NEG) Urine Cocaine Screen Neg (NEG) Urine Cannabinoids Screen Neg (NEG) Urine Ethyl Alcohol Neg (NEG) Laboratory Tests Test 03/18/19 11:00 03/18/19 12:05 03/18/19 13:28 White Blood Count 5.7 x10^3/uL (4.0-11.0) Red Blood Count 4.95 x10^6/uL (4.30-5.70) Hemoglobin 14.8 g/dL (13.0-17.5) Hematocrit 43.3 % (39.0-53.0) Mean Corpuscular Volume 88 fL (79-100) Mean Corpuscular Hemoglobin 30 pg (25-35) Mean Corpuscular Hemoglobin Concent 34 g/dL (31-37) Red Cell Distribution Width 16.6 % (11.5-14.5) Platelet Count 164 x10^3/uL (140-400) Neutrophils (%) (Auto) 76 % (31-73) Lymphocytes (%) (Auto) 15 % (24-48) Monocytes (%) (Auto) 8 % (0-9) Eosinophils (%) (Auto) 0 % (0-3) Basophils (%) (Auto) 1 % (0-3) Neutrophils # (Auto) 4.4 x10^3/uL (1.8-7.7) Lymphocytes # (Auto) 0.9 x10^3/uL (1.0-4.8) Monocytes # (Auto) 0.5 x10^3/uL (0.0-1.1) Eosinophils # (Auto) 0.0 x10^3/uL (0.0-0.7) Basophils # (Auto) 0.0 x10^3/uL (0.0-0.2) Sodium Level 142 mmol/L (136-145) Potassium Level 3.7 mmol/L (3.5-5.1) Chloride Level 106 mmol/L (98-107) Carbon Dioxide Level 25 mmol/L (21-32) Anion Gap 11 (6-14) Blood Urea Nitrogen 9 mg/dL (8-26) Creatinine 0.9 mg/dL (0.7-1.3) Estimated GFR (Cockcroft-Gault) 117.6 BUN/Creatinine Ratio 10 (6-20) Glucose Level 89 mg/dL (70-99) Calcium Level 8.3 mg/dL (8.5-10.1) Magnesium Level 1.6 mg/dL (1.8-2.4) Total Bilirubin 0.7 mg/dL (0.2-1.0) Aspartate Amino Transf (AST/SGOT) 28 U/L (15-37) Alanine Aminotransferase (ALT/SGPT) 22 U/L (16-63) Alkaline Phosphatase 46 U/L (46-116) Total Protein 6.8 g/dL (6.4-8.2) Albumin 3.6 g/dL (3.4-5.0) Albumin/Globulin Ratio 1.1 (1.0-1.7) Lipase 977 U/L (73-393) Ethyl Alcohol Level < 10 mg/dL (0-10) Urine Collection Type Unknown Urine Color Yellow Urine Clarity Clear Urine pH 7.0 Urine Specific [place] 1.020 Urine Protein Negative mg/dL (NEG-TRACE) Urine Glucose (UA) Negative mg/dL (NEG) Urine Ketones (Stick) >=80 mg/dL (NEG) Urine Blood Negative (NEG) Urine Nitrite Negative (NEG) Urine Bilirubin Negative (NEG) Urine Urobilinogen Dipstick 1.0 mg/dL (0.2 mg/dL) Urine Leukocyte Esterase Negative (NEG) Urine RBC 0 /HPF (0-2) Urine WBC 0 /HPF (0-4) Urine Squamous Epithelial Cells Occ /LPF Urine Bacteria 0 /HPF (0-FEW) Urine Mucus Marked /LPF Urine Opiates Screen Neg (NEG) Urine Methadone Screen Neg (NEG) Urine Barbiturates Neg (NEG) Urine Phencyclidine Screen Neg (NEG) Urine Amphetamine/Methamphetamine Neg (NEG) Urine Benzodiazepines Screen Neg (NEG) Urine Cocaine Screen Neg (NEG) Urine Cannabinoids Screen Neg (NEG) Urine Ethyl Alcohol Neg (NEG) VTE Prophylaxis Ordered VTE Prophylaxis Devices: No VTE Pharmacological Prophylaxi: Yes Assessment/Plan Assessment/Plan alcohol abuse acute pancreatitis from EtOH intake severe abdominal pain, make NPO, try clears when pain better, try to trans to PO meds admit ANURADHA DAVIS MD Mar 18, 2019 22:07
[2019-03-18 22:30] VITALS: BP 153/101
[2019-03-19] MEDS: oxyCODONE IR 5 MG TABLET PO PRN ×5 (02:53→23:33)
[2019-03-19] MEDS: IV NORMAL SALINE 1000ML BAG 1,000 ML IV SCH ×4 (02:55→20:36)
[2019-03-19 03:00] VITALS: BP 136/78
[2019-03-19] MEDS: fentaNYL PF VIAL 100 MCG/2 ML VIAL IV PRN ×3 (06:27→21:32)
[2019-03-19 06:30] VITALS: BP 137/84
[2019-03-19] MEDS ORDERED: chlordiazePOXIDE HCL 25 MG CAPSULE PO PRN (08:15)
[2019-03-19] MEDS ORDERED: ACETAMINOPHEN 500 MG TABLET PO PRN (08:15)
[2019-03-19] MEDS ORDERED: NICOTINE 21MG PATCH. TD PRN (08:15)
[2019-03-19] MEDS ORDERED: MAGNESIUM SULFATE 2GM 50 ML IV ONE (08:30)
--- NOTE | 2019-03-19 09:30 | PDOC ---
PROGRESS NOTES Chief Complaint Chief Complaint ALcoholic panc Elevated lipase Hypomagnesemia NArc tolerant MOd PCM History of Present Illness History of Present Illness EPig pain continues, but no emesis No fevers Lipase 977 TRying too quit etoh non smoker Asks for inc dose pain emds MAg low - not replaced PLAN: Keep fentanyl at 75 q2 Inc oxy to 10mgs LIquid diet Lipase tmr MAg 2 gms now and recheck tmr ETOH cessation A readmission for the same,.... Vitals Vitals Vital Signs Date Time Temp Pulse Resp B/P (MAP) Pulse Ox O2 Delivery O2 Flow Rate FiO2 03/19/19 08:46 Room Air 03/19/19 06:30 98.4 92 15 137/84 (101) 97 98.4 Physical Exam General: Alert, Oriented X3, Cooperative, mild distress Heart: Regular rate, Normal S1, Normal S2 Lungs: Clear Abdomen: Normal bowel sounds, Soft Extremities: No cyanosis, No edema, Normal pulses Skin: No breakdown Labs LABS Laboratory Tests Test 03/18/19 11:00 03/18/19 12:05 03/18/19 13:28 White Blood Count 5.7 x10^3/uL (4.0-11.0) Red Blood Count 4.95 x10^6/uL (4.30-5.70) Hemoglobin 14.8 g/dL (13.0-17.5) Hematocrit 43.3 % (39.0-53.0) Mean Corpuscular Volume 88 fL (79-100) Mean Corpuscular Hemoglobin 30 pg (25-35) Mean Corpuscular Hemoglobin Concent 34 g/dL (31-37) Red Cell Distribution Width 16.6 % (11.5-14.5) Platelet Count 164 x10^3/uL (140-400) Neutrophils (%) (Auto) 76 % (31-73) Lymphocytes (%) (Auto) 15 % (24-48) Monocytes (%) (Auto) 8 % (0-9) Eosinophils (%) (Auto) 0 % (0-3) Basophils (%) (Auto) 1 % (0-3) Neutrophils # (Auto) 4.4 x10^3/uL (1.8-7.7) Lymphocytes # (Auto) 0.9 x10^3/uL (1.0-4.8) Monocytes # (Auto) 0.5 x10^3/uL (0.0-1.1) Eosinophils # (Auto) 0.0 x10^3/uL (0.0-0.7) Basophils # (Auto) 0.0 x10^3/uL (0.0-0.2) Sodium Level 142 mmol/L (136-145) Potassium Level 3.7 mmol/L (3.5-5.1) Chloride Level 106 mmol/L (98-107) Carbon Dioxide Level 25 mmol/L (21-32) Anion Gap 11 (6-14) Blood Urea Nitrogen 9 mg/dL (8-26) Creatinine 0.9 mg/dL (0.7-1.3) Estimated GFR (Cockcroft-Gault) 117.6 BUN/Creatinine Ratio 10 (6-20) Glucose Level 89 mg/dL (70-99) Calcium Level 8.3 mg/dL (8.5-10.1) Magnesium Level 1.6 mg/dL (1.8-2.4) Total Bilirubin 0.7 mg/dL (0.2-1.0) Aspartate Amino Transf (AST/SGOT) 28 U/L (15-37) Alanine Aminotransferase (ALT/SGPT) 22 U/L (16-63) Alkaline Phosphatase 46 U/L (46-116) Total Protein 6.8 g/dL (6.4-8.2) Albumin 3.6 g/dL (3.4-5.0) Albumin/Globulin Ratio 1.1 (1.0-1.7) Lipase 977 U/L (73-393) Ethyl Alcohol Level < 10 mg/dL (0-10) Urine Collection Type Unknown Urine Color Yellow Urine Clarity Clear Urine pH 7.0 Urine Specific [place] 1.020 Urine Protein Negative mg/dL (NEG-TRACE) Urine Glucose (UA) Negative mg/dL (NEG) Urine Ketones (Stick) >=80 mg/dL (NEG) Urine Blood Negative (NEG) Urine Nitrite Negative (NEG) Urine Bilirubin Negative (NEG) Urine Urobilinogen Dipstick 1.0 mg/dL (0.2 mg/dL) Urine Leukocyte Esterase Negative (NEG) Urine RBC 0 /HPF (0-2) Urine WBC 0 /HPF (0-4) Urine Squamous Epithelial Cells Occ /LPF Urine Bacteria 0 /HPF (0-FEW) Urine Mucus Marked /LPF Urine Opiates Screen Neg (NEG) Urine Methadone Screen Neg (NEG) Urine Barbiturates Neg (NEG) Urine Phencyclidine Screen Neg (NEG) Urine Amphetamine/Methamphetamine Neg (NEG) Urine Benzodiazepines Screen Neg (NEG) Urine Cocaine Screen Neg (NEG) Urine Cannabinoids Screen Neg (NEG) Urine Ethyl Alcohol Neg (NEG) Review of Systems Review of Systems epig pain, weak, no emesis, no fevers, no soa, no cp Comment Review of Relevant I have reviewed the following items donnie (where applicable) has been applied. Labs Laboratory Tests Test 03/18/19 11:00 03/18/19 12:05 03/18/19 13:28 White Blood Count 5.7 x10^3/uL (4.0-11.0) Red Blood Count 4.95 x10^6/uL (4.30-5.70) Hemoglobin 14.8 g/dL (13.0-17.5) Hematocrit 43.3 % (39.0-53.0) Mean Corpuscular Volume 88 fL (79-100) Mean Corpuscular Hemoglobin 30 pg (25-35) Mean Corpuscular Hemoglobin Concent 34 g/dL (31-37) Red Cell Distribution Width 16.6 % (11.5-14.5) Platelet Count 164 x10^3/uL (140-400) Neutrophils (%) (Auto) 76 % (31-73) Lymphocytes (%) (Auto) 15 % (24-48) Monocytes (%) (Auto) 8 % (0-9) Eosinophils (%) (Auto) 0 % (0-3) Basophils (%) (Auto) 1 % (0-3) Neutrophils # (Auto) 4.4 x10^3/uL (1.8-7.7) Lymphocytes # (Auto) 0.9 x10^3/uL (1.0-4.8) Monocytes # (Auto) 0.5 x10^3/uL (0.0-1.1) Eosinophils # (Auto) 0.0 x10^3/uL (0.0-0.7) Basophils # (Auto) 0.0 x10^3/uL (0.0-0.2) Sodium Level 142 mmol/L (136-145) Potassium Level 3.7 mmol/L (3.5-5.1) Chloride Level 106 mmol/L (98-107) Carbon Dioxide Level 25 mmol/L (21-32) Anion Gap 11 (6-14) Blood Urea Nitrogen 9 mg/dL (8-26) Creatinine 0.9 mg/dL (0.7-1.3) Estimated GFR (Cockcroft-Gault) 117.6 BUN/Creatinine Ratio 10 (6-20) Glucose Level 89 mg/dL (70-99) Calcium Level 8.3 mg/dL (8.5-10.1) Magnesium Level 1.6 mg/dL (1.8-2.4) Total Bilirubin 0.7 mg/dL (0.2-1.0) Aspartate Amino Transf (AST/SGOT) 28 U/L (15-37) Alanine Aminotransferase (ALT/SGPT) 22 U/L (16-63) Alkaline Phosphatase 46 U/L (46-116) Total Protein 6.8 g/dL (6.4-8.2) Albumin 3.6 g/dL (3.4-5.0) Albumin/Globulin Ratio 1.1 (1.0-1.7) Lipase 977 U/L (73-393) Ethyl Alcohol Level < 10 mg/dL (0-10) Urine Collection Type Unknown Urine Color Yellow Urine Clarity Clear Urine pH 7.0 Urine Specific [place] 1.020 Urine Protein Negative mg/dL (NEG-TRACE) Urine Glucose (UA) Negative mg/dL (NEG) Urine Ketones (Stick) >=80 mg/dL (NEG) Urine Blood Negative (NEG) Urine Nitrite Negative (NEG) Urine Bilirubin Negative (NEG) Urine Urobilinogen Dipstick 1.0 mg/dL (0.2 mg/dL) Urine Leukocyte Esterase Negative (NEG) Urine RBC 0 /HPF (0-2) Urine WBC 0 /HPF (0-4) Urine Squamous Epithelial Cells Occ /LPF Urine Bacteria 0 /HPF (0-FEW) Urine Mucus Marked /LPF Urine Opiates Screen Neg (NEG) Urine Methadone Screen Neg (NEG) Urine Barbiturates Neg (NEG) Urine Phencyclidine Screen Neg (NEG) Urine Amphetamine/Methamphetamine Neg (NEG) Urine Benzodiazepines Screen Neg (NEG) Urine Cocaine Screen Neg (NEG) Urine Cannabinoids Screen Neg (NEG) Urine Ethyl Alcohol Neg (NEG) Laboratory Tests Test 03/18/19 11:00 03/18/19 12:05 03/18/19 13:28 White Blood Count 5.7 x10^3/uL (4.0-11.0) Red Blood Count 4.95 x10^6/uL (4.30-5.70) Hemoglobin 14.8 g/dL (13.0-17.5) Hematocrit 43.3 % (39.0-53.0) Mean Corpuscular Volume 88 fL (79-100) Mean Corpuscular Hemoglobin 30 pg (25-35) Mean Corpuscular Hemoglobin Concent 34 g/dL (31-37) Red Cell Distribution Width 16.6 % (11.5-14.5) Platelet Count 164 x10^3/uL (140-400) Neutrophils (%) (Auto) 76 % (31-73) Lymphocytes (%) (Auto) 15 % (24-48) Monocytes (%) (Auto) 8 % (0-9) Eosinophils (%) (Auto) 0 % (0-3) Basophils (%) (Auto) 1 % (0-3) Neutrophils # (Auto) 4.4 x10^3/uL (1.8-7.7) Lymphocytes # (Auto) 0.9 x10^3/uL (1.0-4.8) Monocytes # (Auto) 0.5 x10^3/uL (0.0-1.1) Eosinophils # (Auto) 0.0 x10^3/uL (0.0-0.7) Basophils # (Auto) 0.0 x10^3/uL (0.0-0.2) Sodium Level 142 mmol/L (136-145) Potassium Level 3.7 mmol/L (3.5-5.1) Chloride Level 106 mmol/L (98-107) Carbon Dioxide Level 25 mmol/L (21-32) Anion Gap 11 (6-14) Blood Urea Nitrogen 9 mg/dL (8-26) Creatinine 0.9 mg/dL (0.7-1.3) Estimated GFR (Cockcroft-Gault) 117.6 BUN/Creatinine Ratio 10 (6-20) Glucose Level 89 mg/dL (70-99) Calcium Level 8.3 mg/dL (8.5-10.1) Magnesium Level 1.6 mg/dL (1.8-2.4) Total Bilirubin 0.7 mg/dL (0.2-1.0) Aspartate Amino Transf (AST/SGOT) 28 U/L (15-37) Alanine Aminotransferase (ALT/SGPT) 22 U/L (16-63) Alkaline Phosphatase 46 U/L (46-116) Total Protein 6.8 g/dL (6.4-8.2) Albumin 3.6 g/dL (3.4-5.0) Albumin/Globulin Ratio 1.1 (1.0-1.7) Lipase 977 U/L (73-393) Ethyl Alcohol Level < 10 mg/dL (0-10) Urine Collection Type Unknown Urine Color Yellow Urine Clarity Clear Urine pH 7.0 Urine Specific [place] 1.020 Urine Protein Negative mg/dL (NEG-TRACE) Urine Glucose (UA) Negative mg/dL (NEG) Urine Ketones (Stick) >=80 mg/dL (NEG) Urine Blood Negative (NEG) Urine Nitrite Negative (NEG) Urine Bilirubin Negative (NEG) Urine Urobilinogen Dipstick 1.0 mg/dL (0.2 mg/dL) Urine Leukocyte Esterase Negative (NEG) Urine RBC 0 /HPF (0-2) Urine WBC 0 /HPF (0-4) Urine Squamous Epithelial Cells Occ /LPF Urine Bacteria 0 /HPF (0-FEW) Urine Mucus Marked /LPF Urine Opiates Screen Neg (NEG) Urine Methadone Screen Neg (NEG) Urine Barbiturates Neg (NEG) Urine Phencyclidine Screen Neg (NEG) Urine Amphetamine/Methamphetamine Neg (NEG) Urine Benzodiazepines Screen Neg (NEG) Urine Cocaine Screen Neg (NEG) Urine Cannabinoids Screen Neg (NEG) Urine Ethyl Alcohol Neg (NEG) Medications Current Medications Sodium Chloride 1,000 ml @ 1,000 mls/hr 1X ONCE IV Last administered on 03/18/19at 11:19; Start 03/18/19 at 11:15; Stop 03/18/19 at 12:14; Status DC Ondansetron HCl (Zofran) 4 mg 1X ONCE IV Last administered on 03/18/19at 11:21; Start 03/18/19 at 11:15; Stop 03/18/19 at 11:16; Status DC Fentanyl Citrate (Fentanyl 2ml Vial) 50 mcg 1X ONCE IV Last administered on 03/18/19at 11:20; Start 03/18/19 at 11:15; Stop 03/18/19 at 11:16; Status DC Fentanyl Citrate (Fentanyl 2ml Vial) 50 mcg 1X ONCE IV Last administered on 03/18/19at 13:38; Start 03/18/19 at 13:45; Stop 03/18/19 at 13:46; Status DC Ondansetron HCl (Zofran) 4 mg PRN Q6HRS PRN IV NAUSEA/VOMITING; Start 03/18/19 at 17:15 Sodium Chloride 1,000 ml @ 125 mls/hr Q8H IV Last administered on 03/19/19at 02:55; Start 03/18/19 at 17:15 Fentanyl Citrate (Fentanyl 2ml Vial) 50 mcg PRN Q2HR PRN IV PAIN Last administered on 03/18/19at 19:52; Start 03/18/19 at 17:15; Stop 03/18/19 at 22:06; Status DC Lorazepam (Ativan Inj) 2 mg PRN Q1HR PRN IV For CIWA 8-14; Start 03/18/19 at 17:15 Lorazepam (Ativan Inj) 4 mg PRN Q1HR PRN IV For CIWA 15 or greater; Start 03/18/19 at 17:15 Magnesium Sulfate 50 ml @ 25 mls/hr 1X ONCE IV Last administered on 03/18/19at 20:02; Start 03/18/19 at 19:45; Stop 03/18/19 at 21:44; Status DC Oxycodone HCl (Roxicodone) 10 mg 1X ONCE PO Last administered on 03/18/19at 22:01; Start 03/18/19 at 22:00; Stop 03/18/19 at 22:01; Status DC Oxycodone HCl (Roxicodone) 5 mg PRN Q4HRS PRN PO SEVERE PAIN 7-10 Last administered on 03/19/19at 08:46; Start 03/18/19 at 22:00 Fentanyl Citrate (Fentanyl 2ml Vial) 75 mcg PRN Q2HR PRN IV SEVERE PAIN 7-10 Last administered on 03/19/19at 06:27; Start 03/18/19 at 22:15 Chlordiazepoxide (Librium) 25 mg PRN Q6HRS PRN PO ANXIETY / AGITATION; Start 03/19/19 at 08:15 Zolpidem Tartrate (Ambien) 5 mg PRN QHS PRN PO INSOMNIA; Start 03/19/19 at 08:15 Acetaminophen (Tylenol) 500 mg PRN Q6HRS PRN PO HEADACHE / TEMP; Start 03/19/19 at 08:15 Clonidine HCl (Catapres) 0.1 mg PRN Q1HR PRN PO HYPERTENSION; Start 03/19/19 at 08:15 Oxycodone/ Acetaminophen (Percocet 5/325) 1 tab PRN Q6HRS PRN PO PAIN MILD TO MODERATE; Start 03/19/19 at 08:15 Magnesium Sulfate 50 ml @ 25 mls/hr 1X ONCE IV Last administered on 03/19/19at 08:30; Start 03/19/19 at 08:30; Stop 03/19/19 at 10:29 Nicotine (Nicoderm Cq 21mg) 1 patch PRN DAILY PRN TD SMOKING CESSATION; Start 03/19/19 at 08:15 Active Scripts Active Percocet 5-325 Mg Tablet (Oxycodone/Acetaminophen) 1 Each Tablet 1 Tab PO PRN Q6HRS PRN 10 Days Vitals/I & O Vital Sign - Last 24 Hours 03/18/19 03/18/19 03/18/19 03/18/19 10:48 11:20 11:45 11:50 Temp 98.2 98.2 Pulse 94 78 Resp 18 16 21 16 B/P (MAP) 147/93 (111) 127/88 (101) Pulse Ox 96 98 98 97 O2 Delivery Room Air Room Air Room Air Room Air 03/18/19 03/18/19 03/18/19 03/18/19 12:15 12:45 13:15 13:38 Pulse 76 86 85 Resp 17 12 11 18 B/P (MAP) 141/96 (111) 140/93 (109) 148/98 (115) Pulse Ox 98 98 98 98 O2 Delivery Room Air Room Air Room Air Room Air 03/18/19 03/18/19 03/18/19 03/18/19 13:45 14:08 14:15 14:45 Pulse 85 76 87 Resp 13 18 12 12 B/P (MAP) 134/83 (100) 146/88 (107) 149/98 (115) Pulse Ox 95 95 98 95 O2 Delivery Room Air Room Air Room Air Room Air 03/18/19 03/18/19 03/18/19 03/18/19 15:00 15:26 17:20 17:54 Temp 98.1 98.1 Pulse 84 Resp 18 B/P (MAP) 150/102 (118) Pulse Ox 99 O2 Delivery Room Air Room Air Room Air Room Air 03/18/19 03/18/19 03/18/19 03/19/19 19:00 20:00 22:30 03:00 Temp 98.2 98.5 98.0 98.2 98.5 98.0 Pulse 89 89 84 Resp 17 18 15 B/P (MAP) 152/93 (112) 153/101 (118) 136/78 (97) Pulse Ox 97 97 96 O2 Delivery Room Air Room Air Room Air Room Air 03/19/19 03/19/19 06:30 08:46 Temp 98.4 98.4 Pulse 92 Resp 15 B/P (MAP) 137/84 (101) Pulse Ox 97 O2 Delivery Room Air Room Air Intake and Output 03/18/19 03/18/19 03/19/19 15:00 23:00 07:00 Intake Total 1000 ml 50 ml 1000 ml Balance 1000 ml 50 ml 1000 ml NEIDA POLANCO MD Mar 19, 2019 09:30
--- NOTE | 2019-03-19 10:17 | NUR ---
NIESHA consulted for ETOH abuse. NIESHA phoned PAT team for assessment and evaluation. Ruben will see pt today. Addendum: 03/19/19 at 1224 by KAREN SCHERER NIESHA following pt. Pt seen by Ruben and has agreed to follow up with [facility] upon dc. Pt is provided with resources.
[2019-03-19] MEDS: cloNIDine HCL 0.1 MG TABLET PO PRN ×2 (10:40→17:35)
[2019-03-19] MEDS: oxyCODONE/APAP 5/325 1 TAB TABLET PO PRN ×2 (10:41→20:35)
[2019-03-19 11:00] VITALS: BP 158/105
[2019-03-19 12:56] LABS: MAGNESIUM 2.9 mg/dL (1.8-2.4)
[2019-03-19 17:12] VITALS: BP 142/102
[2019-03-19 19:00] VITALS: BP 141/94
[2019-03-19] MEDS: ZOLPIDEM 5 MG TABLET. PO PRN (21:32)
[2019-03-19 23:32] VITALS: BP 139/98
[2019-03-20 03:00] VITALS: BP 111/74
[2019-03-20] MEDS: oxyCODONE/APAP 5/325 1 TAB TABLET PO PRN ×4 (05:34→21:34)
[2019-03-20] MEDS: IV NORMAL SALINE 1000ML BAG 1,000 ML IV SCH ×2 (05:35→14:10)
[2019-03-20 06:49] VITALS: BP 122/76
[2019-03-20] MEDS: fentaNYL PF VIAL 100 MCG/2 ML VIAL IV PRN (06:50)
[2019-03-20 11:14] VITALS: BP 111/72
--- NOTE | 2019-03-20 11:19 | PDOC ---
PROGRESS NOTES Chief Complaint Chief Complaint ALcoholic panc Elevated lipase Hypomagnesemia NArc tolerant MOd PCM History of Present Illness History of Present Illness EPig pain continues, but no emesis No fevers Lipase 5600 from 6700 TRying to quit etoh non smoker PLAN: Keep fentanyl at 75 q2 Inc oxy to 10mgs KEEP LIquid diet - lipase still markedly high Lipase tmr ETOH cessation A readmission for the same,.... Vitals Vitals Vital Signs Date Time Temp Pulse Resp B/P (MAP) Pulse Ox O2 Delivery O2 Flow Rate FiO2 03/20/19 08:00 Room Air 03/20/19 06:50 18 03/20/19 06:49 98.6 99 122/76 (91) 98 98.6 Physical Exam General: Alert, Oriented X3, Cooperative, mild distress Heart: Regular rate, Normal S1, Normal S2 Lungs: Clear Abdomen: Normal bowel sounds, Soft Extremities: No cyanosis, No edema, Normal pulses Skin: No breakdown Labs LABS Laboratory Tests Test 03/19/19 11:20 03/20/19 05:56 Magnesium Level 2.9 mg/dL (1.8-2.4) Lipase 6797 U/L (73-393) 5699 U/L (73-393) Review of Systems Review of Systems epig pain, some nausea, no emesis, no cp, no fever Comment Review of Relevant I have reviewed the following items donnie (where applicable) has been applied. Labs Laboratory Tests Test 03/18/19 12:05 03/18/19 13:28 03/19/19 11:20 03/20/19 05:56 Sodium Level 142 mmol/L (136-145) Potassium Level 3.7 mmol/L (3.5-5.1) Chloride Level 106 mmol/L (98-107) Carbon Dioxide Level 25 mmol/L (21-32) Anion Gap 11 (6-14) Blood Urea Nitrogen 9 mg/dL (8-26) Creatinine 0.9 mg/dL (0.7-1.3) Estimated GFR (Cockcroft-Gault) 117.6 BUN/Creatinine Ratio 10 (6-20) Glucose Level 89 mg/dL (70-99) Calcium Level 8.3 mg/dL (8.5-10.1) Magnesium Level 1.6 mg/dL (1.8-2.4) 2.9 mg/dL (1.8-2.4) Total Bilirubin 0.7 mg/dL (0.2-1.0) Aspartate Amino Transf (AST/SGOT) 28 U/L (15-37) Alanine Aminotransferase (ALT/SGPT) 22 U/L (16-63) Alkaline Phosphatase 46 U/L (46-116) Total Protein 6.8 g/dL (6.4-8.2) Albumin 3.6 g/dL (3.4-5.0) Albumin/Globulin Ratio 1.1 (1.0-1.7) Lipase 977 U/L (73-393) 6797 U/L (73-393) 5699 U/L (73-393) Ethyl Alcohol Level < 10 mg/dL (0-10) Urine Collection Type Unknown Urine Color Yellow Urine Clarity Clear Urine pH 7.0 Urine Specific [place] 1.020 Urine Protein Negative mg/dL (NEG-TRACE) Urine Glucose (UA) Negative mg/dL (NEG) Urine Ketones (Stick) >=80 mg/dL (NEG) Urine Blood Negative (NEG) Urine Nitrite Negative (NEG) Urine Bilirubin Negative (NEG) Urine Urobilinogen Dipstick 1.0 mg/dL (0.2 mg/dL) Urine Leukocyte Esterase Negative (NEG) Urine RBC 0 /HPF (0-2) Urine WBC 0 /HPF (0-4) Urine Squamous Epithelial Cells Occ /LPF Urine Bacteria 0 /HPF (0-FEW) Urine Mucus Marked /LPF Urine Opiates Screen Neg (NEG) Urine Methadone Screen Neg (NEG) Urine Barbiturates Neg (NEG) Urine Phencyclidine Screen Neg (NEG) Urine Amphetamine/Methamphetamine Neg (NEG) Urine Benzodiazepines Screen Neg (NEG) Urine Cocaine Screen Neg (NEG) Urine Cannabinoids Screen Neg (NEG) Urine Ethyl Alcohol Neg (NEG) Laboratory Tests Test 03/19/19 11:20 03/20/19 05:56 Magnesium Level 2.9 mg/dL (1.8-2.4) Lipase 6797 U/L (73-393) 5699 U/L (73-393) Medications Current Medications Sodium Chloride 1,000 ml @ 1,000 mls/hr 1X ONCE IV Last administered on 03/18/19at 11:19; Start 03/18/19 at 11:15; Stop 03/18/19 at 12:14; Status DC Ondansetron HCl (Zofran) 4 mg 1X ONCE IV Last administered on 03/18/19at 11:21; Start 03/18/19 at 11:15; Stop 03/18/19 at 11:16; Status DC Fentanyl Citrate (Fentanyl 2ml Vial) 50 mcg 1X ONCE IV Last administered on 03/18/19at 11:20; Start 03/18/19 at 11:15; Stop 03/18/19 at 11:16; Status DC Fentanyl Citrate (Fentanyl 2ml Vial) 50 mcg 1X ONCE IV Last administered on 03/18/19at 13:38; Start 03/18/19 at 13:45; Stop 03/18/19 at 13:46; Status DC Ondansetron HCl (Zofran) 4 mg PRN Q6HRS PRN IV NAUSEA/VOMITING; Start 03/18/19 at 17:15 Sodium Chloride 1,000 ml @ 125 mls/hr Q8H IV Last administered on 03/20/19at 05:35; Start 03/18/19 at 17:15 Fentanyl Citrate (Fentanyl 2ml Vial) 50 mcg PRN Q2HR PRN IV PAIN Last administered on 03/18/19at 19:52; Start 03/18/19 at 17:15; Stop 03/18/19 at 22:06; Status DC Lorazepam (Ativan Inj) 2 mg PRN Q1HR PRN IV For CIWA 8-14; Start 03/18/19 at 17:15 Lorazepam (Ativan Inj) 4 mg PRN Q1HR PRN IV For CIWA 15 or greater; Start 03/18/19 at 17:15 Magnesium Sulfate 50 ml @ 25 mls/hr 1X ONCE IV Last administered on 03/18/19at 20:02; Start 03/18/19 at 19:45; Stop 03/18/19 at 21:44; Status DC Oxycodone HCl (Roxicodone) 10 mg 1X ONCE PO Last administered on 03/18/19at 22: 01; Start 03/18/19 at 22:00; Stop 03/18/19 at 22:01; Status DC Oxycodone HCl (Roxicodone) 5 mg PRN Q4HRS PRN PO SEVERE PAIN 7-10 Last administered on 03/19/19at 08:46; Start 03/18/19 at 22:00; Stop 03/19/19 at 09:27; Status DC Fentanyl Citrate (Fentanyl 2ml Vial) 75 mcg PRN Q2HR PRN IV SEVERE PAIN 7-10 Last administered on 03/20/19at 06:50; Start 03/18/19 at 22:15 Chlordiazepoxide (Librium) 25 mg PRN Q6HRS PRN PO ANXIETY / AGITATION; Start 03/19/19 at 08:15 Zolpidem Tartrate (Ambien) 5 mg PRN QHS PRN PO INSOMNIA Last administered on 03/19/19at 21:32; Start 03/19/19 at 08:15 Acetaminophen (Tylenol) 500 mg PRN Q6HRS PRN PO HEADACHE / TEMP; Start 03/19/19 at 08:15 Clonidine HCl (Catapres) 0.1 mg PRN Q1HR PRN PO HYPERTENSION Last administered on 03/19/19at 17:35; Start 03/19/19 at 08:15 Oxycodone/ Acetaminophen (Percocet 5/325) 1 tab PRN Q6HRS PRN PO PAIN MILD TO MODERATE Last administered on 03/20/19at 05:34; Start 03/19/19 at 08:15 Magnesium Sulfate 50 ml @ 25 mls/hr 1X ONCE IV Last administered on 03/19/19 08:30; Start 03/19/19 at 08:30; Stop 03/19/19 at 10:29; Status DC Nicotine (Nicoderm Cq 21mg) 1 patch PRN DAILY PRN TD SMOKING CESSATION; Start 03/19/19 at 08:15 Oxycodone HCl (Roxicodone) 10 mg PRN Q6HRS PRN PO PAIN SEVERE Last administered on 03/19/19at 23:33; Start 03/19/19 at 09:30 Active Scripts Active Percocet 5-325 Mg Tablet (Oxycodone/Acetaminophen) 1 Each Tablet 1 Tab PO PRN Q6HRS PRN 10 Days Vitals/I & O Vital Sign - Last 24 Hours 03/19/19 03/19/19 03/19/19 03/19/19 17:12 17:35 19:00 20:30 Temp 99.7 99.1 99.7 99.1 Pulse 88 88 94 Resp 18 18 B/P (MAP) 142/102 (115) 142/102 141/94 (110) Pulse Ox 97 O2 Delivery Room Air Room Air Room Air 03/19/19 03/19/19 03/19/19 03/19/19 20:35 21:32 22:02 23:32 Temp 98.1 98.1 Pulse 84 Resp 20 20 18 20 B/P (MAP) 139/98 (112) Pulse Ox 100 O2 Delivery Room Air Room Air Room Air 03/19/19 03/20/19 03/20/19 03/20/19 23:33 00:33 03:00 05:34 Temp 98.3 98.3 Pulse 67 Resp 20 18 16 18 B/P (MAP) 111/74 (86) Pulse Ox 94 O2 Delivery Room Air Room Air Room Air Room Air 03/20/19 03/20/19 03/20/19 03/20/19 06:34 06:49 06:50 07:20 Temp 98.6 98.6 Pulse 99 Resp 18 18 18 B/P (MAP) 122/76 (91) Pulse Ox 98 O2 Delivery Room Air Room Air Room Air Room Air 03/20/19 08:00 O2 Delivery Room Air Intake and Output 03/19/19 03/19/19 03/20/19 15:00 23:00 07:00 Intake Total 1100 ml 1250 ml Balance 1100 ml 1250 ml NEIDA POLANCO MD Mar 20, 2019 11:19
[2019-03-20 15:09] VITALS: BP 110/70
[2019-03-20 19:00] VITALS: BP 136/92
[2019-03-20] MEDS ORDERED: POLYETHYLENE GLYCOL 3350 17 GM PACKET. PO ONE (19:15)
[2019-03-20] MEDS ORDERED: BISACODYL 10 MG SUPP.RECT. PR PRN (19:15)
[2019-03-20] MEDS ORDERED: MAGNESIUM HYDROXIDE 2,400 MG/30 ML ORAL.SUSP. PO PRN (19:15)
[2019-03-20] MEDS ORDERED: MAGNESIUM HYDROXIDE 2,400 MG/30 ML ORAL.SUSP. PO ONE (19:15)
[2019-03-20] MEDS: DOCUSATE SODIUM 100 MG CAPSULE. PO SCH (20:46)
[2019-03-20] MEDS: ZOLPIDEM 5 MG TABLET. PO PRN (23:02)
[2019-03-20 23:04] VITALS: BP 134/86
[2019-03-21 03:11] VITALS: BP 134/84
[2019-03-21] MEDS: IV NORMAL SALINE 1000ML BAG 1,000 ML IV SCH ×2 (03:13→09:15)
[2019-03-21 07:00] VITALS: BP 131/83
[2019-03-21] MEDS ORDERED: POLYETHYLENE GLYCOL 3350 17 GM PACKET. PO SCH (09:00)
[2019-03-21] MEDS: DOCUSATE SODIUM 100 MG CAPSULE. PO SCH (09:15)
[2019-03-21] MEDS ORDERED: OXYC1TAB15 PO (10:08)
--- NOTE | 2019-03-21 10:09 | PDOC3 ---
Discharge Summary Visit Information Date of Admission: Mar 18, 2019 Date of Discharge: Mar 21, 2019 Admitting Diagnosis Comment: Chief Complaint ALcoholic panc Elevated lipase Hypomagnesemia NArc tolerant MOd PCM Brief Hospital Course Allergies Allergies Coded Allergies Type Severity Reaction Last Updated Verified No Known Drug Allergies 03/24/14 No Vital Signs Vital Signs Date Time Temp Pulse Resp B/P (MAP) Pulse Ox O2 Delivery O2 Flow Rate FiO2 03/21/19 07:00 98.1 74 18 131/83 (99) 98 Room Air 98.1 Lab Results Laboratory Tests Test 03/19/19 11:20 03/20/19 05:56 03/21/19 07:20 Magnesium Level 2.9 mg/dL (1.8-2.4) Lipase 6797 U/L (73-393) 5699 U/L (73-393) 1318 U/L (73-393) Laboratory Tests Test 03/21/19 07:20 Lipase 1318 U/L (73-393) Brief Hospital Course Mr. Pa is a 34 old [place] Guinean male who continues to smoke and drink comes in because of alcoholic pancreatitis with initial lipase 977 and then jumped a 6800 now down to 5700 now 1300. No CAT scan needed After fasting for 3-4 days better. Home today with Percocet for pain medicine and advised CESSATION consults; none Discharge Information Condition at Discharge: Improved, Stable Disposition/Orders: D/C to Home Scheduled PRN Oxycodone/Apap 5-325 (Percocet 5-325 Mg Tablet ) 1 Each Tablet, 1 TAB PO PRN Q6HRS PRN for PAIN for 10 Days, #30 Ref 0 Prescribed by: NEIDA POLANCO on 03/21/19 1008 NEIDA POLANCO MD Mar 21, 2019 10:09
--- NOTE | 2019-03-21 11:47 | NUR ---
Discharge Note: PHILLIP [facility] Discharge instructions and discharge home medications reviewed with Patient and a copy given. All questions have been answered and understanding verbalized. The following instructions and handouts were given: patient visit report, medicaion information, education packet Discontinued lines and drains: peripheral IV, tip intact. Patient discharged to home with self care via taxi pass. Patient left unit in stable condition with all personal belongings.
== END 2019-03-21 11:45 | disposition home or self-care (01) | DRG 440 ==
LOC: ER 10:32 → 5 SOUTH 13:46
PROVIDERS: ADMIT Internal Medicine; ATTEND Internal Medicine
DX: K85.20 Alcohol induced acute pancreatitis without necrosis or infection (principal); E83.42 Hypomagnesemia; F10.10 Alcohol abuse, uncomplicated; Z87.891 Personal history of nicotine dependence
CPT/HCPCS: 36415; 80053; 80307; 81001; 83690; 83735; 85025; G0480; J2405; J3010; J3475; J7030

== ENCOUNTER 2020-04-12 00:22 | Inpatient (IN) | payer SELFPAY ==
[2020-04-12] VITALS (7 sets, daily range): BP systolic 147–161; BP diastolic 76–113
[~2020-04-12] VITALS: Ht 160 cm; Wt 56.3 kg
--- NOTE | 2020-04-12 01:08 | PHYS DOC ---
Past Medical History Past Medical History: Pancreatitis, Other Additional Past Medical Histor: finger fx Past Surgical History: No Surgical History Smoking Status: Former Smoker Alcohol Use: Heavy Drug Use: None General Adult EDM: Chief Complaint: ABDOMINAL PAIN HPI: HPI: The history was obtained from the patient. Patient is a 35-year-old male with PMH alcohol abuse who presents with a chief complaint of epigastric abdominal pain for the past 2 days. He states the pain started gradually has become worse. He states pain is sharp and sometimes radiates to his left lower back. He states that he does drink alcohol daily and has a history of alcoholic pancreatitis. He states this feels similar. He states he last drank vodka yesterday. He states he drinks 1-1-1/2 fifth of vodka daily. Denies drug or tobacco abuse. Denies vomiting but notes nausea. Tried 5 mg of her friends oxycodone prior to arrival with minimal relief. Nothing seems to alleviate the symptoms. Nothing seems to exacerbate the symptoms. Denies changes to his stool caliber or consistency. Denies urinary symptoms. No other complaints. Review of Systems: Review of Systems: Constitutional: Denies fever or chills. [] Eyes: Denies change in visual acuity. [] HENT: Denies nasal congestion or sore throat. [] Respiratory: Denies cough or shortness of breath. [] Cardiovascular: Denies chest pain or edema. [] GI: Positive for abdominal pain and nausea : Denies dysuria. [] Musculoskeletal: Denies back pain or joint pain. [] Integument: Denies rash. [] Neurologic: Denies headache, focal weakness or sensory changes. [] Endocrine: Denies polyuria or polydipsia. [] Lymphatic: Denies swollen glands. [] Psychiatric: Denies depression or anxiety. [] Heart Score: Risk Factors: Risk Factors: DM, Current or recent (<one month) smoker, HTN, HLP, family history of CAD, obesity. Risk Scores: Score 0 - 3: 2.5% MACE over next 6 weeks - Discharge Home Score 4 - 6: 20.3% MACE over next 6 weeks - Admit for Clinical Observation Score 7 - 10: 72.7% MACE over next 6 weeks - Early Invasive Strategies Allergies: Allergies: Allergies Coded Allergies Type Severity Reaction Last Updated Verified No Known Drug Allergies 03/24/14 No Physical Exam: PE: Constitutional: Well developed, well nourished, no acute distress, non-toxic appearance. [] HENT: Normocephalic, atraumatic, bilateral external ears normal, oropharynx moist, no oral exudates, nose normal. [] Eyes: PERRLA, EOMI, conjunctiva normal, no discharge. [] Neck: Normal range of motion, no tenderness, supple, no stridor. [] Cardiovascular:Heart rate regular rhythm, no murmur [] Lungs & Thorax: Bilateral breath sounds clear to auscultation [] Abdomen: Mild epigastric tenderness to palpation. No involuntary guarding or rigidity noted. No acute peritonitis. Skin: Warm, dry, no erythema, no rash. [] Back: No tenderness, no CVA tenderness. [] Extremities: No tenderness, no cyanosis, no clubbing, ROM intact, no edema. [] Neurologic: Alert and oriented X 3, normal motor function, normal sensory function, no focal deficits noted. [] Psychologic: Affect normal, judgement normal, mood normal. [] Current Patient Data: Labs: Laboratory Tests Test 04/12/20 01:25 White Blood Count 11.9 x10^3/uL Red Blood Count 5.30 x10^6/uL Hemoglobin 16.3 g/dL Hematocrit 48.2 % Mean Corpuscular Volume 91 fL Mean Corpuscular Hemoglobin 31 pg Mean Corpuscular Hemoglobin Concent 34 g/dL Red Cell Distribution Width 14.6 % Platelet Count 199 x10^3/uL Neutrophils (%) (Auto) 91 % Lymphocytes (%) (Auto) 3 % Monocytes (%) (Auto) 6 % Eosinophils (%) (Auto) 0 % Basophils (%) (Auto) 0 % Neutrophils # (Auto) 10.7 x10^3/uL Lymphocytes # (Auto) 0.3 x10^3/uL Monocytes # (Auto) 0.8 x10^3/uL Eosinophils # (Auto) 0.0 x10^3/uL Basophils # (Auto) 0.1 x10^3/uL Segmented Neutrophils % 95 % Band Neutrophils % 1 % Lymphocytes % 1 % Monocytes % 3 % Platelet Estimate Adequate Prothrombin Time 12.4 SEC Prothromb Time International Ratio 1.0 Sodium Level 139 mmol/L Potassium Level 3.9 mmol/L Chloride Level 101 mmol/L Carbon Dioxide Level 27 mmol/L Anion Gap 11 Blood Urea Nitrogen 8 mg/dL Creatinine 0.9 mg/dL Estimated GFR (Cockcroft-Gault) 116.9 BUN/Creatinine Ratio 9 Glucose Level 114 mg/dL Calcium Level 9.5 mg/dL Total Bilirubin 0.6 mg/dL Aspartate Amino Transf (AST/SGOT) 38 U/L Alanine Aminotransferase (ALT/SGPT) 26 U/L Alkaline Phosphatase 58 U/L Total Protein 8.2 g/dL Albumin 4.1 g/dL Albumin/Globulin Ratio 1.0 Lipase 5376 U/L Current Medications Medications (Trade) Dose Ordered Sig/Estuardo Route PRN Reason Start Time Stop Time Status Last Admin Dose Admin Ringer's Solution 1,000 ml @ 1,000 mls/hr 1X ONCE IV 04/12/20 01:15 04/12/20 02:14 DC 04/12/20 01:28 Ondansetron HCl (Zofran) 4 mg 1X ONCE IVP 04/12/20 01:15 04/12/20 01:16 DC 04/12/20 01:27 Morphine Sulfate (Morphine Sulfate) 4 mg 1X ONCE IV 04/12/20 01:30 04/12/20 01:31 DC 04/12/20 01:27 Iohexol (Omnipaque 300 Mg/ml) 75 ml 1X ONCE IV 04/12/20 02:15 04/12/20 02:16 DC 04/12/20 02:27 Info (CONTRAST GIVEN -- Rx MONITORING) 1 each PRN DAILY PRN MC SEE COMMENTS 04/12/20 02:15 04/14/20 02:14 EKG: EKG: [] Radiology/Procedures: Radiology/Procedures: [] Course & Med Decision Making: Course & Med Decision Making Pertinent Labs and Imaging studies reviewed. (See chart for details) Patient is a 35-year-old male who presents with chief complaint of epigastric abdominal discomfort. Initial vital signs unremarkable. Lipase significantly elevated at approximately 5300. Likely secondary to alcoholic pancreatitis. IV fluids are administered in the emergency department. Fluid resuscitation will be continued in the ER. CT abdomen pelvis shows no signs of necrosis or abscess. Patient stable for hospitalization. Dragon Disclaimer: Dragon Disclaimer: This electronic medical record was generated, in whole or in part, using a voice recognition dictation system. Departure Departure Impression: Primary Impression: Alcoholic pancreatitis Qualified Codes: K85.20 - Alcohol induced acute pancreatitis without necrosis or infection Disposition: 09 ADMITTED INPATIENT Condition: GOOD Referrals: NO PCP (PCP) Justicifation of Admission Dx: Justifications for Admission: Justification of Admission Dx: Yes Comments: ETOH Pancreatitis POPEYE KENYON DO Apr 12, 2020 01:08
[2020-04-12] MEDS ORDERED: ONDANSETRON PF 4 MG/2 ML VIAL. IVP ONE (01:15)
[2020-04-12] MEDS ORDERED: IV RINGERS,LACTATED 1000ML 1,000 ML IV ONE ×2 (01:15→02:30)
[2020-04-12] MEDS ORDERED: MORPHINE SULFATE 4 MG/ML VIAL. IV ONE (01:30)
[2020-04-12 01:38] LABS: BASO # 0.1 x10^3/uL (0.0-0.2); BASO % 0 % (0-3); EOS % 0 % (0-3); HEMATOCRIT 48.2 % (39.0-53.0); HEMOGLOBIN 16.3 g/dL (13.0-17.5); LYMPH # 0.3 x10^3/uL (1.0-4.8); LYMPH % 3 % (24-48); MEAN CORPUSCULAR HEMOGLOBIN 31 pg (25-35); MEAN CORPUSCULAR HGB CONC 34 g/dL (31-37); MEAN CORPUSCULAR VOLUME 91 fL (79-100); MONO # 0.8 x10^3/uL (0.0-1.1); MONO % 6 % (0-9); NEUT # 10.7 x10^3/uL (1.8-7.7); NEUT % 91 % (31-73); PLATELET COUNT 199 x10^3/uL (140-400); RED CELL DISTRIBUTION WIDTH 14.6 % (11.5-14.5); WHITE BLOOD COUNT 11.9 x10^3/uL (4.0-11.0)
[2020-04-12 01:47] LABS: PROTHROMBIN TIME PATIENT 12.4 SEC (11.7-14.0)
[2020-04-12 01:50] LABS: CALCIUM 9.5 mg/dL (8.5-10.1); CREATININE 0.9 mg/dL (0.7-1.3); GFR 116.9; POTASSIUM 3.9 mmol/L (3.5-5.1)
[2020-04-12 02:04] LABS: ALBUMIN 4.1 g/dL (3.4-5.0); TOTAL BILIRUBIN 0.6 mg/dL (0.2-1.0); TOTAL PROTEIN 8.2 g/dL (6.4-8.2)
[2020-04-12] MEDS ORDERED: CONTRAST GIVEN. MC PRN (02:15)
[2020-04-12] MEDS ORDERED: IOHEXOL 300 MG/ML 100ML VIAL. IV ONE (02:15)
[2020-04-12 02:28] LABS: % BANDS 1 % (0-9); % LYMPHS 1 % (24-48); % MONOS 3 % (0-10); % SEGS 95 % (35-66); PLT ESTIMATE ADEQUATE (ADEQUATE)
[2020-04-12] MEDS ORDERED: THIAMINE 100 MG TABLET. PO ONE (02:45)
[2020-04-12] MEDS ORDERED: FOLIC ACID 1 MG TABLET. PO ONE (02:45)
[2020-04-12] MEDS ORDERED: HYDROmorphone 2 MG/ML VIAL IV ONE (02:45)
--- NOTE | 2020-04-12 03:03 | RAD ---
Study: CT abdomen/pelvis with intravenous contrast Indication: Epigastric pain. History of pancreatitis. Comparison: Most recently on 11/27/2018. Technique: Helical CT imaging performed of the abdomen and pelvis after the intravenous administration of 75 cc Omnipaque 300 contrast. Sagittal and coronal reformats were obtained. One or more of the following individualized dose reduction techniques were utilized for this examination: 1. Automated exposure control 2. Adjustment of the mA and/or kV according to patient size 3. Use of iterative reconstruction technique. Findings: Chest: No newly seen abnormality. Liver: Diffuse hepatic steatosis. Gallbladder/Biliary Tree: No findings to suggest acute cholecystitis. No calcified gallstones. Nondilated common bile duct. Pancreas: Generalized peripancreatic edema/fluid. The majority of the pancreas enhances appropriately. There is again numerous foci of mineralization centered within the uncinate process. Slightly more noticeable hypoattenuation in the region of these calcifications relative to the prior but no large area of parenchymal necrosis. Spleen: Normal in size. Adrenal Glands: Unremarkable. Kidneys/Ureters/Bladder: No newly seen complex cyst or mass. No nephrolithiasis or collecting system dilatation. Reproductive Organs: Unchanged. Colon: Mild volume well-formed stool. Appendix: Unremarkable. Small Bowel: Nonobstructed. Stomach: No acute abnormality. Vasculature: Nonaneurysmal aorta. Patent central portal veins and superior mesenteric vein noting the more distal branches are not well evaluated due to bolus timing. The splenic vein is patent. The aortic branch vessels are patent where adequately evaluated. No splenic artery aneurysm is seen. Lymph Nodes: Within normal limits. Peritoneum and Body Wall: Diffuse peripancreatic edema/fluid extending downward along the mesentery. Small amount of free fluid within the pelvis. No well-circumscribed fluid collection. Bones: Unchanged rounded focus of sclerosis above the right acetabulum. No newly seen osseous abnormality. Miscellaneous: None. Impression: 1. Acute on chronic pancreatitis with diffuse peripancreatic edema/fluid, inflammatory changes and fluid extending downward along the mesentery and a small amount of free fluid within the pelvis. No large area of ankle necrosis. No associated vascular complication such as splenic vein thrombosis or splenic artery aneurysm. 2. Diffuse hepatic steatosis. Electronically signed by: CHANTAL SHETTY MD (04/12/2020 3:01 AM) [id number]
--- NOTE | 2020-04-12 04:30 | NUR ---
/RN received report from ED nurse Fernanda. Patient arrived on unit at 0350 by bed from ED. Pt. is a&ox4, on room air and complains of pain 02/24. Pt. does not have any orders at this time. RN will page MD for admission orders. Call light is within reach with bed in lowest position and bed alarm on. Will continue to monitor.
[2020-04-12] MEDS: MORPHINE SULFATE 2 MG/ML VIAL. IV PRN ×7 (05:07→20:39)
[2020-04-12] MEDS: ONDANSETRON PF 4 MG/2 ML VIAL. IVP PRN ×2 (05:14→18:38)
[2020-04-12] MEDS: AMINO AC 3%/ELECTROLYTE/GLYCER 1,000 ML IV SCH ×2 (05:14→16:54)
--- NOTE | 2020-04-12 09:22 | HP ---
ADMIT DATE: 04/12/2020 CHIEF COMPLAINT: Abdominal pain. HISTORY OF PRESENT ILLNESS: The patient is a pleasant middle-aged male, who drinks a half of a liter of vodka a day. He presented with abdominal pain. We did some imaging. He does have pancreatitis. He also has an elevation of his lipase. I discussed the case with the ER physician. We are going to admit the patient and consult GI. PAST MEDICAL HISTORY: Pancreatitis, alcoholism, previous tobacco abuse. ALLERGIES: None. FAMILY HISTORY: Alcoholism. SOCIAL HISTORY: He drinks. He used to smoke. No drugs. MEDICATIONS: Reviewed, please refer to the MRAD. REVIEW OF SYSTEMS: GENERAL: No history of weight change, weakness or fevers. SKIN: No bruising, hair changes or rashes. EYES: No blurred, double or loss of vision. NOSE AND THROAT: No history of nosebleeds, hoarseness or sore throat. HEART: No history of palpitations, chest pain or shortness of breath on exertion. LUNGS: Denies cough, hemoptysis, wheezing or shortness of breath. GASTROINTESTINAL: He complains of abdominal pain. GENITOURINARY: No history of frequency, urgency, hesitancy or nocturia. NEUROLOGIC: Denies history of numbness, tingling, tremor or weakness. PSYCHIATRIC: No history of panic, anxiety or depression. ENDOCRINE: No history of heat or cold intolerance, polyuria or polydipsia. EXTREMITIES: Denies muscle weakness, joint pain, pain on walking or stiffness. PHYSICAL EXAMINATION: VITALS: Within normal limits and are stable. GENERAL: No apparent distress. Alert and oriented. HEENT: Normocephalic atraumatic, external auditory canals are patent. EYES: Extraocular muscles are intact, pupils are equally round and reactive to light and accommodation. MUSCULOSKELETAL: Well developed, well nourished, good range of motion. ENDOCRINE: No thyromegaly was palpated. LYMPHATICS: No cervical chain or axillary nodes were noted. HEMATOPOIETIC: No bruising. NECK: Supple, no JVD, no thyromegaly was noted. LUNGS: Clear to auscultation in all lung lovelace without rhonchi or wheezing. HEART: RRR, S1, S2 present. Peripheral pulses intact, no obvious murmurs were noted. ABDOMEN: He has decreased bowel sounds with abdominal tenderness. EXTREMITIES: Without any cyanosis, clubbing, or edema. Pedal pulses intact, Homans sign is negative. NEUROLOGIC: Normal speech, normal tone. A & O x3, moves all extremities, no obvious focal deficits. PSYCHIATRIC: Normal affect, normal mood. Stable. SKIN: No ulcerations or rashes, good skin turgor, no jaundice. VASCULAR: Good capillary refill, neurovascular bundle appears to be intact. LABORATORY DATA: Lipase is 5376. ASSESSMENT AND PLAN: Alcoholic pancreatitis. The patient has been admitted. We were doing alcohol withdrawal protocol, p.r.n. pain meds, IV procalamine, home meds, DVT prophylaxis. Full code. Consult GI. ANTONIO HUFFMAN DO DR: DALE/david JOB#: [id number] / [id number]
--- NOTE | 2020-04-12 09:42 | NUR ---
NIESHA following. Discussed with RN, pt from home, room air, clear liquid diet. RN assessing CIWA. DENNIS consulted as pt is wanting to stop drinking. Ruben will meet with pt. NIESHA will continue to follow. Addendum: 04/12/20 at 1425 by MEREDITH SCHERER Keeley WILLIAMSON) met with pt, pt declining services whilst he is inpatient. Provided with [employer] brochure and safety net clinics. Pt cleared by DENNIS. RN notified.
--- NOTE | 2020-04-12 16:26 | NUR ---
Notified Dr. Rai of patients elevated blood pressure, no new orders at this time, keep monitoring.
[2020-04-13] MEDS: MORPHINE SULFATE 2 MG/ML VIAL. IV PRN ×6 (00:02→20:20)
[2020-04-13] MEDS: ONDANSETRON PF 4 MG/2 ML VIAL. IVP PRN ×2 (00:02→05:56)
[2020-04-13 03:00] VITALS: BP 151/103
[2020-04-13] MEDS: AMINO AC 3%/ELECTROLYTE/GLYCER 1,000 ML IV SCH ×2 (06:14→19:00)
[2020-04-13 07:00] VITALS: BP 151/105
--- NOTE | 2020-04-13 08:56 | PDOC ---
PROGRESS NOTES Date of Service: DATE: 04/13/20 TIME: 08:54 Chief Complaint Chief Complaint ASSESSMENT AND PLAN: Alcoholic pancreatitis. Acute on chronic pancreatitis with diffuse peripancreatic edema/fluid, inflammatory changes and fluid extending downward along the mesentery and a small amount of free fluid within the pelvis. tobacco abuse disorder PLAN admitted. alcohol withdrawal protocol, p.r.n. pain meds, IV procalamine, home meds, DVT prophylaxis. Full code. Consult GI. smoking cessation education provided History of Present Illness History of Present Illness pleasant middle-aged male, who drinks a half of a liter of vodka a day. He presented with abdominal pain. We did some imaging. He does have pancreatitis. He also has an elevation of his lipase. admit the patient and consult GI. PAST MEDICAL HISTORY: Pancreatitis, alcoholism, tobacco abuse. ALLERGIES: None. FAMILY HISTORY: Alcoholism. SOCIAL HISTORY: He drinks. He used to smoke. No drugs. Vitals Vitals Vital Signs Date Time Temp Pulse Resp B/P (MAP) Pulse Ox O2 Delivery O2 Flow Rate FiO2 04/13/20 07:00 98.3 110 16 151/105 (120) 96 Room Air 98.3 Physical Exam General: Alert, Oriented X3, Cooperative, No acute distress Heart: Regular rate Lungs: Clear Abdomen: Soft Extremities: No cyanosis Labs LABS Findings: Chest: No newly seen abnormality. Liver: Diffuse hepatic steatosis. Gallbladder/Biliary Tree: No findings to suggest acute cholecystitis. No calcified gallstones. Nondilated common bile duct. Pancreas: Generalized peripancreatic edema/fluid. The majority of the pancreas enhances appropriately. There is again numerous foci of mineralization centered within the uncinate process. Slightly more noticeable hypoattenuation in the region of these calcifications relative to the prior but no large area of parenchymal necrosis. Spleen: Normal in size. Adrenal Glands: Unremarkable. Kidneys/Ureters/Bladder: No newly seen complex cyst or mass. No nephrolithiasis or collecting system dilatation. Reproductive Organs: Unchanged. Colon: Mild volume well-formed stool. Appendix: Unremarkable. Small Bowel: Nonobstructed. Stomach: No acute abnormality. Vasculature: Nonaneurysmal aorta. Patent central portal veins and superior mesenteric vein noting the more distal branches are not well evaluated due to bolus timing. The splenic vein is patent. The aortic branch vessels are patent where adequately evaluated. No splenic artery aneurysm is seen. Lymph Nodes: Within normal limits. Peritoneum and Body Wall: Diffuse peripancreatic edema/fluid extending downward along the mesentery. Small amount of free fluid within the pelvis. No well-circumscribed fluid collection. Bones: Unchanged rounded focus of sclerosis above the right acetabulum. No newly seen osseous abnormality. Miscellaneous: None. Impression: 1. Acute on chronic pancreatitis with diffuse peripancreatic edema/fluid, inflammatory changes and fluid extending downward along the mesentery and a small amount of free fluid within the pelvis. No large area of ankle necrosis. No associated vascular complication such as splenic vein thrombosis or splenic artery aneurysm. 2. Diffuse hepatic steatosis. Electronically signed by: CHANTAL SHETTY MD (04/12/2020 3:01 AM) [id number] DICTATED and SIGNED BY: CHANTAL SHETTY MD DATE: 04/12/20 0301 Review of Systems Review of Systems Tobacco use continues to be the leading cause of preventable in the [place]. In 1963, the Surgeon General of the [place] issued the report of his Advisory Committee on Smoking and Health, officially recognizing that cigarette smoking is a cause of cancer and other serious diseases. Though smoking rates have significantly declined, 9.3 percent (95% CI = 0.8) of the population age 65 and older smokes cigarettes.1 Approximately 440,000 people annually from smoking related disease, with 68% (300,000) age 65 or older.2 Many more people of all ages suffer from serious illness caused from smoking, leading to disability and decreased quality of life.3 Reduction in smoking prevalence is a national objective in Healthy People 2010 ([place] Department of Health and Human Services [USDHHS] 2000). Smoking is associated with a variety of adverse health effects. The 2004 Surgeon Generals report on the health consequences of smoking expanded the list of diseases causally linked to smoking.4 Smoking causes heart disease, stroke, multiple cancers, respiratory diseases, gastrointestinal disease, cataracts and osteoporosis (in postmenopausal women).4 Smoking can cause clinically significant tobacco-drug interactions. In the elderly and disabled Medicare populations, smokers report worse physical and mental functional status than people who never smoked.5 Smoking affects the function of the immune system and is also associated with higher levels of chronic inflammation.4 On average, nonsmokers survived 1.6 3.9 years longer than those who have ever smoked.6 Using smokeless tobacco is not a good substitute for smoking, as it is known to similarly cause cancer.7 The direct costs of cigarette smoking to the health care system are substantial. In 1992, smoking cost the Medicare program about $14.2 billion, or approximately 10 percent of [facility] total budget.8 In the general population, direct medical costs for the detection, treatment and rehabilitation of persons with smoking attributable clinical diseases constitute 6 to 8 percent of the total annual expenditures for health care, with an upper limit suggested as high as 14 percent.4 Abstinence from tobacco improves health. In 1989, Surgeon General Lupe Quiroz issued The Health Benefits of Smoking Cessation, a comprehensive and rigorous review of the evidence that concluded: the benefits of cessation extend to quitting at older ages.9 Smoking cessation in older adults leads to significant risk reduction and other health benefits, even in those who have smoked for years.4,9,10,11 These benefits include: Prevention or reduction in the risk of cardiovascular disease, with a decline in risk of within the first year after quitting.10,12,13,14 Prevention or reduction in the risk of respiratory diseases.15 Prevention or reduction in the risk of many cancers.4,16 Extending life and increasing a level of independent functioning that is less restricted or impaired.17,18 Tobacco abstinence can be accomplished. About 10% of elderly smokers quit each year, with only a one percent relapse rate.19 A report by the CDC (2002) estimated that about 57% of smokers age 65 and over report a desire to quit.20 Smoking cessation assistance options have expanded over time. Current options include self-help literature, quit-smoking classes and support groups, individual or group counseling, and pharmacotherapy. Pharmacotherapy includes over the counter medications such as nicotine replacement therapy in the form of gum or patches and prescription medications including nicotine replacement via nasal spray and inhaler, and bupropion. Comment Review of Relevant I have reviewed the following items donnie (where applicable) has been applied. Labs Laboratory Tests Test 04/12/20 01:25 White Blood Count 11.9 x10^3/uL (4.0-11.0) Red Blood Count 5.30 x10^6/uL (4.30-5.70) Hemoglobin 16.3 g/dL (13.0-17.5) Hematocrit 48.2 % (39.0-53.0) Mean Corpuscular Volume 91 fL (79-100) Mean Corpuscular Hemoglobin 31 pg (25-35) Mean Corpuscular Hemoglobin Concent 34 g/dL (31-37) Red Cell Distribution Width 14.6 % (11.5-14.5) Platelet Count 199 x10^3/uL (140-400) Neutrophils (%) (Auto) 91 % (31-73) Lymphocytes (%) (Auto) 3 % (24-48) Monocytes (%) (Auto) 6 % (0-9) Eosinophils (%) (Auto) 0 % (0-3) Basophils (%) (Auto) 0 % (0-3) Neutrophils # (Auto) 10.7 x10^3/uL (1.8-7.7) Lymphocytes # (Auto) 0.3 x10^3/uL (1.0-4.8) Monocytes # (Auto) 0.8 x10^3/uL (0.0-1.1) Eosinophils # (Auto) 0.0 x10^3/uL (0.0-0.7) Basophils # (Auto) 0.1 x10^3/uL (0.0-0.2) Segmented Neutrophils % 95 % (35-66) Band Neutrophils % 1 % (0-9) Lymphocytes % 1 % (24-48) Monocytes % 3 % (0-10) Platelet Estimate Adequate (ADEQUATE) Prothrombin Time 12.4 SEC (11.7-14.0) Prothromb Time International Ratio 1.0 (0.8-1.1) Sodium Level 139 mmol/L (136-145) Potassium Level 3.9 mmol/L (3.5-5.1) Chloride Level 101 mmol/L (98-107) Carbon Dioxide Level 27 mmol/L (21-32) Anion Gap 11 (6-14) Blood Urea Nitrogen 8 mg/dL (8-26) Creatinine 0.9 mg/dL (0.7-1.3) Estimated GFR (Cockcroft-Gault) 116.9 BUN/Creatinine Ratio 9 (6-20) Glucose Level 114 mg/dL (70-99) Calcium Level 9.5 mg/dL (8.5-10.1) Magnesium Level 1.9 mg/dL (1.8-2.4) Total Bilirubin 0.6 mg/dL (0.2-1.0) Aspartate Amino Transf (AST/SGOT) 38 U/L (15-37) Alanine Aminotransferase (ALT/SGPT) 26 U/L (16-63) Alkaline Phosphatase 58 U/L (46-116) Total Protein 8.2 g/dL (6.4-8.2) Albumin 4.1 g/dL (3.4-5.0) Albumin/Globulin Ratio 1.0 (1.0-1.7) Lipase 5376 U/L (73-393) Medications Current Medications Ringer's Solution 1,000 ml @ 1,000 mls/hr 1X ONCE IV Last administered on 04/12/20at :28; Start 04/12/20 at 01:15; Stop 04/12/20 at 02:14; Status DC Ondansetron HCl (Zofran) 4 mg 1X ONCE IVP Last administered on 04/12/20at 27; Start 04/12/20 at 01:15; Stop 04/12/20 at 01:16; Status DC Morphine Sulfate (Morphine Sulfate) 4 mg 1X ONCE IV Last administered on 04/12/20at :27; Start 04/12/20 at 01:30; Stop 04/12/20 at 01:31; Status DC Iohexol (Omnipaque 300 Mg/ml) 75 ml 1X ONCE IV Last administered on 04/12/20at 02:27; Start 04/12/20 at 02:15; Stop 04/12/20 at 02:16; Status DC Info (CONTRAST GIVEN -- Rx MONITORING) 1 each PRN DAILY PRN MC SEE COMMENTS; Start 04/12/20 at 02:15; Stop 04/14/20 at 02:14 Ringer's Solution 1,000 ml @ 200 mls/hr 1X ONCE IV Last administered on 04/12/20at 03:02; Start 04/12/20 at 02:30; Stop 04/12/20 at 07:29; Status DC Hydromorphone HCl (Dilaudid) 1 mg 1X ONCE IV Last administered on 04/12/20at 03:01; Start 04/12/20 at 02:45; Stop 04/12/20 at 02:46; Status DC Thiamine Mononitrate (Vitamin B-1) 100 mg 1X ONCE PO Last administered on 04/12/20at 03:00; Start 04/12/20 at 02:45; Stop 04/12/20 at 02:46; Status DC Folic Acid (Folic Acid) 1 mg 1X ONCE PO Last administered on 04/12/20at 03:00; Start 04/12/20 at 02:45; Stop 04/12/20 at 02:46; Status DC Morphine Sulfate (Morphine Sulfate) 2 mg PRN Q2HR PRN IV PAIN Last administered on 04/13/20at 05:56; Start 04/12/20 at 04:45 Ondansetron HCl (Zofran) 4 mg PRN Q4HRS PRN IVP NAUSEA/VOMITING Last administered on 04/13/20at 05:56; Start 04/12/20 at 04:45 Amino Acids/ Glycerin/ Electrolytes 1,000 ml @ 80 mls/hr [id number] IV Last administered on 04/13/20at 06:14; Start 04/12/20 at 05:00 Active Scripts Active Reported No Known Medications Prior To Admisstion (Info) Each 1 Each MC 1X Vitals/I & O Vital Sign - Last 24 Hours 04/12/20 04/12/20 04/12/20 04/12/20 10:06 11:00 11:22 12:14 Temp 98.6 98.6 Pulse 81 Resp 20 B/P (MAP) 157/113 (128) Pulse Ox 99 98 99 99 O2 Delivery Room Air Room Air Room Air Room Air 04/12/20 04/12/20 04/12/20 04/12/20 13:02 15:00 16:23 16:54 Temp 98.8 98.8 Pulse 83 Resp 20 B/P (MAP) 161/113 (129) Pulse Ox 99 97 97 97 O2 Delivery Room Air Room Air Room Air Room Air 04/12/20 04/12/20 04/12/20 04/12/20 17:09 18:38 19:00 19:08 Temp 99.4 99.4 Pulse 83 Resp 18 B/P (MAP) 147/98 (114) 149/95 (113) Pulse Ox 97 97 O2 Delivery Room Air Room Air Room Air 04/12/20 04/12/20 04/12/20 04/12/20 20:00 20:39 21:09 23:00 Temp 99.9 99.9 Pulse 97 Resp 18 B/P (MAP) 156/111 (126) Pulse Ox 98 O2 Delivery Room Air Room Air Room Air Room Air 04/13/20 04/13/20 04/13/20 04/13/20 00:02 00:37 03:00 05:56 Temp 99.3 99.3 Pulse 84 Resp 18 B/P (MAP) 151/103 (119) Pulse Ox 98 O2 Delivery Room Air Room Air Room Air Room Air 04/13/20 04/13/20 06:26 07:00 Temp 98.3 98.3 Pulse 110 Resp 16 B/P (MAP) 151/105 (120) Pulse Ox 96 O2 Delivery Room Air Room Air Intake and Output 04/12/20 04/12/20 04/13/20 14:59 22:59 06:59 Intake Total 0 ml Output Total 600 ml 600 ml Balance 0 ml -600 ml -600 ml Justicifation of Admission Dx: Justifications for Admission: Justification of Admission Dx: Yes ABEBA RASHEED MD Apr 13, 2020 08:56
--- NOTE | 2020-04-13 09:52 | NUR ---
SW following. Discussed with RN, pt from home, clear liquid diet, PPN. PT/OT recommending home. Awaiting return of bowel function. SW will continue to follow.
[2020-04-13 11:00] VITALS: BP 145/104
[2020-04-13 15:00] VITALS: BP 137/92
[2020-04-13 19:00] VITALS: BP 137/88
[2020-04-13 23:00] VITALS: BP 136/98
[2020-04-14] MEDS: MORPHINE SULFATE 2 MG/ML VIAL. IV PRN ×2 (00:25→07:58)
[2020-04-14 03:00] VITALS: BP 129/96
[2020-04-14 07:00] VITALS: BP 131/89
[2020-04-14] MEDS: AMINO AC 3%/ELECTROLYTE/GLYCER 1,000 ML IV SCH (08:00)
--- NOTE | 2020-04-14 09:35 | PDOC ---
PROGRESS NOTES Date of Service: DATE: 04/14/20 TIME: 09:35 Chief Complaint Chief Complaint DISCHARGE DX Alcoholic pancreatitis. Acute on chronic pancreatitis with diffuse peripancreatic edema/fluid, inflammatory changes and fluid extending downward along the mesentery and a small amount of free fluid within the pelvis. tobacco abuse disorder 04/14, LIPASE BETTER, WANTS TO GO HOME, PARENTS ARE DPOA , REVIEWED, DISCUSSED PLAN admitted. alcohol withdrawal protocol, p.r.n. pain meds, IV procalamine, home meds, DVT prophylaxis. Full code. Consult GI. smoking cessation education provided D/W RN LIPASE TODAY GI CONSULT NOTED 33 MIN D/C PLANNING TIME History of Present Illness History of Present Illness pleasant middle-aged male, who drinks a half of a liter of vodka a day. He presented with abdominal pain. We did some imaging. He does have pancreatitis. He also has an elevation of his lipase. admit the patient and consult GI. PAST MEDICAL HISTORY: Pancreatitis, alcoholism, tobacco abuse. ALLERGIES: None. FAMILY HISTORY: Alcoholism. SOCIAL HISTORY: He drinks. He used to smoke. No drugs. Vitals Vitals Vital Signs Date Time Temp Pulse Resp B/P (MAP) Pulse Ox O2 Delivery O2 Flow Rate FiO2 04/14/20 07:58 98 Room Air 04/14/20 07:00 98.0 74 20 131/89 (103) 98.0 Physical Exam General: Alert, Oriented X3, Cooperative, No acute distress Heart: Regular rate, Normal S1, Normal S2 Lungs: Clear Abdomen: Normal bowel sounds, Soft Extremities: No clubbing, No cyanosis Labs LABS Pancreas: Generalized peripancreatic edema/fluid. The majority of the pancreas enhances appropriately. There is again numerous foci of mineralization centered within the uncinate process. Slightly more noticeable hypoattenuation in the region of these calcifications relative to the prior but no large area of parenchymal necrosis. Spleen: Normal in size. Adrenal Glands: Unremarkable. Kidneys/Ureters/Bladder: No newly seen complex cyst or mass. No nephrolithiasis or collecting system dilatation. Reproductive Organs: Unchanged. Colon: Mild volume well-formed stool. Appendix: Unremarkable. Small Bowel: Nonobstructed. Stomach: No acute abnormality. Vasculature: Nonaneurysmal aorta. Patent central portal veins and superior mesenteric vein noting the more distal branches are not well evaluated due to bolus timing. The splenic vein is patent. The aortic branch vessels are patent where adequately evaluated. No splenic artery aneurysm is seen. Lymph Nodes: Within normal limits. Peritoneum and Body Wall: Diffuse peripancreatic edema/fluid extending downward along the mesentery. Small amount of free fluid within the pelvis. No well-circumscribed fluid collection. Bones: Unchanged rounded focus of sclerosis above the right acetabulum. No newly seen osseous abnormality. Miscellaneous: None. Impression: 1. Acute on chronic pancreatitis with diffuse peripancreatic edema/fluid, inflammatory changes and fluid extending downward along the mesentery and a small amount of free fluid within the pelvis. No large area of ankle necrosis. No associated vascular complication such as splenic vein thrombosis or splenic artery aneurysm. 2. Diffuse hepatic steatosis. Electronically signed by: CHANTAL SHETTY MD (04/12/2020 3:01 AM) [id number] DICTATED and SIGNED BY: CHANTAL SHETTY MD Comment Review of Relevant I have reviewed the following items donnie (where applicable) has been applied. Medications Current Medications Ringer's Solution 1,000 ml @ 1,000 mls/hr 1X ONCE IV Last administered on 04/12/20at :28; Start 04/12/20 at 01:15; Stop 04/12/20 at 02:14; Status DC Ondansetron HCl (Zofran) 4 mg 1X ONCE IVP Last administered on 04/12/20at :; Start 04/12/20 at 01:15; Stop 04/12/20 at 01:16; Status DC Morphine Sulfate (Morphine Sulfate) 4 mg 1X ONCE IV Last administered on 04/12/20at :; Start 04/12/20 at 01:30; Stop 04/12/20 at 01:31; Status DC Iohexol (Omnipaque 300 Mg/ml) 75 ml 1X ONCE IV Last administered on 04/12/20at :27; Start 04/12/20 at 02:15; Stop 04/12/20 at 02:16; Status DC Info (CONTRAST GIVEN -- Rx MONITORING) 1 each PRN DAILY PRN MC SEE COMMENTS; Start 04/12/20 at 02:15; Stop 04/14/20 at 02:14; Status DC Ringer's Solution 1,000 ml @ 200 mls/hr 1X ONCE IV Last administered on 04/12/20 03:02; Start 04/12/20 at 02:30; Stop 04/12/20 at 07:29; Status DC Hydromorphone HCl (Dilaudid) 1 mg 1X ONCE IV Last administered on 04/12/20at 03:01; Start 04/12/20 at 02:45; Stop 04/12/20 at 02:46; Status DC Thiamine Mononitrate (Vitamin B-1) 100 mg 1X ONCE PO Last administered on 04/12/20at 03:00; Start 04/12/20 at 02:45; Stop 04/12/20 at 02:46; Status DC Folic Acid (Folic Acid) 1 mg 1X ONCE PO Last administered on 04/12/20at 03:00; Start 04/12/20 at 02:45; Stop 04/12/20 at 02:46; Status DC Morphine Sulfate (Morphine Sulfate) 2 mg PRN Q2HR PRN IV PAIN Last administered on 04/14/20 07:58; Start 04/12/20 at 04:45 Ondansetron HCl (Zofran) 4 mg PRN Q4HRS PRN IVP NAUSEA/VOMITING Last administered on 04/13/20 05:56; Start 04/12/20 at 04:45 Amino Acids/ Glycerin/ Electrolytes 1,000 ml @ 80 mls/hr [id number] IV Last administered on 04/14/20 08:00; Start 04/12/20 at 05:00 Active Scripts Active Reported No Known Medications Prior To Admisstion (Info) Each 1 Each MC 1X Vitals/I & O Vital Sign - Last 24 Hours 04/13/20 04/13/20 04/13/20 04/13/20 09:45 11:00 13:19 14:05 Temp 97.9 97.9 Pulse 72 Resp 20 20 B/P (MAP) 145/104 (118) Pulse Ox 95 94 95 94 O2 Delivery Room Air Room Air Room Air Room Air 04/13/20 04/13/20 04/13/20 04/13/20 15:00 15:58 16:35 19:00 Temp 98.5 99.0 98.5 99.0 Pulse 88 94 Resp 20 18 B/P (MAP) 137/92 (107) 137/88 (104) Pulse Ox 94 94 95 98 O2 Delivery Room Air Room Air Room Air Room Air 04/13/20 04/13/20 04/13/20 04/13/20 20:00 20:20 21:00 23:00 Temp 98.8 98.8 Pulse 88 Resp 18 18 B/P (MAP) 136/98 (111) Pulse Ox 98 98 O2 Delivery Room Air Room Air Room Air 04/14/20 04/14/20 04/14/20 03:00 07:00 07:58 Temp 98.6 98.0 98.6 98.0 Pulse 102 74 Resp 18 20 B/P (MAP) 129/96 (107) 131/89 (103) Pulse Ox 98 99 98 O2 Delivery Room Air Room Air Room Air Intake and Output 04/13/20 04/13/20 04/14/20 14:59 22:59 06:59 Output Total 775 ml Balance -775 ml Justicifation of Admission Dx: Justifications for Admission: Justification of Admission Dx: Yes ABEBA RASHEED MD Apr 14, 2020 09:35
--- NOTE | 2020-04-14 09:43 | NUR ---
SW following. Discussed with RN, pt on clear liquid diet and PPN (possibly being stopped today). Pt cleared for discharge per PAT. RN advised no SW needs, anticipate possible discharge home today. SW will continue to follow, should any discharge needs arise.
[2020-04-14 11:00] VITALS: BP 128/86
[2020-04-14 12:26] LABS: BASO % 1 % (0-3); EOS # 0.1 x10^3/uL (0.0-0.7); EOS % 1 % (0-3); HEMATOCRIT 46.9 % (39.0-53.0); HEMOGLOBIN 15.9 g/dL (13.0-17.5); LYMPH # 0.8 x10^3/uL (1.0-4.8); LYMPH % 13 % (24-48); MEAN CORPUSCULAR HEMOGLOBIN 31 pg (25-35); MEAN CORPUSCULAR HGB CONC 34 g/dL (31-37); MEAN CORPUSCULAR VOLUME 90 fL (79-100); MONO # 0.7 x10^3/uL (0.0-1.1); MONO % 11 % (0-9); NEUT # 4.2 x10^3/uL (1.8-7.7); NEUT % 74 % (31-73); PLATELET COUNT 161 x10^3/uL (140-400); RED BLOOD COUNT 5.19 x10^6/uL (4.30-5.70); RED CELL DISTRIBUTION WIDTH 14.5 % (11.5-14.5); WHITE BLOOD COUNT 5.7 x10^3/uL (4.0-11.0)
[2020-04-14 13:02] LABS: ALBUMIN 3.3 g/dL (3.4-5.0); ALBUMIN/GLOBULIN RATIO 0.7 (1.0-1.7); CALCIUM 9.6 mg/dL (8.5-10.1); CREATININE 0.9 mg/dL (0.7-1.3); GFR 116.9; POTASSIUM 4.4 mmol/L (3.5-5.1); TOTAL BILIRUBIN 0.6 mg/dL (0.2-1.0); TOTAL PROTEIN 8.1 g/dL (6.4-8.2)
--- NOTE | 2020-04-14 13:59 | PDOC2 ---
GI CONSULT Date of Service: DATE: 04/14/20 TIME: 13:53 Reason For Consult: pancreatitis HPI: HPI: 35 y/o male who we've seen several times. Admitted 2 days ago - he tells me was told he could go home today. Came to hospital w/ abd pain and vomiting similar to past episodes of pancreatitis. Precipitated by alcohol. Denies reflux/heartburn, dysphagia, vomiting, diarrhea, constipation, hematochezia, melena, and weight loss. No previous EGD or colonoscopy. No GB or PUD history. Chart lists h/o Hep C - viral serologies negative here in the past. No NSAIDs. Ready for DC per nurse. PMH: PMH: pancreatitis, substance abuse, hemorrhoids FH: Family History: No pertinent hx Social History: ALCOHOL: heavy Drugs: Other (PCP) ROS: GEN: Denies fevers, chills, sweats HEENT: Denies blurred vision, sore throat CV: Denies chest pain RESP: Denies shortness of air, cough GI: Per HPI : Denies hematuria, dysuria ENDO: Denies weight changes NEURO: Denies confusion, dizziness MSK: Denies weakness, joint pain/swelling SKIN: Denies jaundice, pruritus Vitals: Vitals: Vital Signs Date Time Temp Pulse Resp B/P (MAP) Pulse Ox O2 Delivery O2 Flow Rate FiO2 04/14/20 11:00 97.9 72 18 128/86 (100) 100 Room Air 97.9 Labs: Labs: Laboratory Tests Test 04/14/20 12:17 White Blood Count 5.7 x10^3/uL (4.0-11.0) Red Blood Count 5.19 x10^6/uL (4.30-5.70) Hemoglobin 15.9 g/dL (13.0-17.5) Hematocrit 46.9 % (39.0-53.0) Mean Corpuscular Volume 90 fL (79-100) Mean Corpuscular Hemoglobin 31 pg (25-35) Mean Corpuscular Hemoglobin Concent 34 g/dL (31-37) Red Cell Distribution Width 14.5 % (11.5-14.5) Platelet Count 161 x10^3/uL (140-400) Neutrophils (%) (Auto) 74 % (31-73) Lymphocytes (%) (Auto) 13 % (24-48) Monocytes (%) (Auto) 11 % (0-9) Eosinophils (%) (Auto) 1 % (0-3) Basophils (%) (Auto) 1 % (0-3) Neutrophils # (Auto) 4.2 x10^3/uL (1.8-7.7) Lymphocytes # (Auto) 0.8 x10^3/uL (1.0-4.8) Monocytes # (Auto) 0.7 x10^3/uL (0.0-1.1) Eosinophils # (Auto) 0.1 x10^3/uL (0.0-0.7) Basophils # (Auto) 0.0 x10^3/uL (0.0-0.2) Sodium Level 137 mmol/L (136-145) Potassium Level 4.4 mmol/L (3.5-5.1) Chloride Level 100 mmol/L (98-107) Carbon Dioxide Level 32 mmol/L (21-32) Anion Gap 5 (6-14) Blood Urea Nitrogen 11 mg/dL (8-26) Creatinine 0.9 mg/dL (0.7-1.3) Estimated GFR (Cockcroft-Gault) 116.9 BUN/Creatinine Ratio 12 (6-20) Glucose Level 96 mg/dL (70-99) Calcium Level 9.6 mg/dL (8.5-10.1) Total Bilirubin 0.6 mg/dL (0.2-1.0) Aspartate Amino Transf (AST/SGOT) 35 U/L (15-37) Alanine Aminotransferase (ALT/SGPT) 24 U/L (16-63) Alkaline Phosphatase 65 U/L (46-116) Total Protein 8.1 g/dL (6.4-8.2) Albumin 3.3 g/dL (3.4-5.0) Albumin/Globulin Ratio 0.7 (1.0-1.7) Lipase 1057 U/L (73-393) Allergies: Coded Allergies: No Known Drug Allergies (Unverified , 03/24/14) Imaging: Imaging: CT A/P Impression: 1. Acute on chronic pancreatitis with diffuse peripancreatic edema/fluid, inflammatory changes and fluid extending downward along the mesentery and a small amount of free fluid within the pelvis. No large area of ankle necrosis. No associated vascular complication such as splenic vein thrombosis or splenic artery aneurysm. 2. Diffuse hepatic steatosis. PE: GEN: NAD HEENT: Atraumatic, PERRL LUNGS: CTAB HEART: RRR ABD: NABS, S/ND/NT EXTREMITY: No edema SKIN: No rashes, no jaundice NEURO/PSYCH: A & O 3 A/P: A/P: Acute/chronic pancreatitis Hepatic steatosis -- Pain improved, tolerating PO, ADAT, stop alcohol, DC per Dr. Ching. ZAY AMADOR Apr 14, 2020 13:59
--- NOTE | 2020-04-14 14:22 | PDOC3 ---
Discharge Summary Date of Admission: Apr 12, 2020 Date of Discharge: Apr 14, 2020 Follow-Up: 3-5 days Admitting Diagnosis comment: DISCHARGE DX Alcoholic pancreatitis. Acute on chronic pancreatitis with diffuse peripancreatic edema/fluid, inflammatory changes and fluid extending downward along the mesentery and a small amount of free fluid within the pelvis. tobacco abuse disorder 04/14, LIPASE BETTER, WANTS TO GO HOME, PARENTS ARE DPOA , REVIEWED, DISCUSSED PLAN admitted. alcohol withdrawal protocol, p.r.n. pain meds, IV procalamine, home meds, DVT prophylaxis. Full code. Consult GI. smoking cessation education provided D/W RN LIPASE TODAY GI CONSULT NOTED 33 MIN D/C PLANNING TIME History of Present Illness History of Present Illness pleasant middle-aged male, who drinks a half of a liter of vodka a day. He presented with abdominal pain. We did some imaging. He does have pancreatitis. He also has an elevation of his lipase. admit the patient and consult GI. PAST MEDICAL HISTORY: Pancreatitis, alcoholism, tobacco abuse. ALLERGIES: None. FAMILY HISTORY: Alcoholism. SOCIAL HISTORY: He drinks. He used to smoke. No drugs. Vitals Vitals Vital Signs Date Time Temp Pulse Resp B/P (MAP) Pulse Ox O2 Delivery O2 Flow Rate FiO2 04/14/20 07:58 98 Room Air 04/14/20 07:00 98.0 74 20 131/89 (103) 98.0 Physical Exam General: Alert, Oriented X3, Cooperative, No acute distress Heart: Regular rate, Normal S1, Normal S2 Lungs: Clear Abdomen: Normal bowel sounds, Soft Extremities: No clubbing, No cyanosis Labs LABS Pancreas: Generalized peripancreatic edema/fluid. The majority of the pancreas enhances appropriately. There is again numerous foci of mineralization centered within the uncinate process. Slightly more noticeable hypoattenuation in the region of these calcifications relative to the prior but no large area of parenchymal necrosis. Spleen: Normal in size. Adrenal Glands: Unremarkable. Kidneys/Ureters/Bladder: No newly seen complex cyst or mass. No nephrolithiasis or collecting system dilatation. Reproductive Organs: Unchanged. Colon: Mild volume well-formed stool. Appendix: Unremarkable. Small Bowel: Nonobstructed. Stomach: No acute abnormality. Vasculature: Nonaneurysmal aorta. Patent central portal veins and superior mesenteric vein noting the more distal branches are not well evaluated due to bolus timing. The splenic vein is patent. The aortic branch vessels are patent where adequately evaluated. No splenic artery aneurysm is seen. Lymph Nodes: Within normal limits. Peritoneum and Body Wall: Diffuse peripancreatic edema/fluid extending downward along the mesentery. Small amount of free fluid within the pelvis. No well-circumscribed fluid collection. Bones: Unchanged rounded focus of sclerosis above the right acetabulum. No newly seen osseous abnormality. Miscellaneous: None. Impression: 1. Acute on chronic pancreatitis with diffuse peripancreatic edema/fluid, inflammatory changes and fluid extending downward along the mesentery and a small amount of free fluid within the pelvis. No large area of ankle necrosis. No associated vascular complication such as splenic vein thrombosis or splenic artery aneurysm. 2. Diffuse hepatic steatosis. Electronically signed by: CHANTAL SHETTY MD (04/12/2020 3:01 AM) [id number] DICTATED and SIGNED BY: CHANTAL SHETTY MD Brief Hospital Course Mr. Pa is a 35 old [sex] who presented with [ ALCOHOL INDUCED PANCREATITIS] CONDITION AT DISCHARGE: Improved Discharge Medications Current Medications Ringer's Solution 1,000 ml @ 1,000 mls/hr 1X ONCE IV Last administered on 04/12/20at :28; Start 04/12/20 at 01:15; Stop 04/12/20 at 02:14; Status DC Ondansetron HCl (Zofran) 4 mg 1X ONCE IVP Last administered on 04/12/20at :27; Start 04/12/20 at 01:15; Stop 04/12/20 at 01:16; Status DC Morphine Sulfate (Morphine Sulfate) 4 mg 1X ONCE IV Last administered on 04/12/20at :27; Start 04/12/20 at 01:30; Stop 04/12/20 at 01:31; Status DC Iohexol (Omnipaque 300 Mg/ml) 75 ml 1X ONCE IV Last administered on 04/12/20at :27; Start 04/12/20 at 02:15; Stop 04/12/20 at 02:16; Status DC Info (CONTRAST GIVEN -- Rx MONITORING) 1 each PRN DAILY PRN MC SEE COMMENTS; Start 04/12/20 at 02:15; Stop 04/14/20 at 02:14; Status DC Ringer's Solution 1,000 ml @ 200 mls/hr 1X ONCE IV Last administered on 04/12/20at 03:02; Start 04/12/20 at 02:30; Stop 04/12/20 at 07:29; Status DC Hydromorphone HCl (Dilaudid) 1 mg 1X ONCE IV Last administered on 04/12/20at 03:01; Start 04/12/20 at 02:45; Stop 04/12/20 at 02:46; Status DC Thiamine Mononitrate (Vitamin B-1) 100 mg 1X ONCE PO Last administered on 04/12/20at 03:00; Start 04/12/20 at 02:45; Stop 04/12/20 at 02:46; Status DC Folic Acid (Folic Acid) 1 mg 1X ONCE PO Last administered on 04/12/20at 03:00; Start 04/12/20 at 02:45; Stop 04/12/20 at 02:46; Status DC Morphine Sulfate (Morphine Sulfate) 2 mg PRN Q2HR PRN IV PAIN Last administered on 04/14/20at 07:58; Start 04/12/20 at 04:45 Ondansetron HCl (Zofran) 4 mg PRN Q4HRS PRN IVP NAUSEA/VOMITING Last administered on 04/13/20at 05:56; Start 04/12/20 at 04:45 Amino Acids/ Glycerin/ Electrolytes 1,000 ml @ 80 mls/hr [id number] IV Last administered on 04/14/20at 08:00; Start 04/12/20 at 05:00 Active Scripts Active Reported No Known Medications Prior To Admisstion (Info) Each 1 Each MC 1X Vital Signs Vital Signs Date Time Temp Pulse Resp B/P (MAP) Pulse Ox O2 Delivery O2 Flow Rate FiO2 04/14/20 11:00 97.9 72 18 128/86 (100) 100 Room Air 97.9 Labs Laboratory Tests Test 04/14/20 12:17 White Blood Count 5.7 x10^3/uL (4.0-11.0) Red Blood Count 5.19 x10^6/uL (4.30-5.70) Hemoglobin 15.9 g/dL (13.0-17.5) Hematocrit 46.9 % (39.0-53.0) Mean Corpuscular Volume 90 fL (79-100) Mean Corpuscular Hemoglobin 31 pg (25-35) Mean Corpuscular Hemoglobin Concent 34 g/dL (31-37) Red Cell Distribution Width 14.5 % (11.5-14.5) Platelet Count 161 x10^3/uL (140-400) Neutrophils (%) (Auto) 74 % (31-73) Lymphocytes (%) (Auto) 13 % (24-48) Monocytes (%) (Auto) 11 % (0-9) Eosinophils (%) (Auto) 1 % (0-3) Basophils (%) (Auto) 1 % (0-3) Neutrophils # (Auto) 4.2 x10^3/uL (1.8-7.7) Lymphocytes # (Auto) 0.8 x10^3/uL (1.0-4.8) Monocytes # (Auto) 0.7 x10^3/uL (0.0-1.1) Eosinophils # (Auto) 0.1 x10^3/uL (0.0-0.7) Basophils # (Auto) 0.0 x10^3/uL (0.0-0.2) Sodium Level 137 mmol/L (136-145) Potassium Level 4.4 mmol/L (3.5-5.1) Chloride Level 100 mmol/L (98-107) Carbon Dioxide Level 32 mmol/L (21-32) Anion Gap 5 (6-14) Blood Urea Nitrogen 11 mg/dL (8-26) Creatinine 0.9 mg/dL (0.7-1.3) Estimated GFR (Cockcroft-Gault) 116.9 BUN/Creatinine Ratio 12 (6-20) Glucose Level 96 mg/dL (70-99) Calcium Level 9.6 mg/dL (8.5-10.1) Total Bilirubin 0.6 mg/dL (0.2-1.0) Aspartate Amino Transf (AST/SGOT) 35 U/L (15-37) Alanine Aminotransferase (ALT/SGPT) 24 U/L (16-63) Alkaline Phosphatase 65 U/L (46-116) Total Protein 8.1 g/dL (6.4-8.2) Albumin 3.3 g/dL (3.4-5.0) Albumin/Globulin Ratio 0.7 (1.0-1.7) Lipase 1057 U/L (73-393) Laboratory Tests Test 04/14/20 12:17 White Blood Count 5.7 x10^3/uL (4.0-11.0) Red Blood Count 5.19 x10^6/uL (4.30-5.70) Hemoglobin 15.9 g/dL (13.0-17.5) Hematocrit 46.9 % (39.0-53.0) Mean Corpuscular Volume 90 fL (79-100) Mean Corpuscular Hemoglobin 31 pg (25-35) Mean Corpuscular Hemoglobin Concent 34 g/dL (31-37) Red Cell Distribution Width 14.5 % (11.5-14.5) Platelet Count 161 x10^3/uL (140-400) Neutrophils (%) (Auto) 74 % (31-73) Lymphocytes (%) (Auto) 13 % (24-48) Monocytes (%) (Auto) 11 % (0-9) Eosinophils (%) (Auto) 1 % (0-3) Basophils (%) (Auto) 1 % (0-3) Neutrophils # (Auto) 4.2 x10^3/uL (1.8-7.7) Lymphocytes # (Auto) 0.8 x10^3/uL (1.0-4.8) Monocytes # (Auto) 0.7 x10^3/uL (0.0-1.1) Eosinophils # (Auto) 0.1 x10^3/uL (0.0-0.7) Basophils # (Auto) 0.0 x10^3/uL (0.0-0.2) Sodium Level 137 mmol/L (136-145) Potassium Level 4.4 mmol/L (3.5-5.1) Chloride Level 100 mmol/L (98-107) Carbon Dioxide Level 32 mmol/L (21-32) Anion Gap 5 (6-14) Blood Urea Nitrogen 11 mg/dL (8-26) Creatinine 0.9 mg/dL (0.7-1.3) Estimated GFR (Cockcroft-Gault) 116.9 BUN/Creatinine Ratio 12 (6-20) Glucose Level 96 mg/dL (70-99) Calcium Level 9.6 mg/dL (8.5-10.1) Total Bilirubin 0.6 mg/dL (0.2-1.0) Aspartate Amino Transf (AST/SGOT) 35 U/L (15-37) Alanine Aminotransferase (ALT/SGPT) 24 U/L (16-63) Alkaline Phosphatase 65 U/L (46-116) Total Protein 8.1 g/dL (6.4-8.2) Albumin 3.3 g/dL (3.4-5.0) Albumin/Globulin Ratio 0.7 (1.0-1.7) Lipase 1057 U/L (73-393) Allergies Allergies Coded Allergies Type Severity Reaction Last Updated Verified No Known Drug Allergies 03/24/14 No Disposition/Orders: D/C to Home Patient Instructions CPR (cardiopulmonary resuscitation) Ventilator use Artificial nutrition (tube feeding) and artificial hydration (IV, or intravenous, fluids) Comfort care What is CPR? Cardiopulmonary resuscitation might restore your heartbeat if your heart stops or is in a life-threatening abnormal rhythm. It involves repeatedly pushing on the chest with force, while putting air into the lungs. This force has to be quite strong, and sometimes ribs are broken or a lung collapses. Electric shocks, known as defibrillation, and medicines might also be used as part of the process. The heart of a young, otherwise healthy person might resume beating normally after CPR. Often, CPR does not succeed in older adults who have multiple chronic illnesses or who are already frail. Using a ventilator as emergency treatment. Ventilators are machines that help you breathe. A tube connected to the ventilator is put through the throat into the trachea (windpipe) so the machine can force air into the lungs. Putting the tube down the throat is called intubation. Because the tube is uncomfortable, medicines are often used to keep you sedated while on a ventilator. If you are expected to remain on a ventilator for a long time, a doctor may perform a tracheotomy or "trach" (rhymes with "make"). During this bedside surgery, the tube is inserted directly into the trachea through a hole in the neck. For long- term help with breathing, a trach is more comfortable, and sedation is not needed. People using such a breathing tube are not able to speak without special help because exhaled air does not go past their vocal cords. Using artificial nutrition and hydration near the end of life. If you are not able to eat, you may be fed through a feeding tube that is threaded through the nose down to your stomach. If tube feeding is still needed for an extended period, a feeding tube may be surgically inserted directly into your stomach. Hand feeding (sometimes called assisted oral feeding) is an alternative to tube feeding. This approach may have fewer risks, especially for people with dementia. Justicifation of Admission Dx: Justifications for Admission: Justification of Admission Dx: Yes ABEBA RASHEED MD Apr 14, 2020 14:22
[2020-04-14] MEDS ORDERED: PANT40TA77 PO (14:25)
[2020-04-14] MEDS ORDERED: ACET325T9 PO (14:25)
--- NOTE | 2020-04-14 14:26 | DISCH ---
DISCHARGE INSTRUCTIONS Condition on Discharge Condition on Discharge: Stable Activity After Discharge Activity Instructions for Disc: Activity as tolerated Lifting Instructions after Dis: No heavy lifting, No pulling or pushing Driving Instructions after Dis: Do not drive today Weight Bearing Status after Di: No restrictions Diet after Discharge Diet after Discharge: Regular Liquid Texture: Thin Liquid Checks after Discharge Checks after discharge: Check blood press - daily Contacting the DRDaryl after DC Call your doctor for: If your condition worsens Treatment/Equipment after DC Adaptive Equipment Issued: None Warfarin Follow-Up Warfarin Follow UP: NO ALCOHOL, ATTEND AA DAILY, SEE PCP FRIDAY ABEBA RASHEED MD Apr 14, 2020 14:26
[2020-04-14 15:00] VITALS: BP 132/92
== END 2020-04-14 19:19 | disposition home or self-care (01) | DRG 440 ==
LOC: ER 00:22 → 4 NORTH 03:12
PROVIDERS: ADMIT Internal Medicine; ATTEND Internal Medicine
DX: K85.20 Alcohol induced acute pancreatitis without necrosis or infection (principal); K86.1 Other chronic pancreatitis; K76.0 Fatty (change of) liver, not elsewhere classified; K64.9 Unspecified hemorrhoids; K59.00 Constipation, unspecified; F41.9 Anxiety disorder, unspecified; Z51.5 Encounter for palliative care; Z72.0 Tobacco use; Z79.899 Other long term (current) drug therapy; Z81.1 Family history of alcohol abuse and dependence; Z71.6 Tobacco abuse counseling
CPT/HCPCS: 36415; 74177; 80053; 83690; 83735; 85007; 85025; 85610; 96361; 96374; 96375; J1170; J2270; J2405; J3490; J7120; Q9967; 99285-25; G0378